=== PATIENT | male | born 1935 | race Two or more races ===

== ENCOUNTER 2020-07-17 12:29 | Inpatient (IN) | payer OTHER ==
[~2020-07-17] VITALS: Ht 177.8 cm; Wt 74.4 kg
[2020-07-17] MEDS ORDERED: MAGNESIUM SULFATE 1GM/100ML 100 ML IV ONE (12:45)
[2020-07-17] MEDS ORDERED: ALBUTEROL SULF 2.5 MG/0.5ML(0.5%) NEB SOLN NEB ONE (12:45)
[2020-07-17] MEDS ORDERED: BUDESONIDE (INHALATION) 0.5 MG/2 ML NEB NEB ONE (12:45)
[2020-07-17] MEDS ORDERED: cefTRIAXone 1GM/50ML D5W 50 ML IV ONE (12:45)
[2020-07-17] MEDS ORDERED: IPRATROPIUM BROM 0.5 MG/2.5ML INH SOL NEB ONE (12:45)
[2020-07-17] MEDS ORDERED: methylPREDNISolone SOD SUCC 125 MG/2 ML VL IV ONE (12:45)
[2020-07-17] MEDS ORDERED: HYDROcodone-ACET 5/325MG TAB PO ONE (13:15)
[2020-07-17 13:54] LABS: Basophils # (auto) 0 10 ^3/uL (0-0.2); Eosinophils # (auto) 0 10 ^3/uL (0-0.8); Eosinophils % (auto) 0.4 % (0.0-7.0); Hemoglobin 13.7 g/dL (13.5-17.5); Lymphocytes # (auto) 0.9 10 ^3/uL (0.4-5.4); Neutrophils # (auto) 7.8 10 ^3/uL (1.6-8.6); Red Cell Distribution Width 14.7 % (11.8-14.3)
[2020-07-17 13:57] LABS: Basophils % (auto) 0.1 % (0.0-2.0); Hematocrit 40.2 % (41.0-53.0); Lymphocytes % (auto) 9.6 % (10.0-50.0); Mean Corpuscular Hemoglobin 35.1 pg (28.0-32.0); Mean Corpuscular Volume 103.2 fL (80.0-100.0); Monocytes # (auto) 0.8 10 ^3/uL (0-1.3); Monocytes % (auto) 8.6 % (0.0-12.0); Neutrophils % (auto) 81.3 % (37.0-80.0); Platelet Count (auto) 155 10^3/uL (140-450); White Blood Cell 9.5 10^3/uL (4.4-10.8)
[2020-07-17 14:12] LABS: INR 1.03 (0.9-1.15); Partial Thromboplastin Time 24.5 sec (23.0-31.2)
[2020-07-17] MEDS ORDERED: ENOXAPARIN SOD 80 MG/0.8ML SYRINGE SC ONE (14:45)
[2020-07-17 14:48] LABS: Albumin 3.2 g/dL (3.4-5.0); Calcium 8.7 mg/dL (8.5-10.1); Magnesium 2.3 mg/dL (1.6-2.6); Potassium 3.8 mmol/L (3.5-5.1)
[2020-07-17 14:51] LABS: Lactic Acid w/Reflex 2.7 mmol/L (0.4-2.0)
[2020-07-17 14:56] LABS: BUN/Creatinine Ratio 12.4; Bilirubin, Total 0.6 mg/dL (0.2-1.0); CRP High Sensitivity 0.7 mg/dL (< 0.3); Total Protein 6.9 g/dL (6.4-8.2)
[2020-07-17] MEDS ORDERED: IOHEXOL 350 MG/ML 100ML IJ ONE (15:28)
[2020-07-17] MEDS ORDERED: NITROGLYCERIN 0.4 MG SL TAB SL PRN (16:15)
[2020-07-17] MEDS ORDERED: LACTULOSE 20Gm/30ML SOLN PO PRN (16:15)
[2020-07-17] MEDS ORDERED: ALBUTEROL SULF 2.5 MG/0.5ML(0.5%) NEB SOLN NEB PRN (16:15)
[2020-07-17] MEDS ORDERED: MORPHINE SULF INJ 2 MG/ML SYRINGE 1ML IV PRN ×2 (16:15)
[2020-07-17] MEDS ORDERED: traMADol HCL 50 MG TAB PO PRN (16:15)
[2020-07-17] MEDS ORDERED: ONDANSETRON HCL 4 MG/2 ML VIAL IV PRN (16:15)
[2020-07-17] MEDS: SODIUM CHLORIDE 0.9% 1,000 ML IV SCH (16:41)
[2020-07-17] MEDS: ALBUTEROL SULF 2.5 MG/0.5ML(0.5%) NEB SOLN NEB SCH (18:46)
[2020-07-17] MEDS: IPRATROPIUM BROM 0.5 MG/2.5ML INH SOL NEB SCH (18:46)
[2020-07-17 21:00] VITALS: BP 158/83
[2020-07-17] MEDS: ENOXAPARIN SOD 80 MG/0.8ML SYRINGE SC SCH (21:55)
[2020-07-18 00:35] VITALS: BP 158/83
[2020-07-18] MEDS: ALBUTEROL SULF 2.5 MG/0.5ML(0.5%) NEB SOLN NEB SCH ×4 (00:41→18:18)
[2020-07-18] MEDS: IPRATROPIUM BROM 0.5 MG/2.5ML INH SOL NEB SCH ×4 (00:41→18:18)
[2020-07-18] MEDS: ACETAMINOPHEN 500 MG TAB PO PRN ×2 (01:45→08:34)
[2020-07-18 05:45] VITALS: BP 129/67
[2020-07-18 05:48] VITALS: BP 136/88
[2020-07-18] MEDS: SODIUM CHLORIDE 0.9% 1,000 ML IV SCH (06:43)
[2020-07-18 08:00] VITALS: BP 149/84
[2020-07-18] MEDS ORDERED: methylPREDNISolone SOD SUCC 125 MG/2 ML VL IV ONE (10:30)
[2020-07-18] MEDS ORDERED: LORazepam 2MG/ML-1ML VIAL IV ONE (10:30)
[2020-07-18] MEDS ORDERED: IPRATROPIUM BROM 0.5 MG/2.5ML INH SOL NEB ONE (10:30)
[2020-07-18] MEDS ORDERED: ALBUTEROL SULF 2.5 MG/0.5ML(0.5%) NEB SOLN NEB ONE (10:30)
[2020-07-18] MEDS: ENOXAPARIN SOD 80 MG/0.8ML SYRINGE SC SCH ×2 (10:33→21:23)
[2020-07-18] MEDS ORDERED: LORazepam 0.5 MG TAB PO PRN (12:30)
[2020-07-18 16:00] VITALS: BP 133/79
[2020-07-18 16:21] LABS: Urine WBC None Seen /hpf (0 - 3)
[2020-07-18 16:28] LABS: Urine Bacteria NONE SEEN /hpf (None Seen); Urine Blood Negative /uL (Negative)
[2020-07-18] MEDS: methylPREDNISolone SOD SUCC 40 MG/ML VL IV SCH (21:23)
[2020-07-18] MEDS: TEMAZEPAM 15 MG CAP PO PRN (21:23)
[2020-07-18 22:34] VITALS: BP 125/68
[2020-07-19] MEDS: ALBUTEROL SULF 2.5 MG/0.5ML(0.5%) NEB SOLN NEB SCH ×4 (00:02→20:16)
[2020-07-19] MEDS: IPRATROPIUM BROM 0.5 MG/2.5ML INH SOL NEB SCH ×4 (00:02→20:16)
[2020-07-19 05:24] VITALS: BP 140/85
[2020-07-19 08:00] VITALS: BP 151/88
[2020-07-19] MEDS: ENOXAPARIN SOD 80 MG/0.8ML SYRINGE SC SCH ×2 (10:36→23:58)
[2020-07-19] MEDS: methylPREDNISolone SOD SUCC 40 MG/ML VL IV SCH ×2 (10:40→23:58)
[2020-07-19] MEDS ORDERED: LORazepam 2MG/ML-1ML VIAL IV PRN (10:45)
[2020-07-19] MEDS ORDERED: LORATADINE 10 MG TAB PO ONE (15:45)
[2020-07-19] MEDS ORDERED: ASPI-543 PO (15:49)
[2020-07-19] MEDS ORDERED: TAM04C PO (15:49)
[2020-07-19] MEDS ORDERED: PRED1PAK9 PO (15:49)
[2020-07-19] MEDS ORDERED: MULTCAP45 PO (15:49)
[2020-07-19] MEDS ORDERED: FLUT500M2 INH (15:49)
[2020-07-19] MEDS ORDERED: TIOT17SP IN (15:49)
[2020-07-19] MEDS ORDERED: ALBUAER3 IN (15:49)
[2020-07-19] MEDS ORDERED: NITR-87 PO (15:49)
[2020-07-19] MEDS ORDERED: MONT5CHW17 PO (15:49)
[2020-07-19 16:00] VITALS: BP 155/89
[2020-07-19 22:00] VITALS: BP 127/68
[2020-07-19] MEDS: TEMAZEPAM 15 MG CAP PO PRN (23:58)
[2020-07-20] MEDS: ALBUTEROL SULF 2.5 MG/0.5ML(0.5%) NEB SOLN NEB SCH ×5 (00:26→23:29)
[2020-07-20] MEDS: IPRATROPIUM BROM 0.5 MG/2.5ML INH SOL NEB SCH ×5 (00:26→23:29)
[2020-07-20 05:00] VITALS: BP 138/75
[2020-07-20 06:28] LABS: Eosinophils # (auto) 0 10 ^3/uL (0-0.8); Neutrophils # (auto) 8.4 10 ^3/uL (1.6-8.6); White Blood Cell 9.4 10^3/uL (4.4-10.8)
[2020-07-20 06:35] LABS: Basophils # (auto) 0 10 ^3/uL (0-0.2); Basophils % (auto) 0.4 % (0.0-2.0); Hematocrit 37.1 % (41.0-53.0); Hemoglobin 12.9 g/dL (13.5-17.5); Lymphocytes # (auto) 0.5 10 ^3/uL (0.4-5.4); Lymphocytes % (auto) 5.8 % (10.0-50.0); Mean Corpuscular Hgb Conc. 34.8 g/dL (32.0-36.0); Mean Corpuscular Volume 103.4 fL (80.0-100.0); Monocytes # (auto) 0.4 10 ^3/uL (0-1.3); Monocytes % (auto) 4.7 % (0.0-12.0); Neutrophils % (auto) 89.1 % (37.0-80.0); Platelet Count (auto) 168 10^3/uL (140-450); Red Blood Cells 3.58 10^6/uL (4.5-5.90); Red Cell Distribution Width 14.7 % (11.8-14.3)
[2020-07-20 06:47] LABS: Albumin 2.9 g/dL (3.4-5.0); Calcium 8.9 mg/dL (8.5-10.1); Potassium 4.2 mmol/L (3.5-5.1)
[2020-07-20 06:50] LABS: BUN/Creatinine Ratio 22.7; Bilirubin, Total 0.4 mg/dL (0.2-1.0); Total Protein 6.1 g/dL (6.4-8.2)
[2020-07-20 08:00] VITALS: BP 133/80
[2020-07-20] MEDS ORDERED: predniSONE 20 MG TAB PO ONE (10:00)
[2020-07-20] MEDS: ENOXAPARIN SOD 80 MG/0.8ML SYRINGE SC SCH ×2 (10:53→21:08)
[2020-07-20] MEDS: LORATADINE 10 MG TAB PO SCH (10:53)
[2020-07-20] MEDS: SALINE 0.65 % NASAL SPRAY 45ML BOTTLE EACHNOSTRI SCH ×3 (12:00→21:08)
[2020-07-20 16:00] VITALS: BP 153/86
[2020-07-20] MEDS: TEMAZEPAM 15 MG CAP PO PRN (21:08)
[2020-07-20 22:00] VITALS: BP 150/93
[2020-07-20] MEDS ORDERED: LORATADINE 10 MG TAB PO ONE (22:15)
[2020-07-21 05:00] VITALS: BP 136/89
[2020-07-21 05:31] LABS: Basophils # (auto) 0 10 ^3/uL (0-0.2); Eosinophils # (auto) 0 10 ^3/uL (0-0.8); Red Cell Distribution Width 14.3 % (11.8-14.3); White Blood Cell 9.1 10^3/uL (4.4-10.8)
[2020-07-21 05:34] LABS: Basophils % (auto) 0.4 % (0.0-2.0); Eosinophils % (auto) 0.4 % (0.0-7.0); Hematocrit 37.6 % (41.0-53.0); Lymphocytes % (auto) 21.5 % (10.0-50.0); Mean Corpuscular Hemoglobin 35.7 pg (28.0-32.0); Mean Corpuscular Hgb Conc. 34.5 g/dL (32.0-36.0); Mean Corpuscular Volume 103.5 fL (80.0-100.0); Monocytes % (auto) 10.6 % (0.0-12.0); Neutrophils # (auto) 6.1 10 ^3/uL (1.6-8.6); Neutrophils % (auto) 67.1 % (37.0-80.0); Platelet Count (auto) 174 10^3/uL (140-450); Red Blood Cells 3.63 10^6/uL (4.5-5.90)
[2020-07-21 05:52] LABS: Albumin 2.9 g/dL (3.4-5.0); Calcium 8.6 mg/dL (8.5-10.1); Potassium 3.8 mmol/L (3.5-5.1)
[2020-07-21 05:55] LABS: BUN/Creatinine Ratio 22.2; Bilirubin, Total 0.3 mg/dL (0.2-1.0)
[2020-07-21] MEDS: SALINE 0.65 % NASAL SPRAY 45ML BOTTLE EACHNOSTRI SCH ×2 (06:06→12:48)
[2020-07-21] MEDS: ALBUTEROL SULF 2.5 MG/0.5ML(0.5%) NEB SOLN NEB SCH ×2 (07:27→13:45)
[2020-07-21] MEDS: IPRATROPIUM BROM 0.5 MG/2.5ML INH SOL NEB SCH ×2 (07:27→13:45)
[2020-07-21 09:00] VITALS: BP 168/99
[2020-07-21] MEDS: LORATADINE 10 MG TAB PO SCH (09:57)
[2020-07-21] MEDS: ENOXAPARIN SOD 80 MG/0.8ML SYRINGE SC SCH (09:57)
[2020-07-21] MEDS ORDERED: predniSONE 20 MG TAB PO SCH (10:00)
[2020-07-21 12:00] VITALS: BP 142/79
[2020-07-21 13:03] VITALS: BP 142/79
== END 2020-07-21 13:35 | disposition home or self-care (01) | DRG 175 ==
LOC: ER 12:29 → EDBD 12:29 → TELE-CENTR 12:30
PROVIDERS: ADMIT Internal Medicine; ATTEND Family Medicine
DX: I26.99 Other pulmonary embolism without acute cor pulmonale (principal); J96.01 Acute respiratory failure with hypoxia; J45.901 Unspecified asthma with (acute) exacerbation; J98.11 Atelectasis; E04.1 Nontoxic single thyroid nodule; E66.3 Overweight; Z20.822 Contact with and (suspected) exposure to COVID-19; F41.9 Anxiety disorder, unspecified; Z83.3 Family history of diabetes mellitus; Z68.23 Body mass index [BMI] 23.0-23.9, adult
CPT/HCPCS: 36415; 36600; 71045; 71275; 76536; 80053; 81001; 82728; 82805; 83605; 83615; 83735; 83880; 84484; 85025; 85379; 85610; 85730; 86141; 87040; 87426; 93306; 93970; 94640; 96365; 96368; 96372; 99291; G0378; J0696

== ENCOUNTER 2021-05-24 17:33 | Emergency (ER) | payer OTHER ==
[~2021-05-24] VITALS: Ht 177.8 cm; Wt 71.7 kg
[~2021-05-24 17:33] MED LIST: ALBUAER3 IN; ASPI-543 PO; FLUT500M2 INH; MONT5CHW23 PO; MULTCAP45 PO; NITR-87 PO; PRED1PAK9 PO; TAM04C PO; TIOT17SP IN
[2021-05-24 17:34] VITALS: BP 144/86
[2021-05-24 18:52] LABS: Basophils # (auto) 0.1 10 ^3/uL (0-0.2); Eosinophils # (auto) 0.1 10 ^3/uL (0-0.8); Lymphocytes # (auto) 2.4 10 ^3/uL (0.4-5.4); Mean Corpuscular Hemoglobin 34.6 pg (28.0-32.0); Mean Corpuscular Hgb Conc. 34.2 g/dL (32.0-36.0); Nucleated Red Blood Cells % 0.2 %
[2021-05-24 18:54] LABS: Basophils % (auto) 0.7 % (0.0-2.0); Eosinophils % (auto) 1.9 % (0.0-7.0); Hematocrit 45.2 % (41.0-53.0); Hemoglobin 15.5 g/dL (13.5-17.5); Lymphocytes % (auto) 29.8 % (10.0-50.0); Mean Corpuscular Volume 101.2 fL (80.0-100.0); Monocytes # (auto) 0.9 10 ^3/uL (0-1.3); Monocytes % (auto) 10.8 % (0.0-12.0); Neutrophils # (auto) 4.5 10 ^3/uL (1.6-8.6); Neutrophils % (auto) 56.8 % (37.0-80.0); Red Blood Cells 4.47 10^6/uL (4.5-5.90); Red Cell Distribution Width 15.2 % (11.8-14.3); White Blood Cell 7.9 10^3/uL (4.4-10.8)
[2021-05-24] MEDS ORDERED: ACETAMINOPHEN 325 MG TAB PO ONE ×2 (18:56→19:30)
[2021-05-24 19:05] LABS: Albumin 3.5 g/dL (3.4-5.0); Calcium 8.9 mg/dL (8.5-10.1); Magnesium 2.8 mg/dL (1.6-2.6); Potassium 4.4 mmol/L (3.5-5.1)
[2021-05-24 19:15] LABS: BUN/Creatinine Ratio 13.4; Bilirubin, Total 0.5 mg/dL (0.2-1.0); Total Protein 7.4 g/dL (6.4-8.2)
[2021-05-24] MEDS ORDERED: TETANUS-DIPTH-ACEL PERTUSSIS 0.5ML SYR Tdap IM ONE (19:45)
[2021-05-24] MEDS ORDERED: ACET325T10 PO (19:54)
[2021-05-24] MEDS ORDERED: OXYM-20 (19:54)
[2021-05-24] MEDS ORDERED: CEPH-509 PO (19:54)
[2021-05-24] MEDS ORDERED: HYDR1TAB97 PO (19:54)
[2021-05-24] MEDS ORDERED: OXYM-15 NAS (19:54)
== END 2021-05-24 20:21 | disposition home or self-care (01) ==
LOC: ER 17:33
DX: S02.2XXA Fracture of nasal bones, initial encounter for closed fracture (principal); S01.81XA Laceration without foreign body of other part of head, initial encounter; J45.909 Unspecified asthma, uncomplicated; W01.0XXA Fall on same level from slipping, tripping and stumbling without subsequent striking against object, initial encounter; Y93.61 Activity, american tackle football; Y92.89 Other specified places as the place of occurrence of the external cause; Y99.8 Other external cause status
CPT/HCPCS: 36415; 70450; 70486; 71045; 72125; 80053; 80320; 83735; 84484; 85025; 90471; 90715; 93005

== ENCOUNTER 2021-07-20 13:33 | Emergency (ER) | payer OTHER ==
[~2021-07-20] VITALS: Ht 172.7 cm; Wt 63.5 kg
[~2021-07-20 13:33] MED LIST changes: +OXYM-20
[2021-07-20 14:09] LABS: Urine Bacteria FEW /hpf (None Seen); Urine Blood 2+ /uL (Negative); Urine Mucus FEW (None Seen); Urine Specific Gravity 1.013 (1.001-1.035); Urine WBC 735 /hpf (0 - 3)
[2021-07-20 15:39] LABS: Basophils # (auto) 0.1 10 ^3/uL (0-0.2); Basophils % (auto) 0.8 % (0.0-2.0); Eosinophils # (auto) 0.2 10 ^3/uL (0-0.8); Eosinophils % (auto) 1.9 % (0.0-7.0); Hematocrit 39.9 % (41.0-53.0); Hemoglobin 13.4 g/dL (13.5-17.5); Lymphocytes # (auto) 1.4 10 ^3/uL (0.4-5.4); Lymphocytes % (auto) 14.1 % (10.0-50.0); Mean Corpuscular Hgb Conc. 33.7 g/dL (32.0-36.0); Mean Corpuscular Volume 100.9 fL (80.0-100.0); Monocytes % (auto) 10.5 % (0.0-12.0); Neutrophils % (auto) 72.7 % (37.0-80.0); Red Blood Cells 3.95 10^6/uL (4.5-5.90); Red Cell Distribution Width 14.9 % (11.8-14.3); White Blood Cell 9.6 10^3/uL (4.4-10.8)
[2021-07-20 15:57] LABS: Albumin 3.2 g/dL (3.4-5.0); Calcium 8.9 mg/dL (8.5-10.1); Potassium 3.9 mmol/L (3.5-5.1)
[2021-07-20 16:03] LABS: BUN/Creatinine Ratio 8.6; Bilirubin, Total 0.8 mg/dL (0.2-1.0); Total Protein 7.4 g/dL (6.4-8.2)
[2021-07-20] MEDS ORDERED: CIPR500T4 PO (17:07)
[2021-07-20 18:07] VITALS: BP 148/72
== END 2021-07-20 18:09 | disposition home or self-care (01) ==
LOC: ER 13:33
DX: N39.0 Urinary tract infection, site not specified (principal); J45.909 Unspecified asthma, uncomplicated
CPT/HCPCS: 36415; 74176; 80053; 81001; 84484; 85025

== ENCOUNTER 2022-01-13 09:18 | Emergency (ER) | payer OTHER ==
[~2022-01-13] VITALS: Ht 172.7 cm; Wt 95.3 kg
[~2022-01-13 09:18] MED LIST changes: +CIPR500T4 PO
[2022-01-13 10:47] LABS: Basophils # (auto) 0 10 ^3/uL (0-0.2); Basophils % (auto) 0.5 % (0.0-2.0); Eosinophils # (auto) 0.2 10 ^3/uL (0-0.8); Eosinophils % (auto) 2.6 % (0.0-7.0); Hematocrit 41.1 % (41.0-53.0); Hemoglobin 13.4 g/dL (13.5-17.5); Lymphocytes # (auto) 1.7 10 ^3/uL (0.4-5.4); Lymphocytes % (auto) 30.1 % (10.0-50.0); Mean Corpuscular Hemoglobin 31.8 pg (28.0-32.0); Mean Corpuscular Hgb Conc. 32.6 g/dL (32.0-36.0); Mean Corpuscular Volume 97.6 fL (80.0-100.0); Monocytes # (auto) 0.6 10 ^3/uL (0-1.3); Monocytes % (auto) 11.1 % (0.0-12.0); Neutrophils # (auto) 3.2 10 ^3/uL (1.6-8.6); Neutrophils % (auto) 55.7 % (37.0-80.0); Nucleated Red Blood Cells % 0.1 %; Red Blood Cells 4.21 10^6/uL (4.5-5.90); Red Cell Distribution Width 14.7 % (11.8-14.3); White Blood Cell 5.8 10^3/uL (4.4-10.8)
[2022-01-13 11:01] LABS: Albumin 3.4 g/dL (3.4-5.0); BUN/Creatinine Ratio 8.3; Calcium 8.9 mg/dL (8.5-10.1); Magnesium 2.1 mg/dL (1.6-2.6); Potassium 4.7 mmol/L (3.5-5.1)
[2022-01-13 11:04] LABS: Bilirubin, Total 0.6 mg/dL (0.2-1.0); Total Protein 6.7 g/dL (6.4-8.2)
[2022-01-13] MEDS ORDERED: ALBUTEROL SULF 2.5 MG/0.5ML(0.5%) NEB SOLN NEB ONE (15:15)
[2022-01-14 02:42] VITALS: BP 125/56
== END 2022-01-13 17:47 | disposition short-term general hospital (02) ==
LOC: ER 09:18 → EDBD 09:18 → ER 17:47
DX: R55 Syncope and collapse (principal); G96.08 Other cranial cerebrospinal fluid leak; R41.82 Altered mental status, unspecified; J45.909 Unspecified asthma, uncomplicated; E78.5 Hyperlipidemia, unspecified; I10 Essential (primary) hypertension
CPT/HCPCS: 36415; 70450; 71045; 80053; 83735; 83880; 84484; 85025; 93005; 94644

== ENCOUNTER 2024-04-23 15:59 | Emergency (ER) | payer OTHER ==
[~2024-04-23] VITALS: Ht 172.7 cm; Wt 86.3 kg
[~2024-04-23 15:59] MED LIST changes: +MONT5CHW12 PO; -MONT5CHW23 PO; -TAM04C PO; +TAMS-35 PO
[2024-04-23 16:41] VITALS: PULSE 57; RESP 26; O2SAT 98
[2024-04-23 16:41] LABS: Hemoglobin 13.4 g/dL (13.5-17.5); Nucleated Red Blood Cells % 0.1 %
[2024-04-23 16:44] LABS: Basophils # (auto) 0.1 10 ^3/uL (0-0.2); Basophils % (auto) 1.4 % (0.0-2.0); Eosinophils # (auto) 0 10 ^3/uL (0-0.8); Eosinophils % (auto) 0.6 % (0.0-7.0); Hematocrit 38.8 % (41.0-53.0); Lymphocytes # (auto) 1.4 10 ^3/uL (0.4-5.4); Lymphocytes % (auto) 18.5 % (10.0-50.0); Mean Corpuscular Hgb Conc. 34.5 g/dL (32.0-36.0); Mean Corpuscular Volume 104.4 fL (80.0-100.0); Monocytes # (auto) 0.7 10 ^3/uL (0-1.3); Monocytes % (auto) 9.5 % (0.0-12.0); Neutrophils # (auto) 5.3 10 ^3/uL (1.6-8.6); Platelet Count (auto) 183 10^3/uL (140-450); Red Blood Cells 3.71 10^6/uL (4.5-5.90); Red Cell Distribution Width 16.2 % (11.8-14.3); White Blood Cell 7.6 10^3/uL (4.4-10.8)
[2024-04-23] MEDS: ALBUTEROL SULF 2.5 MG/0.5ML(0.5%) NEB SOLN NEB ONE (16:47)
[2024-04-23] MEDS: IPRATROPIUM BROM 0.5 MG/2.5ML INH SOL NEB ONE (16:47)
[2024-04-23] MEDS: ACETAMINOPHEN 325 MG TAB PO ONE (17:09)
[2024-04-23 17:15] LABS: Alanine Aminotransferase 23 U/L (7-40); Albumin 4.4 g/dL (3.2-4.8); Alkaline Phosphatase 69 U/L (46-116); Anion Gap 8 (5-15); Aspartate Aminotransferase 23 U/L (13-40); BUN/Creatinine Ratio 9.9 (10.0-20.0); Bilirubin, Total 0.9 mg/dL (0.2-1.0); Blood Urea Nitrogen 9 mg/dL (9-23); Carbon Dioxide 26 mmol/L (20-31); Chloride 103 mmol/L (98-107); Glucose 87 mg/dL (74-106); Potassium 3.6 mmol/L (3.5-5.1); Sodium 137 mmol/L (136-145); Total Protein 6.6 g/dL (5.7-8.2)
[2024-04-23 17:56] LABS: Urine Bacteria None Seen /hpf (None Seen)
[2024-04-23 18:12] LABS: Urine Blood Negative /uL (Negative); Urine Clarity Clear (Clear); Urine Color Light-Yellow (Yellow); Urine Hyaline Cast FEW /lpf (0 - 2); Urine Protein, UAD Negative (Negative); Urine Specific Gravity 1.006 (1.001-1.035); Urine Urobilinogen Normal (Negative); Urine WBC <1 /hpf (0 - 3)
[2024-04-23 19:00] LABS: COVID19 ANTIGEN SOFIA FIA NEGATIVE (NEGATIVE); Rapid Influenza A Negative (Negative); Rapid Influenza B Negative (Negative)
[2024-04-23] MEDS ORDERED: IPR002IS HHN (19:36)
[2024-04-23 19:43] VITALS: O2SAT 98
[2024-04-23 19:45] VITALS: BP 117/68; PULSE 62; RESP 14; TEMP 97.8; O2SAT 98
[2024-04-23] MEDS: methylPREDNISolone SOD SUCC 125 MG/2 ML VL IV ONE (19:56)
== END 2024-04-23 20:41 | disposition home or self-care (01) ==
LOC: EDBD 15:59 → ER 15:59
DX: J45.901 Unspecified asthma with (acute) exacerbation (principal); Z20.822 Contact with and (suspected) exposure to COVID-19
CPT/HCPCS: 36415; 71045; 80053; 81001; 83880; 84484; 85025; 87426; 87804; 93005; 94640; 96374; 99285; J2919

== ENCOUNTER 2024-06-10 10:58 | Emergency (ER) | payer OTHER ==
[~2024-06-10] VITALS: Ht 177.8 cm; Wt 68.0 kg
[~2024-06-10 10:58] MED LIST changes: +IPR002IS HHN
--- NOTE | 2024-06-10 11:28 | ED.PDOC ---
SOB-HPI HPI Comments 89Y M with PMHx HTN, asthma, and sleep apnea presents to ED via EMS for chief complaint SOB. Additional symptoms include chest pain and productive cough. Pt gave himself one breathing treatment at home with Albuterol and Atrovent. Pt was then seen by [facility] where he was given one breathing treatment. Once pt was with EMS, he was provided with two more breathing treatments. EMS states that pt's lungs had rhonchi sounds. Pt says he felt a little bit better after the breathing treatments. Pt has home O2 and only uses it as needed. No known allergies. Chief Complaint: Shortness of Breath Time Seen by MD: 11:11 Primary Care Provider: LIO Reviewed notes: Medications, Allergies Information Source: Patient, Emergency Med Personnel Mode of Arrival: EMS Brought in by: EMS Severity: Moderate Timing: Hours Duration: Since onset Context: At Rest PE Risk Factors: None History of: Asthma Prehospital treatment: 12 Lead EKG, Breathing Tx, Oxygen Modifying Factors: Nothing Associated Signs and Symptoms: Chest Pain Radiation: No Radiation If cough with SOB: Productive Past Medical History PAST MEDICAL HISTORY: Asthma, Cancer, HTN Past Medical History (Other): sleep apnea Surgical History: Denies all surgeries Family History Family History: Reviewed,noncontributory to illness Social History Smoker: Non-Smoker Alcohol: Occasionally Drugs: Denies Drug Use Lives In: Home Constitutional: denies: chills, diaphoresis, fatigue, fever, malaise, sweats, weakness, others EENTM: denies: blurred vision, double vision, ear bleeding, ear discharge, ear drainage, ear pain, ear ringing, eye pain, eye redness, hearing loss, mouth pain, mouth swelling, nasal discharge, nose bleeding, nose congestion, nose pain, photophobia, tearing, throat pain, throat swelling, voice changes, others Respiratory: reports: cough, shortness of breath; denies: hemoptysis, orthopnea, SOB at rest, SOB with excertion, stridor, wheezing, others Cardiovascular: reports: chest pain; denies: dizzy spells, diaphoresis, Dyspnea on exertion, edema, irregular heart beat, left arm pain, lightheadedness, palpitations, PND, syncope, others Gastrointestinal: denies: abdomen distended, abdominal pain, blood streaked bowels, constipated, diarrhea, dysphagia, difficulty swallowing, hematemesis, melena, nausea, poor appetite, poor fluid intake, rectal bleeding, rectal pain, vomiting, others Genitourinary: denies: burning, dysuria, flank pain, frequency, hematuria, incontinence, penile discharge, penile sore, pain, testicle pain, testicle swelling, urgency, others Neurological: denies: dizziness, fainting, headache, left sided numbness, left sided weakness, numbness, paresthesia, pre-existing deficit, right sided numbness, right sided weakness, seizure, speech problems, tingling, tremors, weakness, others Musculoskeletal: denies: back pain, gout, joint pain, joint swelling, muscle pain, muscle stiffness, neck pain, others Integumetry: denies: bruises, change in color, change in hair/nails, dryness, laceration, lesions, lumps, rash, wounds, others Allergic/Immunocompromised: denies: Difficulty Healing, Frequent Infections, Hives, Itching, others Hematologic/Lymphatic: denies: anemia, blood clots, easy bleeding, easy bruising, swollen glands, others Endocrine: denies: excessive hunger, excessive sweating, excessive thirst, excessive urination, flushing, intolerance to cold, intolerance to heat, unexplained weight gain, unexplained weight loss, others Psychiatric: denies: anxiety, bipolar disorder, depression, hopeless, panic disorder, schizophrenia, sleepless, suicidal, others All Other Systems: Reviewed and Negative Physical Exam General Appearance: No Apparent Distress, Normal HEENT: Normal ENT Inspection, Pharynx Normal, TMs Normal Neck: Full Range of Motion, Non-Tender, Normal, Normal Inspection Respiratory: Chest Non-Tender, Other (tachypneic, hypoxic) Cardiovascular: No Edema, No JVD, No Murmur, No Gallop, Normal Peripheral Pulses Breast Exam: Deferred Gastrointestinal: No Organomegaly, Non Tender, No Pulsatile Mass, Normal Bowel Sounds, Soft Genitalia: Deferred Pelvic: Deferred Rectal: Deferred Extremities: No calf tenderness, Normal capillary refill, Normal inspection, Normal range of motion, Non-tender, No pedal edema Musculoskeletal : Apperance: Normal Neurologic: Alert, car customizer II-XII nml as Tested, No Motor Deficits, Normal Affect, Normal Mood, No Sensory Deficits Cerebellar Function: NOT DONE Reflexes: NOT DONE Skin: Dry, Normal Color, Warm Lymphatic: No Adenopathy Was a procedure done? Was a procedure done?: No Differential Dx Differential Diagnosis: Asthma, Bronchitis, COPD, Pneumonia X-Ray, Labs, Meds, VS Vital Signs Date Time Temp Pulse Resp B/P (MAP) Pulse Ox O2 Delivery O2 Flow Rate FiO2 06/10/24 16:59 126/73 06/10/24 16:42 77 16 126/63 (84) 99 06/10/24 14:00 78 19 128/62 (84) 98 06/10/24 12:33 74 06/10/24 12:08 66 27 94 Nasal Cannula* 2 28 06/10/24 12:08 98.2 66 27 137/61 (86) 94 98.2 06/10/24 11:53 12 97 Nasal Cannula* 3 32 06/10/24 11:15 74 06/10/24 11:13 98.4 78 22 134/62 (86) 100 Lab Test 06/10/24 16:35 06/10/24 13:13 06/10/24 12:53 06/10/24 11:29 Range/Units Troponin I High Sensitivity 38 19 21 </=54 ng/L Influenza Type A Antigen Negative Negative Influenza Type B Antigen Negative Negative SARS-CoV-2 Antigen (Rapid) Negative NEGATIVE White Blood Count 8.8 4.4-10.8 10^3/uL Red Blood Count 3.82 L 4.5-5.90 10^6/uL Hemoglobin 13.6 13.5-17.5 g/dL Hematocrit 40.6 L 41.0-53.0 % Mean Corpuscular Volume 106.4 H 80.0-100.0 fL Mean Corpuscular Hemoglobin 35.6 H 28.0-32.0 pg Mean Corpuscular Hemoglobin Concent 33.4 32.0-36.0 g/dL Red Cell Distribution Width 14.8 H 11.8-14.3 % Platelet Count 197 140-450 10^3/uL Mean Platelet Volume 6.9 6.9-10.8 fL Neutrophils (%) (Auto) 75.1 37.0-80.0 % Lymphocytes (%) (Auto) 13.5 10.0-50.0 % Monocytes (%) (Auto) 8.8 0.0-12.0 % Eosinophils (%) (Auto) 2.0 0.0-7.0 % Basophils (%) (Auto) 0.6 0.0-2.0 % Neutrophils # (Auto) 6.6 1.6-8.6 10 ^3/uL Lymphocytes # (Auto) 1.2 0.4-5.4 10 ^3/uL Monocytes # (Auto) 0.8 0-1.3 10 ^3/uL Eosinophils # (Auto) 0.2 0-0.8 10 ^3/uL Basophils # (Auto) 0.1 0-0.2 10 ^3/uL Nucleated Red Blood Cells 0.1 % Sodium Level 136 136-145 mmol/L Potassium Level 4.3 3.5-5.1 mmol/L Chloride Level 103 98-107 mmol/L Carbon Dioxide Level 26 20-31 mmol/L Anion Gap 7 5-15 Blood Urea Nitrogen 9 9-23 mg/dL Creatinine 0.85 0.700-1.30 mg/dL Glomerular Filtration Rate Calc 83 >90 mL/min BUN/Creatinine Ratio 10.6 10.0-20.0 Serum Glucose 89 74-106 mg/dL Lactic Acid Level 1.1 0.4-2.0 mmol/L Calcium Level 9.6 8.7-10.4 mg/dL B-Type Natriuretic Peptide 65.25 0-100 pg/mL Current Medications Medications (Trade) Dose Ordered Sig/Marcello Route Start Time Stop Time Status Last Admin Albuterol (Ventolin Medneb) 5 mg ONCE ONCE NEB 06/10/24 11:30 06/10/24 11:31 DC 06/10/24 11:49 Ipratropium [place] (Atrovent Medneb) 0.5 mg ONCE ONCE NEB 06/10/24 11:30 06/10/24 11:31 DC 06/10/24 11:50 Azithromycin (Zithromax Tablet) 500 mg ONCE ONCE PO 06/10/24 11:30 06/10/24 11:31 DC 06/10/24 12:20 Acetaminophen (Tylenol Tablet) 650 mg ONCE ONCE PO 06/10/24 11:30 06/10/24 11:31 DC 06/10/24 12:20 Ondansetron HCl (Zofran) 4 mg ONCE ONCE IV 06/10/24 11:30 06/10/24 11:31 DC 06/10/24 12:20 Furosemide (Lasix Injection) 40 mg ONCE ONCE IV 06/10/24 16:45 06/10/24 16:46 DC 06/10/24 16:[address] [address] Ph: [phone] DIAGNOSTIC IMAGING Diagnostic Imaging Report : [id number] Signed PATIENT: JAS CASTELLONT: [id number] UNIT: [id number] : 1935 LOC: ER ROOM / BED: / AGE / SEX: 89 / M ADM STATUS: REG ER SERVICE 18 ORDERING PHYSICIAN: ANDRZEJ MALDONADO MD PROCEDURE(s): CXRP - CHEST PORTABLE REASON: sob ORDER NUMBER(s): [id number], ACCESSION NUMBER(s): [id number] CLINICAL INFORMATION: 89 years old, Male; shortness of breath. TECHNIQUE: Single AP portable chest radiograph was obtained. COMPARISON: XY CHEST XRAY 1 VIEW on DOS: 04/23/24, CHEST PORTABLE on DOS: 01/13/22, CXRP on DOS: 01/13/22 FINDINGS: Lungs: Moderate elevation of the left hemidiaphragm, unchanged. Atelectasis in the lung bases. Developing consolidation in the left lung base not excluded. Portions of the right costophrenic sulcus are excluded from the [id number] of the exam. Cardiac: Mild cardiomegaly. Pulmonary vasculature: Mild prominence of the pulmonary vasculature. Mediastinum/newton: Unremarkable. Bones: No acute osseous abnormality identified. Other: No other significant findings. IMPRESSION: 1. Cardiomegaly and prominence of the pulmonary vasculature, May suggest a degree of pulmonary vascular congestion in the appropriate clinical setting. 2. Atelectasis in the lung bases. Possible developing consolidation in the left lung base. Correlate with clinical findings. ATED BY: KEANU DUONG DO DICTATED DATE/TIME: 06/10/24 1300 SIGNED BY: KEANU DUONG DO SIGNED DATE/TIME: 06/10/24 1300 CC: Time of 1ST Reevaluation: 11:41 Reevaluation 1ST: Unchanged Patient Education/Counseling: Diagnosis, Treatment Family Education/Counseling: No Family Present Additional Information I reviewed the following notes from the pt's past medical encounters: [facility] ER 04/23/2024 dx SOB, [facility] discharge 07/21/2020 dx PE The following tests were ordered, and results were reviewed by me: EKG, CBC, BMP, BNP, lactic acid, Troponin x3, CXR Additional information was gathered from interviewing the following independent historians: EMS I reviewed and agreed with the following test results read by other providers: CXR I discussed treatments and results with medical personnel. Departure 1 Departure Time of Disposition: 17:40 (He is likely having a CHF exacerbation. Patient was offered admission but instead would like to go home. Patient is on his home level of oxygen, his breathing is much improved, and he is feeling well. I discussed with the patient careful return precautions and we will discharge patient with the increased dose of Lasix.) Impression: Primary Impression: Dyspnea Qualified Codes: R06.02 - Shortness of breath Additional Impression: Acute on chronic systolic (congestive) heart failure Disposition: HOME / SELF CARE / HOMELESS Condition: Stable Additional Instructions: You have excess fluid on you. You were prescribed more Lasix. Please take as directed. You should follow up with your regular doctor this week. If your symptoms worsen or you have any other concerns please return to the emergency room. e-Prescriptions Furosemide (Lasix) 20 Mg Tb 1 TAB PO DAILY for 7 Days, #7 TAB 1 Refill Prov: ANDRZEJ MALDONADO MD 06/10/24 Discharged With: Geodetic Advisor Critical Care Note Critical Care Time?: No Stability Stability form required: No Heart Score Heart Score: Heart Score Response (Comments) Value History N/A 0 EKG N/A 0 Age N/A 0 Risk Factors N/A 0 Troponin N/A 0 Total 0 I personally scribed for ANDRZEJ MALDONADO MD (EDMAR) on 06/10/24 at 11:27. Electronically submitted by Jessy Kuhn ([employer]). I personally scribed for ANDRZEJ MALDONADO MD (EDMAR) on 06/10/24 at 16:19. Electronically submitted by Jessy Kuhn ([employer]). ANDRZEJ MALDONADO MD Jun 10, 2024 11:27
[2024-06-10 11:46] LABS: Basophils # (auto) 0.1 10 ^3/uL (0-0.2); Eosinophils # (auto) 0.2 10 ^3/uL (0-0.8); Monocytes # (auto) 0.8 10 ^3/uL (0-1.3); White Blood Cell 8.8 10^3/uL (4.4-10.8)
[2024-06-10 11:48] LABS: Basophils % (auto) 0.6 % (0.0-2.0); Hematocrit 40.6 % (41.0-53.0); Hemoglobin 13.6 g/dL (13.5-17.5); Lymphocytes # (auto) 1.2 10 ^3/uL (0.4-5.4); Lymphocytes % (auto) 13.5 % (10.0-50.0); Mean Corpuscular Hemoglobin 35.6 pg (28.0-32.0); Mean Corpuscular Hgb Conc. 33.4 g/dL (32.0-36.0); Mean Corpuscular Volume 106.4 fL (80.0-100.0); Monocytes % (auto) 8.8 % (0.0-12.0); Neutrophils # (auto) 6.6 10 ^3/uL (1.6-8.6); Neutrophils % (auto) 75.1 % (37.0-80.0); Nucleated Red Blood Cells % 0.1 %; Platelet Count (auto) 197 10^3/uL (140-450); Red Blood Cells 3.82 10^6/uL (4.5-5.90); Red Cell Distribution Width 14.8 % (11.8-14.3)
[2024-06-10] MEDS: ALBUTEROL SULF 2.5 MG/0.5ML(0.5%) NEB SOLN NEB ONE (11:49)
[2024-06-10] MEDS: IPRATROPIUM BROM 0.5 MG/2.5ML INH SOL NEB ONE (11:50)
[2024-06-10 12:08] VITALS: PULSE 66; RESP 27; TEMP 98.2; O2SAT 94
[2024-06-10 12:13] LABS: Anion Gap 7 (5-15); Carbon Dioxide 26 mmol/L (20-31); Chloride 103 mmol/L (98-107); Potassium 4.3 mmol/L (3.5-5.1)
[2024-06-10 12:14] LABS: Calcium 9.6 mg/dL (8.7-10.4)
[2024-06-10 12:18] LABS: Sodium 136 mmol/L (136-145)
[2024-06-10 12:19] LABS: BUN/Creatinine Ratio 10.6 (10.0-20.0); Blood Urea Nitrogen 9 mg/dL (9-23); Glucose 89 mg/dL (74-106)
[2024-06-10] MEDS: ONDANSETRON HCL 4 MG/2 ML VIAL IV ONE (12:20)
[2024-06-10] MEDS: ACETAMINOPHEN 325 MG TAB PO ONE (12:20)
[2024-06-10] MEDS: AZITHROMYCIN 250 MG TAB PO ONE (12:20)
--- NOTE | 2024-06-10 13:02 | DVH ---
CLINICAL INFORMATION: 89 years old, Male; shortness of breath. TECHNIQUE: Single AP portable chest radiograph was obtained. COMPARISON: XY CHEST XRAY 1 VIEW on DOS: 04/23/24, CHEST PORTABLE on DOS: 01/13/22, CXRP on DOS: 01/13/22 FINDINGS: Lungs: Moderate elevation of the left hemidiaphragm, unchanged. Atelectasis in the lung bases. Develo ping consolidation in the left lung base not excluded. Portions of the right costophrenic sulcus are excluded from the [id number] of the exam. Cardiac: Mild cardiomegaly. Pulmonary vasculature: Mild prominence of the pulmonary vasculature. Mediastinum/newton: Unremarkable. Bones: No acute osseous abnormality identified. Other: No other significant findings. IMPRESSION: 1. Cardiomegaly and prominence of the pulmonary vasculature, May suggest a degree of pulmonary vascul ar congestion in the appropriate clinical setting. 2. Atelectasis in the lung bases. Possible developing consolidation in the left lung base. Correlate with clinical findings.
[2024-06-10 13:25] LABS: COVID19 ANTIGEN SOFIA FIA NEGATIVE (NEGATIVE); Rapid Influenza A Negative (Negative); Rapid Influenza B Negative (Negative)
[2024-06-10] MEDS: FUROSEMIDE 40 MG/4 ML VIAL IV ONE (16:59)
[2024-06-10] MEDS ORDERED: FURO1TAB33 PO (17:42)
[2024-06-10 17:47] VITALS: BP 102/54; PULSE 76; RESP 16; O2SAT 99
--- NOTE | 2024-06-10 18:53 | ECG ---
[facility] Test Date: 2024-06-10 Test Time: 11:15:16 Pat Name: [facility] Department: ER Room: Gender: M Building Construction Inspector: MACARIO : 1935 Requested By: ANDRZEJ MALDONADO Order Number: [id number] Reading MD: Manan Otero Measurements Intervals [place] Rate: 74 P: 72 TX: 162 QRS: -40 QRSD: 79 T: 38 QT: 383 QTc: 425 Interpretive Statements Sinus rhythm Left anterior fascicular block Baseline wander in lead(s) V5 Electronically Signed On 06-13-2024 16:11:40 PST by Manan Otero Please click the below link to view image of tracing.
== END 2024-06-10 17:55 | disposition home or self-care (01) ==
LOC: EDBD 10:58 → ER 10:58 → EDSEX 10:58 → ER 17:55
DX: I50.23 Acute on chronic systolic (congestive) heart failure (principal); I11.0 Hypertensive heart disease with heart failure; R06.02 Shortness of breath; J45.909 Unspecified asthma, uncomplicated; Z85.9 Personal history of malignant neoplasm, unspecified; Z20.822 Contact with and (suspected) exposure to COVID-19
CPT/HCPCS: 36415; 71045; 80048; 83605; 83880; 84484; 85025; 87426; 87804; 93005; 94640; 96374; 96375; 99285; J1940; J2405

== ENCOUNTER 2024-08-06 16:11 | Inpatient (IN) | payer OTHER ==
[~2024-08-06] VITALS: Ht 172.7 cm; Wt 64.1 kg
[~2024-08-06 16:11] MED LIST changes: +FURO1TAB33 PO
[2024-08-06] MEDS: ALBUTEROL SULF 2.5 MG/0.5ML(0.5%) NEB SOLN HHN ONE (17:39)
[2024-08-06] MEDS: IPRATROPIUM BROM 0.5 MG/2.5ML INH SOL HHN ONE (17:39)
[2024-08-06] MEDS: predniSONE 20 MG TAB PO ONE (17:40)
--- NOTE | 2024-08-06 17:59 | DVH ---
EXAM: XY CHEST XRAY 1 VIEW TECHNIQUE: Single frontal chest radiograph CLINICAL HISTORY: SOB COMPARISON: XY CHEST PORTABLE on DOS: 06/10/24, XY CHEST XRAY 1 VIEW on DOS: 04/23/24, CHEST PORTABLE on DOS: 01/13/22 Findings/Impression: Frontal chest radiograph demonstrates no acute osseous or superficial soft tissue abnormalities. The trachea is midline. The cardiac silhouette and mediastinum are within normal limits. No pneumothorax, pleural effusions, or consolidations.
[2024-08-06 18:57] LABS: Basophils # (auto) 0 10 ^3/uL (0-0.2); Eosinophils # (auto) 0 10 ^3/uL (0-0.8); Hematocrit 39.2 % (41.0-53.0); Hemoglobin 13.2 g/dL (13.5-17.5); Lymphocytes # (auto) 0.6 10 ^3/uL (0.4-5.4); Mean Corpuscular Hgb Conc. 33.7 g/dL (32.0-36.0); Mean Corpuscular Volume 100.9 fL (80.0-100.0); Monocytes # (auto) 0.4 10 ^3/uL (0-1.3); Monocytes % (auto) 5.3 % (0.0-12.0); Neutrophils # (auto) 6.5 10 ^3/uL (1.6-8.6); Neutrophils % (auto) 86.7 % (37.0-80.0); Nucleated Red Blood Cells % 0.1 %; Platelet Count (auto) 207 10^3/uL (140-450); Red Blood Cells 3.89 10^6/uL (4.5-5.90); Red Cell Distribution Width 14.5 % (11.8-14.3); White Blood Cell 7.6 10^3/uL (4.4-10.8)
--- NOTE | 2024-08-06 18:59 | ED.PDOC ---
SOB-HPI HPI Comments 89y M who presents to the ED for chief compliant of shortness of breath. Pt states he has been having shortness of breath for the past 1 week. Pt states he was hospitalized and given abx and steroids and discharged with outpatient medications. Pt states he was at home today and all day, was feeling short of breath and having nasal congestion and was brought by daughter to the ED. Pt in the ED, has headache, congestion and cough. Pt in the ED, has 02 sat of 95% on room air with all other vitals in normal range. Pt otherwise denies any other symptoms at this time. Chief Complaint: Shortness of Breath Time Seen by MD: 18:57 Primary Care Provider: LIO Friend notes: Nurses Notes Information Source: Patient, Relative Mode of Arrival: Ambulatory Brought in by: daughter Past Medical History PAST MEDICAL HISTORY: Asthma, Cancer, HTN Surgical History: Denies all surgeries Family History Family History: Reviewed,noncontributory to illness Social History Smoker: Non-Smoker Alcohol: Occasionally Drugs: Denies Drug Use Lives In: Home Constitutional: denies: chills, diaphoresis, fatigue, fever, malaise, sweats, weakness, others EENTM: reports: nose congestion; denies: blurred vision, double vision, ear bleeding, ear discharge, ear drainage, ear pain, ear ringing, eye pain, eye redness, hearing loss, mouth pain, mouth swelling, nasal discharge, nose bleeding, nose pain, photophobia, tearing, throat pain, throat swelling, voice changes, others Respiratory: reports: cough, shortness of breath; denies: hemoptysis, orthopnea, SOB at rest, SOB with excertion, stridor, wheezing, others Cardiovascular: denies: chest pain, dizzy spells, diaphoresis, Dyspnea on exertion, edema, irregular heart beat, left arm pain, lightheadedness, palpitations, PND, syncope, others Gastrointestinal: denies: abdomen distended, abdominal pain, blood streaked bowels, constipated, diarrhea, dysphagia, difficulty swallowing, hematemesis, melena, nausea, poor appetite, poor fluid intake, rectal bleeding, rectal pain, vomiting, others Genitourinary: denies: burning, dysuria, flank pain, frequency, hematuria, incontinence, penile discharge, penile sore, pain, testicle pain, testicle swelling, urgency, others Neurological: denies: dizziness, fainting, headache, left sided numbness, left sided weakness, numbness, paresthesia, pre-existing deficit, right sided numbness, right sided weakness, seizure, speech problems, tingling, tremors, weakness, others Musculoskeletal: denies: back pain, gout, joint pain, joint swelling, muscle pain, muscle stiffness, neck pain, others Integumetry: denies: bruises, change in color, change in hair/nails, dryness, laceration, lesions, lumps, rash, wounds, others Allergic/Immunocompromised: denies: Difficulty Healing, Frequent Infections, H [place]on, Itching, others Hematologic/Lymphatic: denies: anemia, blood clots, easy bleeding, easy bruising, swollen glands, others Endocrine: denies: excessive hunger, excessive sweating, excessive thirst, excessive urination, flushing, intolerance to cold, intolerance to heat, unexplained weight gain, unexplained weight loss, others Psychiatric: denies: anxiety, bipolar disorder, depression, hopeless, panic disorder, schizophrenia, sleepless, suicidal, others All Other Systems: Reviewed and Negative Physical Exam General Appearance: Moderate Distress, Thin HEENT: Normal ENT Inspection, Pharynx Normal, TMs Normal Neck: Full Range of Motion, Non-Tender, Normal, Normal Inspection Respiratory: Crackles, Respiratory Distress, Wheezing Cardiovascular: No Edema, No JVD, No Murmur, No Gallop, Normal Peripheral Pul ses, Regular Rate/Rhythm Breast Exam: Deferred Gastrointestinal: No Organomegaly, Non Tender, No Pulsatile Mass, Normal Bowel Sounds, Soft Genitalia: Deferred Pelvic: Deferred Rectal: Deferred Extremities: No calf tenderness, Normal capillary refill, Normal inspection, Normal range of motion, Non-tender, No pedal edema Musculoskeletal : Apperance: Normal Neurologic: Alert, road commissioner II-XII nml as Tested, No Motor Deficits, Normal Affect, Normal Mood, No Sensory Deficits Cerebellar Function: Normal Reflexes: Normal Skin: Dry, Normal Color, Warm Lymphatic: No Adenopathy Was a procedure done? Was a procedure done?: No Differential Dx Differential Diagnosis: Bronchitis, COPD, Myocardial infarction, Pneumonia, Pulmonary Embolism, Respiratory Distress, Pharyngitis, URI Comments influenza A and B, COVID X-Ray, Labs, Meds, VS Vital Signs Date Time Temp Pulse Resp B/P (MAP) Pulse Ox O2 Delivery O2 Flow Rate FiO2 08/06/24 19:54 97.9 88 22 95/50 (65) 96 97.9 08/06/24 17:49 Room Air* 0 21 08/06/24 17:47 98.2 96 17 102/50 (67) 93 98.2 08/06/24 17:39 22 96 Room Air* 0 21 08/06/24 16:35 91 08/06/24 16:27 98.3 92 23 102/56 (71) 95 Lab Test 08/06/24 18:31 Range/Units White Blood Count 7.6 4.4-10.8 10^3/uL Red Blood Count 3.89 L 4.5-5.90 10^6/uL Hemoglobin 13.2 L 13.5-17.5 g/dL Hematocrit 39.2 L 41.0-53.0 % Mean Corpuscular Volume 100.9 H 80.0-100.0 fL Mean Corpuscular Hemoglobin 34.0 H 28.0-32.0 pg Mean Corpuscular Hemoglobin Concent 33.7 32.0-36.0 g/dL Red Cell Distribution Width 14.5 H 11.8-14.3 % Platelet Count 207 140-450 10^3/uL Mean Platelet Volume 7.1 6.9-10.8 fL Neutrophils (%) (Auto) 86.7 H 37.0-80.0 % Lymphocytes (%) (Auto) 8.0 L 10.0-50.0 % Monocytes (%) (Auto) 5.3 0.0-12.0 % Eosinophils (%) (Auto) 0.0 0.0-7.0 % Basophils (%) (Auto) 0.0 0.0-2.0 % Neutrophils # (Auto) 6.5 1.6-8.6 10 ^3/uL Lymphocytes # (Auto) 0.6 0.4-5.4 10 ^3/uL Monocytes # (Auto) 0.4 0-1.3 10 ^3/uL Eosinophils # (Auto) 0 0-0.8 10 ^3/uL Basophils # (Auto) 0 0-0.2 10 ^3/uL Nucleated Red Blood Cells 0.1 % Sodium Level 138 136-145 mmol/L Potassium Level 3.5 3.5-5.1 mmol/L Chloride Level 99 98-107 mmol/L Carbon Dioxide Level 30 20-31 mmol/L Anion Gap 9 5-15 Blood Urea Nitrogen 17 9-23 mg/dL Creatinine 1.00 0.700-1.30 mg/dL Glomerular Filtration Rate Calc 72 >90 mL/min BUN/Creatinine Ratio 17.0 10.0-20.0 Serum Glucose 113 H 74-106 mg/dL Calcium Level 10.4 8.7-10.4 mg/dL Total Bilirubin 0.9 0.2-1.0 mg/dL Aspartate Amino Transferase (AST) 23 13-40 U/L Alanine Aminotransferase (ALT) 20 7-40 U/L Alkaline Phosphatase 78 46-116 U/L Total Protein 6.3 5.7-8.2 g/dL Albumin 4.3 3.2-4.8 g/dL Current Medications Medications (Trade) Dose Ordered Sig/Marcello Route Start Time Stop Time Status Last Admin Albuterol (Ventolin Medneb) 5 mg ONCE ONCE HHN 08/06/24 17:30 08/06/24 17:31 DC 08/06/24 17:39 Ipratropium [place] (Atrovent Medneb) 0.5 mg ONCE ONCE HHN 08/06/24 17:30 08/06/24 17:31 DC 08/06/24 17:39 Prednisone 40 mg ONCE ONCE PO 08/06/24 17:30 08/06/24 17:31 DC 08/06/24 17:40 [place] [address] Ph: [phone] DIAGNOSTIC IMAGING Diagnostic Imaging Report : [id number] Signed PATIENT: JAS CASTELLONT: [id number] UNIT: [id number] : 1935 LOC: ER ROOM / BED: / AGE / SEX: 89 / M ADM STATUS: REG ER SERVICE 26 ORDERING PHYSICIAN: KYRA ARRIAZA MD PROCEDURE(s): CXR1 - CHEST XRAY 1 VIEW REASON: SOB ORDER NUMBER(s): [id number], ACCESSION NUMBER(s): [id number] EXAM: XY CHEST XRAY 1 VIEW TECHNIQUE: Single frontal chest radiograph CLINICAL HISTORY: SOB COMPARISON: XY CHEST PORTABLE on DOS: 06/10/24, XY CHEST XRAY 1 VIEW on DOS: 04/23/24, CHEST PORTABLE on DOS: 01/13/22 Findings/Impression: Frontal chest radiograph demonstrates no acute osseous or superficial soft tissue abnormalities. The trachea is midline. The cardiac silhouette and mediastinum are within normal limits. No pneumothorax, pleural effusions, or consolidations. ATED BY: BECKY ORTZI DO DICTATED DATE/TIME: 08/06/241756 SIGNED BY: BECKY ORTIZ DO SIGNED DATE/TIME: 08/06/241756 CC: Time of 1ST Reevaluation: 19:30 Reevaluation 1ST: Unchanged Time of 2ND Reevaluation: 19:58 Reevaluation 2ND: Unchanged Consultation: Other ([facility] physician Dr Jose Ballard # [id number]) Patient Education/Counseling: Diagnosis, Treatment Family Education/Counseling: Diagnosis, Treatment Departure 1 Departure Time of Disposition: 19:59 ([facility] physician Dr Jose Ballard # [id number]) Impression: Primary Impression: COPD exacerbation Disposition: [address] [facility] Admit to: Med Surg Condition: Guarded Discharged With: Self, Relative Critical Care Note Critical Care Time?: Yes (45 min-critical care time only) Critical care comment: Total critical care time: Approximately 36 minutes Due to a high probability of clinically significant, life threatening deterioration, the patient required my highest level of preparedness to intervene emergently and I personally spent this critical care time directly and personally managing the patient. This critical care time included obtaining a history; examining the patient; pulse oximetry; ordering and review of studies; arranging urgent treatment with development of a management plan; evaluation of patient's response to treatment; frequent reassessment; and, discussions with other providers. This critical care time was performed to assess and manage the high probability of imminent, life-threatening deterioration that could result in multi-organ failure. It was exclusive of separately billable procedures and treating other patients. Stability Stability form required: No Heart Score Heart Score: Heart Score Response (Comments) Value History Slightly Suspicious 0 EKG Normal 0 Age >65 2 Risk Factors 1 or 2 risk factors 1 Troponin Normal limit 0 Total 3 I personally scribed for KYRA ARRIAZA MD ([email or web address]) on 08/06/24 at 18:59. Electronically submitted by Norman Fox ([employer]). KYRA ARRIAZA MD Aug 06, 2024 18:59
[2024-08-06 19:22] LABS: Alanine Aminotransferase 20 U/L (7-40); Albumin 4.3 g/dL (3.2-4.8); Alkaline Phosphatase 78 U/L (46-116); Anion Gap 9 (5-15); Aspartate Aminotransferase 23 U/L (13-40); Blood Urea Nitrogen 17 mg/dL (9-23); Calcium 10.4 mg/dL (8.7-10.4); Carbon Dioxide 30 mmol/L (20-31); Chloride 99 mmol/L (98-107); Sodium 138 mmol/L (136-145)
[2024-08-06 19:23] LABS: Bilirubin, Total 0.9 mg/dL (0.2-1.0); Total Protein 6.3 g/dL (5.7-8.2)
[2024-08-06 19:39] LABS: Glucose 113 mg/dL (74-106); Potassium 3.5 mmol/L (3.5-5.1)
[2024-08-06] MEDS ORDERED: ONDANSETRON HCL 4 MG/2 ML VIAL IV PRN (21:30)
[2024-08-06] MEDS ORDERED: ACETAMINOPHEN 325 MG TAB PO PRN (21:30)
[2024-08-06 21:55] VITALS: BP 95/50; PULSE 79; RESP 14; O2SAT 96
--- NOTE | 2024-08-06 22:14 | DVHHP2 ---
History of Present Illness Reason for Visit: Shortness of breath History of Present Illness 89-year-old male presents for evaluation of shortness for breath. Patient endorses a one-week history of shortness for breath and a productive cough with yellowish/white phlegm. He also reports occasional chills. Denies chest pain or palpitations. No other acute complaints reported. Past Medical History Hypertension, asthma and cancer Family History Noncontributory Smoke: No ALCOHOL: occassional Drugs: None Lives: with Family Review of Systems Review of Systems Review of systems are currently negative otherwise addressed in HPI. Allergies: Coded Allergies: NO KNOWN ALLERGIES (Unverified , 07/17/20) Medications Current Medications Medications Dose Ordered Sig/Marcello Route Start Time Stop Time Status Last Admin Dose Admin Albuterol 2.5 mg Q6HPRN PRN NEB 08/06/24 21:30 Ipratropium [place] 0.5 mg Q6HPRN PRN NEB 08/06/24 21:30 Methylprednisolone Sodium Succinate 40 mg BID IV 08/06/24 22:00 Aspirin 81 mg DAILY PO 08/07/24 10:00 Furosemide 20 mg DAILY PO 08/07/24 10:00 Montelukast Sodium 10 mg HS PO 08/06/24 22:00 Tamsulosin HCl 0.4 mg QPM PO 08/07/24 18:00 Ondansetron HCl 4 mg Q4HP PRN IV 08/06/24 21:30 Enoxaparin Sodium 40 mg DAILY SC 08/07/24 10:00 Acetaminophen 650 mg Q6HP PRN PO 08/06/24 21:30 Guaifenesin/ Dextromethorphan 10 ml Q4HP PRN PO 08/06/24 22:15 UNV Azithromycin 250 ml @ 125 mls/hr DAILY IV 08/07/24 10:00 UNV Exam Vital Signs Vital Signs Date Time Temp Pulse Resp B/P (MAP) Pulse Ox O2 Delivery O2 Flow Rate FiO2 08/06/24 21:55 79 14 95/50 96 08/06/24 19:54 97.9 97.9 08/06/24 17:49 Room Air* 0 21 Exam Gen: 89-year-old male in mild distress Skin: Warm, dry, normal color and texture, no rash. HEENT: Normocephalic atraumatic, mucous membranes moist and pink. Neck: Cervical and supraclavicular nodes normal without enlargement, trachea is midline, thyroid gland is normal without masses. Pulmonary: Bilateral rhonchi Cardiac: Regular rate and rhythm. No murmur Abdomen: Soft, nontender, nondistended, bowel sounds present all 4 quadrants, no guarding, no rigidity, no organomegaly. Extremities: No cyanosis, clubbing, no edema Neuro: Cranial nerves II through XII grossly intact, normal affect and speech, no focal motor deficits. Labs/Xrays ORDERING PHYSICIAN: KYRA ARRIAZA MD PROCEDURE(s): CXR1 - CHEST XRAY 1 VIEW REASON: SOB ORDER NUMBER(s): [id number], ACCESSION NUMBER(s): [id number] EXAM: XY CHEST XRAY 1 VIEW TECHNIQUE: Single frontal chest radiograph CLINICAL HISTORY: SOB COMPARISON: XY CHEST PORTABLE on DOS: 06/10/24, XY CHEST XRAY 1 VIEW on DOS: 04/23/24, CHEST PORTABLE on DOS: 01/13/22 Findings/Impression: Frontal chest radiograph demonstrates no acute osseous or superficial soft tissue abnormalities. The trachea is midline. The cardiac silhouette and mediastinum are within normal limits. No pneumothorax, pleural effusions, or consolidations. Labs Test 08/06/24 18:31 Range/Units White Blood Count 7.6 4.4-10.8 10^3/uL Red Blood Count 3.89 L 4.5-5.90 10^6/uL Hemoglobin 13.2 L 13.5-17.5 g/dL Hematocrit 39.2 L 41.0-53.0 % Mean Corpuscular Volume 100.9 H 80.0-100.0 fL Mean Corpuscular Hemoglobin 34.0 H 28.0-32.0 pg Mean Corpuscular Hemoglobin Concent 33.7 32.0-36.0 g/dL Red Cell Distribution Width 14.5 H 11.8-14.3 % Platelet Count 207 140-450 10^3/uL Mean Platelet Volume 7.1 6.9-10.8 fL Neutrophils (%) (Auto) 86.7 H 37.0-80.0 % Lymphocytes (%) (Auto) 8.0 L 10.0-50.0 % Monocytes (%) (Auto) 5.3 0.0-12.0 % Eosinophils (%) (Auto) 0.0 0.0-7.0 % Basophils (%) (Auto) 0.0 0.0-2.0 % Neutrophils # (Auto) 6.5 1.6-8.6 10 ^3/uL Lymphocytes # (Auto) 0.6 0.4-5.4 10 ^3/uL Monocytes # (Auto) 0.4 0-1.3 10 ^3/uL Eosinophils # (Auto) 0 0-0.8 10 ^3/uL Basophils # (Auto) 0 0-0.2 10 ^3/uL Nucleated Red Blood Cells 0.1 % Sodium Level 138 136-145 mmol/L Potassium Level 3.5 3.5-5.1 mmol/L Chloride Level 99 98-107 mmol/L Carbon Dioxide Level 30 20-31 mmol/L Anion Gap 9 5-15 Blood Urea Nitrogen 17 9-23 mg/dL Creatinine 1.00 0.700-1.30 mg/dL Glomerular Filtration Rate Calc 72 >90 mL/min BUN/Creatinine Ratio 17.0 10.0-20.0 Serum Glucose 113 H 74-106 mg/dL Calcium Level 10.4 8.7-10.4 mg/dL Total Bilirubin 0.9 0.2-1.0 mg/dL Aspartate Amino Transferase (AST) 23 13-40 U/L Alanine Aminotransferase (ALT) 20 7-40 U/L Alkaline Phosphatase 78 46-116 U/L Total Protein 6.3 5.7-8.2 g/dL Albumin 4.3 3.2-4.8 g/dL Assessment/Plan Assessment/Plan Assessment Acute on chronic respiratory failure Asthma exacerbation Acute pneumonitis Hypertension Plan [place] [facility] [place] [facility] Azithromycin Resume home medications Continue treatment per orders. Plan discussed with: Patient My Orders Orders - MONICA DEL VALLE AGACNP Procedure Category Date Status Time Covid19 Antigen Luz Maria LAB 08/06/24 Logged Albuterol Medneb PHA 08/06/24 In Process (Ventolin Medneb) 21:30 Ipratropium Medneb PHA 08/06/24 In Process (Atrovent Medneb) 21:30 Methylprednisolone PHA 08/06/24 In Process Sod Succ (Solu Medrol 22:00 Aspirin Tablet PHA 08/07/24 In Process 10:00 Furosemide Tablet PHA 08/07/24 In Process (Lasix Tablet) 10:00 Montelukast Tablet PHA 08/06/24 In Process (Singulair Tablet) 22:00 Tamsulosin PHA 08/07/24 In Process Hydrochloride (Flomax) 18:00 Basic Metabolic Panel LAB 08/07/24 Verified 04:00 Admit ADMIT 08/06/24 Transmitted 21:30 Ondansetron Hcl PHA 08/06/24 In Process (Zofran) 21:30 Enoxaparin Sodium PHA 08/07/24 In Process (Lovenox) 10:00 Complete Blood Count LAB 08/07/24 Verified 04:00 Cardiac DIET 08/07/24 Transmitted Diet-2gna,Lofat,Lochol Breakfast Condition: Stable SILVIA 08/06/24 In Process 21:30 Acetaminophen Tablet PHA 08/06/24 In Process (Tylenol Tablet) 21:30 Bedrest With Bathroom SILVIA 08/06/24 In Process Privileg 21:30 B-Type Natriuretic LAB 08/06/24 In Process Peptide 21:30 D-Dimer LAB 08/06/24 In Process 21:30 Guaifenesin-Dextromet PHA 08/06/24 Logged Liquid (Robitussin 22:15 Azithromycin 500mg/ PHA 08/07/24 Logged 250ml (Zithromax 50 10:00 Azithromycin 500mg/ PHA 08/06/24 Logged 250ml (Zithromax 50 22:15 Date of Service: Aug 06, 2024 Billing Provider: MONICA DEL VALLE Common Visit Codes: [id number] INP/OBS CARE (HIGH) MONICA DEL VALLE Aug 06, 2024 22:14
[2024-08-06] MEDS ORDERED: AZITHROMYCIN 500MG/ 250ML 250 ML IV ONE (22:15)
[2024-08-06] MEDS: methylPREDNISolone SOD SUCC 40 MG/ML VL IV SCH (22:37)
[2024-08-06] MEDS: MONTELUKAST SODIUM 10 MG TAB PO SCH (22:37)
[2024-08-06 22:40] VITALS: O2SAT 95
[2024-08-06 23:32] LABS: COVID19 ANTIGEN SOFIA FIA NEGATIVE (NEGATIVE)
[2024-08-06 23:47] LABS: Rapid Influenza A Negative (Negative); Rapid Influenza B Negative (Negative)
[2024-08-07] VITALS (20 sets, daily range): BP systolic 124–139; BP diastolic 60–81; PULSE 68–98; RESP 16–20; TEMP 97.3–98.1; O2SAT 0–100
[2024-08-07] MEDS: guaiFENesin-DM 100/10mg/5ml SYR PO PRN (02:18)
[2024-08-07] MEDS: ALBUTEROL SULF 2.5 MG/0.5ML(0.5%) NEB SOLN NEB PRN (02:19)
[2024-08-07] MEDS: IPRATROPIUM BROM 0.5 MG/2.5ML INH SOL NEB PRN (02:19)
[2024-08-07 08:19] LABS: Basophils # (auto) 0 10 ^3/uL (0-0.2); Eosinophils # (auto) 0 10 ^3/uL (0-0.8); Hemoglobin 12.6 g/dL (13.5-17.5); Monocytes # (auto) 0.4 10 ^3/uL (0-1.3); Neutrophils # (auto) 4.8 10 ^3/uL (1.6-8.6); Neutrophils % (auto) 82.1 % (37.0-80.0); Nucleated Red Blood Cells % 0.1 %; White Blood Cell 5.8 10^3/uL (4.4-10.8)
[2024-08-07 08:24] LABS: Hematocrit 36.5 % (41.0-53.0); Lymphocytes # (auto) 0.6 10 ^3/uL (0.4-5.4); Lymphocytes % (auto) 10.2 % (10.0-50.0); Mean Corpuscular Hemoglobin 34.5 pg (28.0-32.0); Mean Corpuscular Hgb Conc. 34.6 g/dL (32.0-36.0); Mean Corpuscular Volume 99.8 fL (80.0-100.0); Monocytes % (auto) 7.7 % (0.0-12.0); Platelet Count (auto) 179 10^3/uL (140-450); Red Blood Cells 3.66 10^6/uL (4.5-5.90); Red Cell Distribution Width 14.6 % (11.8-14.3)
[2024-08-07 08:41] LABS: Chloride 98 mmol/L (98-107); Potassium 3.6 mmol/L (3.5-5.1)
[2024-08-07 08:42] LABS: Calcium 9.7 mg/dL (8.7-10.4)
[2024-08-07 08:47] LABS: BUN/Creatinine Ratio 13.6 (10.0-20.0); Blood Urea Nitrogen 11 mg/dL (9-23); Carbon Dioxide 29 mmol/L (20-31)
[2024-08-07 08:54] LABS: Glucose 128 mg/dL (74-106)
[2024-08-07 08:55] LABS: Anion Gap 8 (5-15); Sodium 135 mmol/L (136-145)
[2024-08-07] MEDS: AZITHROMYCIN 500MG/ 250ML 250 ML IV SCH (10:00)
[2024-08-07] MEDS: ASPirin 81 mg TAB PO SCH (10:42)
[2024-08-07] MEDS: ENOXAPARIN SOD 40 MG/0.4 ML SYRINGE SC SCH (10:44)
[2024-08-07] MEDS: FUROSEMIDE 20 MG TAB PO SCH (10:53)
--- NOTE | 2024-08-07 11:59 | DVHPN2 ---
Progress Note Date Seen: Aug 07, 2024 Medical Necessity Reason Pt with a Central, PICC or Fol: No Subjective Patient reports: No new complaints Review of Systems: HEENT:Normal, CVS:Normal, RESPIRATORY:Normal, GI:Normal, :Normal, MSK:Normal, NEURO:Normal Objective vital signs Vital Sign Date Time Temp Pulse Resp B/P (MAP) Pulse Ox O2 Delivery O2 Flow Rate FiO2 08/07/24 10:53 135/66 08/07/24 10:00 94 Room Air 0.0 08/07/24 10:00 21 08/07/24 06:22 72 18 08/07/24 05:00 97.3 97.3 Total Intake and Output 08/06/24 08/06/24 08/07/24 15:00 23:00 07:00 Intake Total 100 ml Balance 100 ml medications Current Medications Medications Dose Ordered Sig/Marcello Route Start Time Stop Time Status Last Admin Dose Admin Albuterol 2.5 mg Q6HPRN PRN NEB 08/06/24 21:30 08/07/24 06:12 2.5 MG Ipratropium [place] 0.5 mg Q6HPRN PRN NEB 08/06/24 21:30 08/07/24 06:12 0.5 MG Methylprednisolone Sodium Succinate 40 mg BID IV 08/06/24 22:00 08/07/24 10:43 40 MG Aspirin 81 mg DAILY PO 08/07/24 10:00 08/07/24 10:42 81 MG Furosemide 20 mg DAILY PO 08/07/24 10:00 08/07/24 10:53 20 MG Montelukast Sodium 10 mg HS PO 08/06/24 22:00 08/06/24 22:37 10 MG Tamsulosin HCl 0.4 mg QPM PO 08/07/24 18:00 Ondansetron HCl 4 mg Q4HP PRN IV 08/06/24 21:30 Enoxaparin Sodium 40 mg DAILY SC 08/07/24 10:00 08/07/24 10:44 40 MG Acetaminophen 650 mg Q6HP PRN PO 08/06/24 21:30 Guaifenesin/ Dextromethorphan 10 ml Q4HP PRN PO 08/06/24 22:15 08/07/24 02:18 10 ML Azithromycin 250 ml @ 125 mls/hr DAILY IV 08/07/24 10:00 08/07/24 10:00 125 MLS/HR Examination: GENERAL:Normal, HEENT:Normal, NECK:Normal, LUNGS:Normal, CVS:Normal, ABDOMEN:Normal, MSK:Normal, SKIN:Normal, NEURO:Normal, :Normal laboratory and microbiology Laboratory Tests 08/07/24 07:51 Test 08/07/24 07:51 Range/Units Serum Glucose 128 H 74-106 mg/dL Problem List/Assessment/Plan Problem List/Assessment/Plan #1 copd with exacerbation: steroids, bronchodilators #2 ?pneumonia- gram positive/neg:iv antibiotics #3 ? chronic diastolic heart failure #4 bph advance care planning- full code- time spent 19 mins left message for srikanth Daniels Plan discussed with: Patient Date of Service: Aug 07, 2024 Billing Provider: MONICA DODGE MD Common Visit Codes: [id number] INP/OBS CARE(HIGH) Secondary Visit Codes: [id number] CARE PLAN 30 MINUTES MONICA DODGE MD Aug 07, 2024 11:59
[2024-08-07] MEDS: IPRATROPIUM BROM 0.5 MG/2.5ML INH SOL NEB SCH (12:06)
[2024-08-07] MEDS: ALBUTEROL SULF 2.5 MG/0.5ML(0.5%) NEB SOLN NEB SCH (12:06)
[2024-08-07] MEDS: cefTRIAXone 1GM/50ML D5W 50 ML IV ONE (12:47)
[2024-08-07] MEDS: TAMSULOSIN HYDROCHLORIDE 0.4 MG CAP PO SCH (17:42)
[2024-08-07 20:44] LABS: Urine Bacteria None Seen /hpf (None Seen)
[2024-08-07 21:23] LABS: Urine Blood Negative /uL (Negative); Urine Clarity Clear (Clear); Urine Color Light-Yellow (Yellow); Urine Protein, UAD Negative (Negative); Urine Specific Gravity 1.007 (1.001-1.035); Urine Squamous Epithelial Cell FEW /hpf (<5); Urine Urobilinogen Normal (Negative); Urine pH 6.5 (5.0-9.0)
[2024-08-07 21:38] LABS: Urine WBC < 1 /HPF (0-3)
[2024-08-08] VITALS (16 sets, daily range): BP systolic 96–145; BP diastolic 59–76; PULSE 67–103; RESP 14–24; TEMP 97.5–97.9; O2SAT 92–100
[2024-08-08] MEDS: cefTRIAXone 1GM/50ML D5W 50 ML IV SCH (10:13)
[2024-08-08] MEDS: ALBUTEROL SULF 2.5 MG/0.5ML(0.5%) NEB SOLN NEB PRN (10:46)
--- NOTE | 2024-08-08 11:16 | DVHPN2 ---
Progress Note Date Seen: Aug 08, 2024 Medical Necessity Reason Pt with a Central, PICC or Fol: No Subjective Patient reports: No new complaints Review of Systems: HEENT:Normal, CVS:Normal, RESPIRATORY:Normal, GI:Normal, :Normal, MSK:Normal, NEURO:Normal Objective vital signs Vital Sign Date Time Temp Pulse Resp B/P (MAP) Pulse Ox O2 Delivery O2 Flow Rate FiO2 08/08/24 10:52 84 22 100 08/08/24 10:46 Nasal Cannula* 3 32 08/08/24 10:12 134/66 08/08/24 09:11 97.5 97.5 Total Intake and Output 08/07/24 08/07/24 08/08/24 15:00 23:00 07:00 Intake Total 300 ml 800 ml 140 ml Output Total 160 ml Balance 300 ml 800 ml -20 ml medications Current Medications Medications Dose Ordered Sig/Marcello Route Start Time Stop Time Status Last Admin Dose Admin Methylprednisolone Sodium Succinate 40 mg BID IV 08/06/24 22:00 08/08/24 10:10 40 MG Aspirin 81 mg DAILY PO 08/07/24 10:00 08/08/24 10:13 81 MG Furosemide 20 mg DAILY PO 08/07/24 10:00 08/08/24 10:12 20 MG Montelukast Sodium 10 mg HS PO 08/06/24 22:00 08/07/24 21:07 10 MG Tamsulosin HCl 0.4 mg QPM PO 08/07/24 18:00 08/07/24 17:42 0.4 MG Ondansetron HCl 4 mg Q4HP PRN IV 08/06/24 21:30 Enoxaparin Sodium 40 mg DAILY SC 08/07/24 10:00 08/08/24 10:11 40 MG Acetaminophen 650 mg Q6HP PRN PO 08/06/24 21:30 Guaifenesin/ Dextromethorphan 10 ml Q4HP PRN PO 08/06/24 22:15 08/07/24 21:07 10 ML Azithromycin 250 ml @ 125 mls/hr DAILY IV 08/07/24 10:00 08/07/24 10:00 125 MLS/HR Albuterol 2.5 mg Q4HP PRN NEB 08/07/24 12:00 08/08/24 10:46 2.5 MG Albuterol 2.5 mg Q6HWA NEB 08/07/24 12:00 08/08/24 06:48 2.5 MG Ipratropium [place] 0.5 mg Q6HWA NEB 08/07/24 12:00 08/08/24 06:48 0.5 MG Ceftriaxone Sodium 50 ml @ 100 mls/hr DAILY@09 IV 08/08/24 09:00 08/08/24 10:13 100 MLS/HR Examination: GENERAL:Normal, HEENT:Normal, NECK:Normal, LUNGS:Normal, LUNGS:Abnormal (on oxygen, coarse), CVS:Normal, ABDOMEN:Normal, MSK:Normal, SKIN:Normal, NEURO:Normal, :Normal laboratory and microbiology Laboratory Tests 08/07/24 07:51 Test 08/07/24 07:51 Range/Units Serum Glucose 128 H 74-106 mg/dL Problem List/Assessment/Plan Problem List/Assessment/Plan #1 copd with exacerbation: steroids, bronchodilators #2 ?pneumonia- gram positive/neg:iv antibiotics #3 ? chronic diastolic heart failure: lasix iv, xray #4 bph #5 ?h/o prostate cancer #6 acute resp failure: on oxygen unstable for transfer advance care planning- full code- time spent 19 mins left message for srikanth Gallardogloria minaya today- [phone] Plan discussed with: Patient My Orders My Orders Orders - MONICA DODGE MD Procedure Category Date Status Time Albuterol Medneb PHA 08/07/24 In Process (Ventolin Medneb) 12:00 Albuterol Medneb PHA 08/07/24 In Process (Ventolin Medneb) 12:00 Ipratropium Medneb PHA 08/07/24 In Process (Atrovent Medneb) 12:00 Ceftriaxone 1gm/50ml PHA 08/08/24 In Process D5w (Rocephin) 09:00 Chest Xray 1 View XY 08/08/24 Logged 11:05 News Reel Cameraman ORDERS 08/08/24 Transmitted 11:08 Date of Service: Aug 08, 2024 Billing Provider: MONICA DODGE MD Common Visit Codes: [id number] INP/OBS CARE(HIGH) MONICA DODGE MD Aug 08, 2024 11:16
--- NOTE | 2024-08-08 11:38 | DVH ---
CHEST RADIOGRAPH Indication: chf Technique: Single frontal view of the chest was obtained Comparison: XY CHEST XRAY 1 VIEW on DOS: 08/06/24, XY CHEST PORTABLE on DOS: 06/10/24, XY CHEST XRAY 1 VIEW on DOS: 04/23/24, CHEST PORTABLE on DOS: 01/13/22, CXRP on DOS: 01/13/22 FINDINGS: Lines and Tubes: None Lungs: No focal consolidation. Pleura: No effusion. No pneumothorax. Cardiomediastinal contours: Unremarkable Bones: No acute osseous abnormality. IMPRESSION: No acute cardiopulmonary disease.
[2024-08-08 12:03] LABS: Eosinophils # (auto) 0 10 ^3/uL (0-0.8); Eosinophils % (auto) 0.1 % (0.0-7.0); Mean Corpuscular Hgb Conc. 33.9 g/dL (32.0-36.0); Monocytes # (auto) 1.2 10 ^3/uL (0-1.3); Nucleated Red Blood Cells % 0.1 %; Red Cell Distribution Width 14.5 % (11.8-14.3)
[2024-08-08] MEDS: FUROSEMIDE 20 MG/2 ML VIAL IV ONE (12:05)
[2024-08-08 12:06] LABS: Basophils # (auto) 0 10 ^3/uL (0-0.2); Basophils % (auto) 0.2 % (0.0-2.0); Hematocrit 35.3 % (41.0-53.0); Lymphocytes # (auto) 1.3 10 ^3/uL (0.4-5.4); Lymphocytes % (auto) 10.3 % (10.0-50.0); Mean Corpuscular Hemoglobin 34.2 pg (28.0-32.0); Monocytes % (auto) 9.6 % (0.0-12.0); Neutrophils # (auto) 9.8 10 ^3/uL (1.6-8.6); Neutrophils % (auto) 79.8 % (37.0-80.0); Platelet Count (auto) 179 10^3/uL (140-450); White Blood Cell 12.3 10^3/uL (4.4-10.8)
[2024-08-08 12:26] LABS: Alanine Aminotransferase 17 U/L (7-40); Alkaline Phosphatase 60 U/L (46-116); Anion Gap 8 (5-15); BUN/Creatinine Ratio 15.9 (10.0-20.0); Blood Urea Nitrogen 13 mg/dL (9-23); Calcium 9.5 mg/dL (8.7-10.4); Carbon Dioxide 30 mmol/L (20-31); Potassium 3.9 mmol/L (3.5-5.1)
[2024-08-08 12:27] LABS: Albumin 3.7 g/dL (3.2-4.8); Aspartate Aminotransferase 18 U/L (13-40); Bilirubin, Total 0.5 mg/dL (0.2-1.0)
[2024-08-08 12:35] LABS: Chloride 97 mmol/L (98-107); Glucose 107 mg/dL (74-106); Sodium 135 mmol/L (136-145); Total Protein 5.6 g/dL (5.7-8.2)
--- NOTE | 2024-08-08 15:59 | DVHSR ---
APPROVED REPORT EXAM: Two-dimensional and M-mode echocardiogram with Doppler and color Doppler. Blood Pressure: 135/66 mmHg INDICATION CHF RISK FACTORS Height: 68, Weight: 143 DIMENSIONS LVDd (3.8-5.7cm)LA (2D) (1.9-4.0cm)Aortic Root3.9 (2.0-3.7cm) LVDs (2.5-4.0cm)LA (MM) (1.9-4.0cm)Aortic Cusp Exc1.6 (1.5-2.0cm) EF (%) 64.0 (55-70%)Rt. Atrium (1.9-4.0cm)Asc. Aorta cm Mitral Valve MitralMitral Stenosis E wave0.68m/sMV Mean GR.mmHg A wave0.92m/sMV Peak GR.97mmHg E/A ratio0.72D MVAcm2 DECEL [id number] 1/2 Pyjs17bu IVRTmsDop MVA4.52cm2 Aortic Valve Aortic ValveAortic Stenosis V11.37m/Nella Mean GR.7mmHg V21.89m/Nella Peak GR.14mmHg LVOT Diameter1.8 (1.8-2.4cm)Doppler AVA1.84cm2 AI P 1/2 Gmls892.42ms Pulmonic Valve V21.03m/s Tricuspid Valve TR Velocity3.00m/s [id number] Conclusion Technically good study. Sinus rhythm. Concentric LVH with dilated aortic root. Dilated sinuses of Valsalva. Valves are normal. EF of 60% with normal RV function. Mild aortic insufficiency. Mild tricuspid regurgitation. No pericardial effusion masses or vegetations.
[2024-08-08] MEDS: MONTELUKAST SODIUM 10 MG TAB PO SCH (21:17)
[2024-08-09] VITALS (22 sets, daily range): BP systolic 91–152; BP diastolic 59–81; PULSE 62–103; RESP 18–24; TEMP 97.4–97.9; O2SAT 93–100
--- NOTE | 2024-08-09 04:09 | DVH ---
Examination: CXRP Clinical Indication: shortness of breath Comparison: None. Technique: Frontal radiograph of the chest was obtained. Findings: Limited evaluation as the patient is in rotation. Lungs are clear and well expanded with no pulmonary infiltrate or pleural effusion. There is no pneumothorax. No evidence of cardiomegaly. 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 Elevated left hemidiaphragm. No acute osseous abnormality is seen. Impression: 1. 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 2. Advised further evaluation with CT chest with contrast. Electronically Signed 08/09/2024 04:08 Amena Kaplan
[2024-08-09 04:33] LABS: Base Excess 2.8 mmol/L (-2.0-3.0)
--- NOTE | 2024-08-09 07:06 | DVH ---
EXAM: CT Angiography Chest With Intravenous Contrast CLINICAL INDICATION: ANEURYSM TECHNIQUE: Axial computed tomographic angiography images of the chest with intravenous contrast. Th is CT exam was performed using one or more of the following dose reduction techniques: automated exp osure control, adjustment of the mA and/or kV according to patient size, and/or use of iterative silas nstruction technique. MIP reconstructed images were created and reviewed. CONTRAST: COMPARISON: None FINDINGS: LIMITATIONS: Suboptimal opacification of the pulmonary arteries. PULMONARY ARTERIES: No pulmonary embolism is identified. Some of the distal pulmonary arteries can not be evaluated due to suboptimal opacification. AORTA: No acute findings. No thoracic aortic aneurysm. LUNGS AND PLEURAL SPACES: Mild lung emphysema. No mass. No consolidation. No significant effusio n. No pneumothorax. HEART: Unremarkable. No cardiomegaly. No significant pericardial effusion. No evidence of RV dys function. MEDIASTINUM: Scattered mediastinal lymph nodes some of which are upper limits of normal in size and are most likely reactive lymph nodes. 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 No ac apache fracture. No dislocation. SOFT TISSUES: Unremarkable. LYMPH NODES: See above. LIVER: Hepatic cysts. KIDNEYS AND URETERS: Partially visualized right renal cysts. OTHER FINDINGS: . . . IMPRESSION: 1. No pulmonary embolism is identified. Some of the distal pulmonary arteries cannot be evaluated d ue to suboptimal opacification. No aortic aneurysm or dissection. 2. Scattered mediastinal lymph nodes some of which are upper limits of normal in size and are most l ikely reactive lymph nodes. 3. Degenerative changes thoracic spine as described.
[2024-08-09 08:42] LABS: Anion Gap 8 (5-15); Calcium 9.2 mg/dL (8.7-10.4); Potassium 3.7 mmol/L (3.5-5.1)
[2024-08-09 08:47] LABS: Glucose 103 mg/dL (74-106)
[2024-08-09 08:48] LABS: BUN/Creatinine Ratio 17.1 (10.0-20.0); Blood Urea Nitrogen 14 mg/dL (9-23); Carbon Dioxide 32 mmol/L (20-31); Chloride 93 mmol/L (98-107); Sodium 133 mmol/L (136-145)
--- NOTE | 2024-08-09 10:26 | ECG ---
[facility] Test Date: 2024-08-06 Test Time: 16:35:18 Pat Name: JIMMIE [facility] Department: ER Room: 0249T A Gender: M Acid Splicer: JOSÉ LUIS : 1935 Requested By: KYRA ARRIAZA Order Number: [id number] Reading MD: Manan Otero Measurements Intervals [place] Rate: 91 P: 62 MO: 146 QRS: 41 QRSD: 80 T: -77 QT: 347 QTc: 427 Interpretive Statements Sinus rhythm Borderline repolarization abnormality Baseline wander in lead(s) I,III,aVL Electronically Signed On 08-10-2024 13:09:21 PST by Manan Otero Please click the below link to view image of tracing.
--- NOTE | 2024-08-09 11:56 | DVHPN2 ---
Progress Note Date Seen: Aug 09, 2024 Medical Necessity Reason Pt with a Central, PICC or Fol: No Subjective Patient reports: No new complaints Review of Systems: HEENT:Normal, CVS:Normal, RESPIRATORY:Normal, GI:Normal, :Normal, MSK:Normal, NEURO:Normal Objective vital signs Vital Sign Date Time Temp Pulse Resp B/P (MAP) Pulse Ox O2 Delivery O2 Flow Rate FiO2 08/09/24 11:50 62 20 96 08/09/24 11:44 Nasal Cannula* 4 36 08/09/24 09:00 97.7 152/75 (100) 97.7 Total Intake and Output 08/08/24 08/08/24 08/09/24 15:00 23:00 07:00 Intake Total 50 ml 250 ml 500 ml Output Total 1 ml Balance 50 ml 250 ml 499 ml medications Current Medications Medications Dose Ordered Sig/Marcello Route Start Time Stop Time Status Last Admin Dose Admin Methylprednisolone Sodium Succinate 40 mg BID IV 08/06/24 22:00 08/09/24 08:57 40 MG Aspirin 81 mg DAILY PO 08/07/24 10:00 08/09/24 08:56 81 MG Furosemide 20 mg DAILY PO 08/07/24 10:00 08/09/24 08:56 20 MG Tamsulosin HCl 0.4 mg QPM PO 08/07/24 18:00 08/08/24 17:47 0.4 MG Ondansetron HCl 4 mg Q4HP PRN IV 08/06/24 21:30 Enoxaparin Sodium 40 mg DAILY SC 08/07/24 10:00 08/09/24 08:57 40 MG Acetaminophen 650 mg Q6HP PRN PO 08/06/24 21:30 Guaifenesin/ Dextromethorphan 10 ml Q4HP PRN PO 08/06/24 22:15 08/09/24 09:14 10 ML Azithromycin 250 ml @ 125 mls/hr DAILY IV 08/07/24 10:00 08/08/24 13:08 125 MLS/HR Albuterol 2.5 mg Q4HP PRN NEB 08/07/24 12:00 08/09/24 00:48 2.5 MG Albuterol 2.5 mg Q6HWA NEB 08/07/24 12:00 08/09/24 11:44 2.5 MG Ipratropium [place] 0.5 mg Q6HWA NEB 08/07/24 12:00 08/09/24 11:44 0.5 MG Ceftriaxone Sodium 50 ml @ 100 mls/hr DAILY@09 IV 08/08/24 09:00 08/09/24 08:57 100 MLS/HR Montelukast Sodium 10 mg HS PO 08/08/24 22:00 08/08/24 21:17 10 MG Examination: GENERAL:Normal, HEENT:Normal, NECK:Normal, LUNGS:Normal, LUNGS:Abnormal (on oxygen, bipap), CVS:Normal, ABDOMEN:Normal, MSK:Normal, SKIN:Normal, NEURO:Normal, :Normal laboratory and microbiology Laboratory Tests 08/09/24 07:25 08/08/24 11:26 Test 08/09/24 07:25 Range/Units Serum Glucose 103 74-106 mg/dL Problem List/Assessment/Plan Problem List/Assessment/Plan #1 copd with exacerbation: steroids, bronchodilators #2 ?pneumonia- gram positive/neg:iv antibiotics #3 acute on chronic diastolic heart failure: lasix iv, xray #4 bph #5 h/o prostate cancer: griffin #6 acute resp failure: on oxygen/bipap unstable for transfer advance care planning- full code- time spent 19 mins long dw daughter Frances Plan discussed with: Patient, Daughter Date of Service: Aug 09, 2024 Billing Provider: MONICA DODGE MD Common Visit Codes: [id number] INP/OBS CARE(HIGH) MONICA DODGE MD Aug 09, 2024 11:56
[2024-08-09] MEDS: Ensure HIGH Protein Chocolate 8oz Bottle PO SCH (12:00)
[2024-08-09] MEDS: amLODIPine BESYLATE 5 MG TAB PO ONE (12:35)
[2024-08-09] MEDS: FUROSEMIDE 20 MG/2 ML VIAL IV ONE (12:35)
[2024-08-09] MEDS: ALPRAZolam 0.25 MG TAB PO PRN (12:36)
[2024-08-09] MEDS: methylPREDNISolone SOD SUCC 40 MG/ML VL IV SCH (21:10)
[2024-08-10] VITALS (18 sets, daily range): BP systolic 112–153; BP diastolic 66–81; PULSE 70–102; RESP 16–26; TEMP 97.3–98.3; O2SAT 92–100
--- NOTE | 2024-08-10 05:48 | DVH ---
CHEST RADIOGRAPH Indication: chf Technique: Single frontal view of the chest was obtained COMPARISON: XY CHEST PORTABLE on DOS: 08/09/24, XY CHEST XRAY 1 VIEW on DOS: 08/08/24, XY CHEST XRAY 1 VIEW on DOS: 08/06/24, XY CHEST PORTABLE on DOS: 06/10/24, XY CHEST XRAY 1 VIEW on DOS: 04/23/24 FINDINGS: Lines and Tubes: None Lungs: Mild congestion Pleura: No effusion. No pneumothorax. Cardiomediastinal contours: Unremarkable Bones: Unremarkable IMPRESSION: Mild congestion, slightly improved.
[2024-08-10 07:24] LABS: Basophils # (auto) 0 10 ^3/uL (0-0.2); Basophils % (auto) 0.1 % (0.0-2.0); Eosinophils # (auto) 0 10 ^3/uL (0-0.8); Hemoglobin 12.6 g/dL (13.5-17.5); Neutrophils # (auto) 7.6 10 ^3/uL (1.6-8.6); Platelet Count (auto) 163 10^3/uL (140-450)
[2024-08-10 07:28] LABS: Hematocrit 36.5 % (41.0-53.0); Lymphocytes # (auto) 0.7 10 ^3/uL (0.4-5.4); Lymphocytes % (auto) 7.6 % (10.0-50.0); Mean Corpuscular Hemoglobin 34.7 pg (28.0-32.0); Mean Corpuscular Hgb Conc. 34.4 g/dL (32.0-36.0); Mean Corpuscular Volume 100.8 fL (80.0-100.0); Monocytes % (auto) 10.9 % (0.0-12.0); Neutrophils % (auto) 81.4 % (37.0-80.0); Red Blood Cells 3.62 10^6/uL (4.5-5.90); Red Cell Distribution Width 14.3 % (11.8-14.3); White Blood Cell 9.3 10^3/uL (4.4-10.8)
[2024-08-10 07:34] LABS: Alanine Aminotransferase 21 U/L (7-40); Albumin 3.7 g/dL (3.2-4.8); Alkaline Phosphatase 61 U/L (46-116); Anion Gap 8 (5-15); Aspartate Aminotransferase 21 U/L (13-40); BUN/Creatinine Ratio 22.7 (10.0-20.0); Blood Urea Nitrogen 17 mg/dL (9-23); Calcium 9.4 mg/dL (8.7-10.4); Potassium 3.9 mmol/L (3.5-5.1)
[2024-08-10 07:35] LABS: Bilirubin, Total 0.6 mg/dL (0.2-1.0); Carbon Dioxide 33 mmol/L (20-31); Chloride 93 mmol/L (98-107); Glucose 109 mg/dL (74-106); Sodium 134 mmol/L (136-145); Total Protein 5.7 g/dL (5.7-8.2)
[2024-08-10] MEDS: FUROSEMIDE 20 MG/2 ML VIAL IV SCH (08:28)
[2024-08-10] MEDS: amLODIPine BESYLATE 5 MG TAB PO SCH (08:29)
--- NOTE | 2024-08-10 17:26 | DVHPN2 ---
Subjective Patient continues to report shortness of breath. Reviewed: Care Plan, H&P, Labs, Medications, Previous Orders Changes from previous H/P or p: No Changes General: Per HPI Objective Vitals Vital Signs Date Time Temp Pulse Resp B/P (MAP) Pulse Ox O2 Delivery O2 Flow Rate FiO2 08/10/24 13:48 72 20 08/10/24 13:42 97 08/10/24 10:00 Nasal Cannula 4.0 08/10/24 10:00 36 08/10/24 09:00 97.9 146/77 (100) 97.9 Intake/Output Intake and Output 08/10/24 07:00 Intake Total 1260 ml Output Total 1100 ml Balance 160 ml Intake Oral 810 ml IV Total 450 ml Output Urine Total 1100 ml # Voids 3 General Appearance: Alert, Oriented X3, Cooperative, No acute distress HEENT: Atraumatic, PERRLA Neck: Carotid Bruits [place] Lungs: Clear to auscultation, Normal air movement Cardiovascular: Normal S1, Normal S2 Abdomen: Normal bowel sounds Genitourinary: No Apparent Abnormalities Musculoskeletal: Normal sensory function, Normal motor function Skin: Dry, Intact Psych/Mental Status: Mental status NL, Mood NL Medications Current Medications Medications Dose Ordered Sig/Marcello Route Start Time Stop Time Status Last Admin Dose Admin Aspirin 81 mg DAILY PO 08/07/24 10:00 08/10/24 08:29 81 MG Tamsulosin HCl 0.4 mg QPM PO 08/07/24 18:00 08/09/24 17:31 0.4 MG Ondansetron HCl 4 mg Q4HP PRN IV 08/06/24 21:30 Enoxaparin Sodium 40 mg DAILY SC 08/07/24 10:00 08/10/24 08:28 40 MG Acetaminophen 650 mg Q6HP PRN PO 08/06/24 21:30 Guaifenesin/ Dextromethorphan 10 ml Q4HP PRN PO 08/06/24 22:15 08/10/24 13:58 10 ML Azithromycin 250 ml @ 125 mls/hr DAILY IV 08/07/24 10:00 08/10/24 10:52 125 MLS/HR Albuterol 2.5 mg Q4HP PRN NEB 08/07/24 12:00 08/09/24 00:48 2.5 MG Albuterol 2.5 mg Q6HWA NEB 08/07/24 12:00 08/10/24 13:42 2.5 MG Ipratropium [place] 0.5 mg Q6HWA NEB 08/07/24 12:00 08/10/24 13:43 0.5 MG Ceftriaxone Sodium 50 ml @ 100 mls/hr DAILY@09 IV 08/08/24 09:00 08/10/24 08:25 100 MLS/HR Montelukast Sodium 10 mg HS PO 08/08/24 22:00 08/09/24 21:11 10 MG Methylprednisolone Sodium Succinate 20 mg BID IV 08/09/24 22:00 08/10/24 08:26 20 MG Furosemide 20 mg DAILY IV 08/10/24 10:00 08/10/24 08:28 20 MG Alprazolam 0.25 mg Q12HP PRN PO 08/09/24 12:00 08/09/24 12:36 0.25 MG Amlodipine Besylate 5 mg DAILY PO 08/10/24 10:00 08/10/24 08:29 5 MG Hydralazine HCl 10 mg Q6HP PRN IV 08/09/24 12:00 Enteral Nutritional Formula 240 ml TIDWM PO 08/09/24 12:00 08/10/24 12:00 240 ML Laboratory Results Laboratory Tests 08/10/24 06:28 Chemistry Test 08/10/24 06:28 Albumin 3.7 g/dL (3.2-4.8) Calcium Level 9.4 mg/dL (8.7-10.4) Total Protein 5.7 g/dL (5.7-8.2) LFT Test 08/10/24 06:28 Alanine Aminotransferase (ALT) 21 U/L (7-40) Alkaline Phosphatase 61 U/L (46-116) Aspartate Amino Transferase (AST) 21 U/L (13-40) Total Bilirubin 0.6 mg/dL (0.2-1.0) Urinalysis Test 08/07/24 20:44 Urine Color Light-yellow (Yellow) Urine Clarity Clear (Clear) Urine pH 6.5 (5.0-9.0) Urine Specific [place] 1.007 (1.001-1.035) Urine Protein Negative (Negative) Urine Ketones Negative (Negative) Urine Blood Negative /uL (Negative) Urine Nitrite Negative (Negative) Urine Bilirubin Negative (Negative) Urine Urobilinogen Normal mg/dL (Negative) Urine Leukocyte Esterase Negative /uL (Negative) Urine RBC 1 /hpf (0 - 3) Urine Microscopic WBC < 1 /HPF (0-3) Urine Squamous Epithelial Cells Few /hpf (<5) Urine Bacteria None seen /hpf (None Seen) Urine Glucose Normal mg/dL (Normal) Labs and/or images reviewed: Labs reviewed by me, Image(s) reviewed by me Assessment/Plan Assessment/Plan Impression: -acute on chronic hypoxic respiratory failure -COPD with exacerbation -history of prostate cancer -acute on chronic diastolic heart failure -BPH Plan: -continue antibiotic therapy -continue IV diuresis -continue steroids, bronchodilators -continue O2 supplementation with oxygen and BiPAP as needed -physical therapy -given patient's acute dyspneic exacerbation today, patient unstable to transfer to [facility]. -repeat labs and chest x-ray in a.m. Total time spent with patient discussing and formulating plan of care: 35 minutes. This medical document was created using an electronic medical record system with [employer] dictation system. Although this document has been carefully reviewed, there may still be some phonetic and typographical errors. These areas are purely typographical due to imperfections of the software programs, and do not reflect any compromise in the patient's medical care. Plan discussed with: Patient, Other (RN) Date of Service: Aug 10, 2024 Billing Provider: ORTEGA BUITRAGO NP Common Visit Codes: [id number] INP/OBS CARE(HIGH) ORTEGA BUITRAGO NP Aug 10, 2024 17:26
[2024-08-11] VITALS (16 sets, daily range): BP systolic 110–153; BP diastolic 57–83; PULSE 60–101; RESP 18–24; TEMP 97.5–98.3; O2SAT 92–100
--- NOTE | 2024-08-11 05:58 | DVH ---
EXAM: XY CHEST PORTABLE Indication: resp. failure Technique: Single frontal view of the chest was obtained Comparison: XY CHEST PORTABLE on DOS: 08/10/24, XY CHEST PORTABLE on DOS: 08/09/24, XY CHEST XRAY 1 VIE W on DOS: 08/08/24, XY CHEST XRAY 1 VIEW on DOS: 08/06/24, XY CHEST PORTABLE on DOS: 06/10/24 FINDINGS: Lines and Tubes: None Lungs: No focal consolidation. Elevation of the left hemidiaphragm. Pleura: No effusion. No pneumothorax. Cardiomediastinal contours: Unremarkable Bones: No acute osseous abnormality. IMPRESSION: No acute cardiopulmonary disease.
[2024-08-11] MEDS: hydrALAZINE HCL 20 MG/ML VL IV PRN (06:15)
[2024-08-11 07:36] LABS: Anion Gap 9 (5-15)
[2024-08-11 07:37] LABS: Calcium 9.7 mg/dL (8.7-10.4)
[2024-08-11 07:41] LABS: Carbon Dioxide 32 mmol/L (20-31); Chloride 94 mmol/L (98-107); Sodium 135 mmol/L (136-145)
[2024-08-11 07:42] LABS: Glucose 118 mg/dL (74-106)
[2024-08-11 08:41] LABS: Blood Urea Nitrogen 18 mg/dL (9-23)
[2024-08-11] MEDS: MAGNESIUM SULFATE 1GM/100ML 100 ML IV ONE (15:30)
[2024-08-11] MEDS: methylPREDNISolone SOD SUCC 125 MG/2 ML VL IV ONE (15:42)
--- NOTE | 2024-08-11 16:14 | DVHPN2 ---
Subjective Patient with worsening shortness of breath and wheezing. Reviewed: Care Plan, H&P, Labs, Medications, Previous Orders Changes from previous H/P or p: No Changes General: Per HPI Objective Vitals Vital Signs Date Time Temp Pulse Resp B/P (MAP) Pulse Ox O2 Delivery O2 Flow Rate FiO2 08/11/24 14:54 97 Nasal Cannula* 2 08/11/24 14:54 84 20 08/11/24 12:40 97.7 110/57 (74) 97.7 Intake/Output Intake and Output 08/11/24 07:00 Intake Total 1500 ml Output Total 1500 ml Balance 0 ml Intake Oral 1200 ml IV Total 300 ml Output Urine Total 1500 ml # Voids 2 # Bowel Movements 1 General Appearance: Alert, Oriented X3, Cooperative, No acute distress HEENT: Atraumatic, PERRLA Neck: Carotid [place]its [place] Lungs: Other (Severe inspiratory and expiratory wheezing) Cardiovascular: Normal S1, Normal S2 Abdomen: Normal bowel sounds Genitourinary: No Apparent Abnormalities Musculoskeletal: Normal sensory function, Normal motor function Skin: Dry, Intact Psych/Mental Status: Mental status NL, Mood NL Medications Current Medications Medications Dose Ordered Sig/Marcello Route Start Time Stop Time Status Last Admin Dose Admin Aspirin 81 mg DAILY PO 08/07/24 10:00 08/11/24 09:12 81 MG Tamsulosin HCl 0.4 mg QPM PO 08/07/24 18:00 08/10/24 17:23 0.4 MG Ondansetron HCl 4 mg Q4HP PRN IV 08/06/24 21:30 Enoxaparin Sodium 40 mg DAILY SC 08/07/24 10:00 08/11/24 09:12 40 MG Acetaminophen 650 mg Q6HP PRN PO 08/06/24 21:30 Guaifenesin/ Dextromethorphan 10 ml Q4HP PRN PO 08/06/24 22:15 08/10/24 13:58 10 ML Azithromycin 250 ml @ 125 mls/hr DAILY IV 08/07/24 10:00 08/11/24 10:00 125 MLS/HR Albuterol 2.5 mg Q4HP PRN NEB 08/07/24 12:00 08/11/24 14:54 2.5 MG Albuterol 2.5 mg Q6HWA NEB 08/07/24 12:00 08/11/24 11:16 2.5 MG Ipratropium [place] 0.5 mg Q6HWA NEB 08/07/24 12:00 08/11/24 11:16 0.5 MG Ceftriaxone Sodium 50 ml @ 100 mls/hr DAILY@09 IV 08/08/24 09:00 08/11/24 09:11 100 MLS/HR Montelukast Sodium 10 mg HS PO 08/08/24 22:00 08/10/24 21:05 10 MG Methylprednisolone Sodium Succinate 20 mg BID IV 08/09/24 22:00 08/11/24 09:11 20 MG Furosemide 20 mg DAILY IV 08/10/24 10:00 08/11/24 09:11 20 MG Alprazolam 0.25 mg Q12HP PRN PO 08/09/24 12:00 08/09/24 12:36 0.25 MG Amlodipine Besylate 5 mg DAILY PO 08/10/24 10:00 08/11/24 09:12 5 MG Hydralazine HCl 10 mg Q6HP PRN IV 08/09/24 12:00 08/11/24 06:15 10 MG Enteral Nutritional Formula 240 ml TIDWM PO 08/09/24 12:00 08/11/24 12:00 240 ML Budesonide 0.5 mg BID NEB 08/11/24 22:00 Laboratory Results Laboratory Tests 08/10/24 06:28 08/11/24 06:37 Chemistry Test 08/11/24 06:37 Calcium Level 9.7 mg/dL (8.7-10.4) Urinalysis Test 08/07/24 20:44 Urine Color Light-yellow (Yellow) Urine Clarity Clear (Clear) Urine pH 6.5 (5.0-9.0) Urine Specific [place] 1.007 (1.001-1.035) Urine Protein Negative (Negative) Urine Ketones Negative (Negative) Urine Blood Negative /uL (Negative) Urine Nitrite Negative (Negative) Urine Bilirubin Negative (Negative) Urine Urobilinogen Normal mg/dL (Negative) Urine Leukocyte Esterase Negative /uL (Negative) Urine RBC 1 /hpf (0 - 3) Urine Microscopic WBC < 1 /HPF (0-3) Urine Squamous Epithelial Cells Few /hpf (<5) Urine Bacteria None seen /hpf (None Seen) Urine Glucose Normal mg/dL (Normal) Labs and/or images reviewed: Labs reviewed by me, Image(s) reviewed by me Assessment/Plan Assessment/Plan Impression: -acute on chronic hypoxic respiratory failure -COPD with exacerbation -history of prostate cancer -acute on chronic diastolic heart failure -BPH Plan: Events: Patient with worsening inspiratory and expiratory wheezing with tachypnea. Give a pulse dose of Solu-Medrol 80 mg IV x1. Magnesium IV 1 g also provided. -continue antibiotic therapy -continue IV diuresis -add Pulmicort 0.5 mg b.i.d.. , continue DEBBI q.6 hours -continue O2 supplementation with oxygen and BiPAP as needed -physical therapy -patient continues to be unstable for transfer to [facility] and given acute respiratory failure with severe COPD exacerbation. -repeat labs and chest x-ray in a.m. Total time spent with patient discussing and formulating plan of care: 35 minutes. This medical document was created using an electronic medical record system with [employer] dictation system. Although this document has been carefully reviewed, there may still be some phonetic and typographical errors. These areas are purely typographical due to imperfections of the software programs, and do not reflect any compromise in the patient's medical care. Plan discussed with: Patient, Daughter, Other (RN) My Orders Orders - ORTEGA BUITRAGO NP Procedure Category Date Status Time Chest Portable XY 08/11/24 Resulted 04:00 Budesonide PHA 08/11/24 In Process (Inhalation) 22:00 Magnesium Sulfate PHA 08/11/24 In Process 1gm/100ml 15:30 Date of Service: Aug 11, 2024 Billing Provider: ORTEGA BUITRAGO NP Common Visit Codes: [id number] INP/OBS CARE(HIGH) ORTEGA BUITRAGO NP Aug 11, 2024 16:14
[2024-08-11] MEDS: BUDESONIDE (INHALATION) 0.5 MG/2 ML NEB NEB SCH (19:36)
[2024-08-12] VITALS (20 sets, daily range): BP systolic 122–148; BP diastolic 58–75; PULSE 65–104; RESP 18–24; TEMP 97.6–98.2; O2SAT 94–100
[2024-08-12] MEDS: ALBUTEROL SULF 2.5 MG/0.5ML(0.5%) NEB SOLN NEB ONE ×2 (06:29→09:34)
[2024-08-12] MEDS: methylPREDNISolone SOD SUCC 125 MG/2 ML VL IV ONE (09:56)
--- NOTE | 2024-08-12 16:40 | DVHPN2 ---
Subjective Continues to have shortness of breath and inspiratory expiratory wheezing. Reviewed: Care Plan, H&P, Labs, Medications, Previous Orders Changes from previous H/P or p: Changes General: Per HPI Objective Vitals Vital Signs Date Time Temp Pulse Resp B/P (MAP) Pulse Ox O2 Delivery O2 Flow Rate FiO2 08/12/24 16:16 97.6 95 20 128/63 (84) 95 97.6 08/12/24 13:53 Nasal Cannula 5.0 08/12/24 13:53 40 Intake/Output Intake and Output 08/12/24 07:00 Intake Total 1852 ml Output Total 1600 ml Balance 252 ml Intake Oral 1552 ml IV Total 300 ml Output Urine Total 1600 ml # Bowel Movements 1 General Appearance: Alert, Oriented X3, Cooperative, No acute distress HEENT: Atraumatic, PERRLA Neck: Carotid [place] Lungs: Other (Severe inspiratory and expiratory wheezing) Cardiovascular: Normal S1, Normal S2 Abdomen: Normal bowel sounds Genitourinary: No Apparent Abnormalities Musculoskeletal: Normal sensory function, Normal motor function Skin: Dry, Intact Psych/Mental Status: Mental status NL, Mood NL Medications Current Medications Medications Dose Ordered Sig/Marcello Route Start Time Stop Time Status Last Admin Dose Admin Aspirin 81 mg DAILY PO 08/07/24 10:00 08/12/24 08:29 81 MG Tamsulosin HCl 0.4 mg QPM PO 08/07/24 18:00 08/11/24 18:28 0.4 MG Ondansetron HCl 4 mg Q4HP PRN IV 08/06/24 21:30 Enoxaparin Sodium 40 mg DAILY SC 08/07/24 10:00 08/12/24 08:55 40 MG Acetaminophen 650 mg Q6HP PRN PO 08/06/24 21:30 Guaifenesin/ Dextromethorphan 10 ml Q4HP PRN PO 08/06/24 22:15 08/10/24 13:58 10 ML Azithromycin 250 ml @ 125 mls/hr DAILY IV 08/07/24 10:00 08/12/24 10:08 125 MLS/HR Albuterol 2.5 mg Q4HP PRN NEB 08/07/24 12:00 08/11/24 14:54 2.5 MG Albuterol 2.5 mg Q6HWA NEB 08/07/24 12:00 08/12/24 13:53 2.5 MG Ipratropium [place] 0.5 mg Q6HWA NEB 08/07/24 12:00 08/12/24 13:53 0.5 MG Ceftriaxone Sodium 50 ml @ 100 mls/hr DAILY@09 IV 08/08/24 09:00 08/12/24 08:50 100 MLS/HR Montelukast Sodium 10 mg HS PO 08/08/24 22:00 08/11/24 21:07 10 MG Methylprednisolone Sodium Succinate 20 mg BID IV 08/09/24 22:00 08/12/24 08:32 20 MG Furosemide 20 mg DAILY IV 08/10/24 10:00 08/12/24 08:33 20 MG Alprazolam 0.25 mg Q12HP PRN PO 08/09/24 12:00 08/09/24 12:36 0.25 MG Amlodipine Besylate 5 mg DAILY PO 08/10/24 10:00 08/12/24 08:31 5 MG Hydralazine HCl 10 mg Q6HP PRN IV 08/09/24 12:00 08/11/24 06:15 10 MG Enteral Nutritional Formula 240 ml TIDWM PO 08/09/24 12:00 08/12/24 12:00 240 ML Budesonide 0.5 mg BID NEB 08/11/24 22:00 08/12/24 06:44 0.5 MG Laboratory Results Laboratory Tests 08/10/24 06:28 08/11/24 06:37 Urinalysis Test 08/07/24 20:44 Urine Color Light-yellow (Yellow) Urine Clarity Clear (Clear) Urine pH 6.5 (5.0-9.0) Urine Specific [place] 1.007 (1.001-1.035) Urine Protein Negative (Negative) Urine Ketones Negative (Negative) Urine Blood Negative /uL (Negative) Urine Nitrite Negative (Negative) Urine Bilirubin Negative (Negative) Urine Urobilinogen Normal mg/dL (Negative) Urine Leukocyte Esterase Negative /uL (Negative) Urine RBC 1 /hpf (0 - 3) Urine Microscopic WBC < 1 /HPF (0-3) Urine Squamous Epithelial Cells Few /hpf (<5) Urine Bacteria None seen /hpf (None Seen) Urine Glucose Normal mg/dL (Normal) Labs and/or images reviewed: Labs reviewed by me, Image(s) reviewed by me Assessment/Plan Assessment/Plan Impression: -acute on chronic hypoxic respiratory failure -COPD with exacerbation -history of prostate cancer -acute on chronic diastolic heart failure -BPH Plan: Events: Patient had improvement with respiratory distress yesterday afternoon after acute interventions including pulse dose of Solu-Medrol and increased albuterol treatment as well as IV magnesium. Reassessed the patient was this morning and had reoccurrence of inspiratory and expiratory wheezing. Now on increased FiO2 requirements. Re-evaluation of medications-patient may be having withdrawal or relapse of COPD exacerbation as steroids has been tapered. Increase Solu-Medrol back to 40 mg IV b.i.d.. Will discuss case with primary hospitalist. -continue antibiotic therapy -continue IV diuresis -add Pulmicort 0.5 mg b.i.d.. , continue DEBBI q.6 hours -continue O2 supplementation with oxygen and BiPAP as needed -physical therapy -patient continues to be unstable for transfer to [facility] and given acute respiratory failure with severe COPD exacerbation. -repeat labs and chest x-ray in a.m. Total time spent with patient discussing and formulating plan of care: 35 minutes. This medical document was created using an electronic medical record system with [employer] dictation system. Although this document has been carefully reviewed, there may still be some phonetic and typographical errors. These areas are purely typographical due to imperfections of the software programs, and do not reflect any compromise in the patient's medical care. Plan discussed with: Patient, Other (RN) My Orders Orders - ORTEGA BUITRAGO NP Procedure Category Date Status Time * Cuff Turner Machine Operator CONS 08/12/24 Transmitted Consult Methylprednisolone PHA 08/12/24 Transmitted Sod Succ (Solu Medrol 22:00 Erythrocyte LAB 08/12/24 Transmitted Sedimentation Rate 16:34 C-Reactive Protein LAB 08/12/24 Transmitted 16:34 Date of Service: Aug 12, 2024 Billing Provider: ORTEGA BUITRAGO NP Common Visit Codes: [id number] INP/OBS CARE(HIGH) ORTEGA BUITRAGO NP Aug 12, 2024 16:40
[2024-08-12 18:49] LABS: Erythrocyte Sedimentation Rate 10 mm/hr (0-20)
[2024-08-12] MEDS: methylPREDNISolone SOD SUCC 40 MG/ML VL IV SCH (22:21)
[2024-08-13] VITALS (15 sets, daily range): BP systolic 113–141; BP diastolic 67–98; PULSE 66–92; RESP 16–22; TEMP 97.6–98.1; O2SAT 92–100
--- NOTE | 2024-08-13 11:28 | DVHDS ---
DATE OF DISCHARGE: 08/13/2024 TRANSFER SUMMARY DATE OF TRANSFER: 08/13/2024. HISTORY OF PRESENT ILLNESS: The patient is an 89-year-old gentleman who was admitted with history of increasing shortness of breath and phlegm and has history of hypertension, previous prostate cancer and asthma. HOSPITAL COURSE: The patient had a chest x-ray that showed evidence of pulmonary venous congestion. The patient was placed on intravenous diuresis. The patient had an echocardiogram done that showed ejection fraction of 60%. The patient had a CT angiography that showed no pulmonary embolism, but showed scattered mediastinal lymph nodes. The patient is now improving the symptoms and will be transferred to [place] for further management. FINAL DIAGNOSES: Therefore, * Acute on chronic diastolic heart failure. * Chronic obstructive pulmonary disease exacerbation. * Questionable pneumonia, gram-positive, gram-negative. * Benign prostatic hypertrophy. * Acute respiratory failure. * History of prostate cancer. Time spent in discharge planning and review of plan with the patient, nursing and paperwork was 39 minutes. MD JACQUELINE Packer/REAGAN TID: [id number] RECEIPT: [id number]
[2024-08-14] VITALS (17 sets, daily range): BP systolic 112–145; BP diastolic 60–72; PULSE 71–100; RESP 14–20; TEMP 97.5–98.6; O2SAT 94–100
--- NOTE | 2024-08-14 06:40 | DVH ---
EXAM: XR Cervical Spine, 6 or More Views CLINICAL INDICATION: chf TECHNIQUE: Frontal, lateral, oblique and flexion/extension views of the cervical spine. COMPARISON: XY CHEST PORTABLE on DOS: 08/11/24, XY CHEST PORTABLE on DOS: 08/10/24, XY CHEST PORTABLE on DOS: 08/09/24, XY CHEST XRAY 1 VIEW on DOS: 08/08/24, XY CHEST XRAY 1 VIEW on DOS: 08/06/24 FINDINGS: VERTEBRAE: Unremarkable. No acute fracture. Normal alignment. No instability. DISC SPACES: No acute findings. No significant narrowing. SOFT TISSUES: Unremarkable. LUNG APICES: Mild pulmonary congestion. Left basilar. OTHER FINDINGS: . . . .. IMPRESSION: Mild pulmonary congestion.
[2024-08-14] MEDS: IOHEXOL 350 MG/ML 100ML IJ ONE (07:44)
[2024-08-14 07:45] LABS: Alanine Aminotransferase 21 U/L (7-40); Albumin 3.3 g/dL (3.2-4.8); Alkaline Phosphatase 50 U/L (46-116); Anion Gap 6 (5-15); Aspartate Aminotransferase 19 U/L (13-40); BUN/Creatinine Ratio 28.4 (10.0-20.0); Blood Urea Nitrogen 19 mg/dL (9-23); Calcium 9.1 mg/dL (8.7-10.4); Carbon Dioxide 31 mmol/L (20-31); Glucose 93 mg/dL (74-106); Potassium 4.1 mmol/L (3.5-5.1)
[2024-08-14 07:46] LABS: Bilirubin, Total 0.9 mg/dL (0.2-1.0)
[2024-08-14 07:50] LABS: Chloride 95 mmol/L (98-107); Sodium 132 mmol/L (136-145); Total Protein 5.3 g/dL (5.7-8.2)
[2024-08-14 07:56] LABS: Basophils # (auto) 0 10 ^3/uL (0-0.2); Eosinophils # (auto) 0 10 ^3/uL (0-0.8); Hemoglobin 12.6 g/dL (13.5-17.5); Lymphocytes # (auto) 1.5 10 ^3/uL (0.4-5.4); Mean Corpuscular Volume 98.9 fL (80.0-100.0); White Blood Cell 9.5 10^3/uL (4.4-10.8)
[2024-08-14 07:58] LABS: Basophils % (auto) 0.4 % (0.0-2.0); Eosinophils % (auto) 0.2 % (0.0-7.0); Hematocrit 36.3 % (41.0-53.0); Lymphocytes % (auto) 16.1 % (10.0-50.0); Mean Corpuscular Hemoglobin 34.2 pg (28.0-32.0); Mean Corpuscular Hgb Conc. 34.6 g/dL (32.0-36.0); Monocytes % (auto) 10.9 % (0.0-12.0); Neutrophils # (auto) 6.9 10 ^3/uL (1.6-8.6); Neutrophils % (auto) 72.4 % (37.0-80.0); Nucleated Red Blood Cells % 0.1 %; Platelet Count (auto) 144 10^3/uL (140-450); Red Blood Cells 3.67 10^6/uL (4.5-5.90); Red Cell Distribution Width 14.2 % (11.8-14.3)
[2024-08-14] MEDS: AZITHROMYCIN 250 MG TAB PO SCH (10:04)
[2024-08-14] MEDS: predniSONE 20 MG TAB PO SCH (10:04)
--- NOTE | 2024-08-14 11:05 | DVHPN2 ---
Progress Note Date Seen: Aug 14, 2024 Medical Necessity Reason Pt with a Central, PICC or Fol: Yes The following are medically ne: Griffin Catheter Reason for griffin catheter: Strict I&O Subjective Patient reports: No new complaints Review of Systems: HEENT:Normal, CVS:Normal, RESPIRATORY:Normal, GI:Normal, :Normal, MSK:Normal, NEURO:Normal Objective vital signs Vital Sign Date Time Temp Pulse Resp B/P (MAP) Pulse Ox O2 Delivery O2 Flow Rate FiO2 08/14/24 10:05 145/72 08/14/24 09:00 97.5 79 17 94 97.5 08/14/24 06:41 Nasal Cannula* 2 28 Total Intake and Output 08/13/24 08/13/24 08/14/24 15:00 23:00 07:00 Intake Total 675 ml 450 ml Output Total 900 ml 1100 ml Balance -225 ml -650 ml medications Current Medications Medications Dose Ordered Sig/Marcello Route Start Time Stop Time Status Last Admin Dose Admin Aspirin 81 mg DAILY PO 08/07/24 10:00 08/14/24 10:47 81 MG Tamsulosin HCl 0.4 mg QPM PO 08/07/24 18:00 08/13/24 18:21 0.4 MG Ondansetron HCl 4 mg Q4HP PRN IV 08/06/24 21:30 Enoxaparin Sodium 40 mg DAILY SC 08/07/24 10:00 08/14/24 10:05 40 MG Acetaminophen 650 mg Q6HP PRN PO 08/06/24 21:30 Guaifenesin/ Dextromethorphan 10 ml Q4HP PRN PO 08/06/24 22:15 08/10/24 13:58 10 ML Albuterol 2.5 mg Q4HP PRN NEB 08/07/24 12:00 08/11/24 14:54 2.5 MG Albuterol 2.5 mg Q6HWA NEB 08/07/24 12:00 08/14/24 06:39 2.5 MG Ipratropium [place] 0.5 mg Q6HWA NEB 08/07/24 12:00 08/14/24 06:00 0.5 MG Ceftriaxone Sodium 50 ml @ 100 mls/hr DAILY@09 IV 08/08/24 09:00 08/14/24 10:03 100 MLS/HR Montelukast Sodium 10 mg HS PO 08/08/24 22:00 08/13/24 21:30 10 MG Furosemide 20 mg DAILY IV 08/10/24 10:00 08/14/24 10:05 20 MG Alprazolam 0.25 mg Q12HP PRN PO 08/09/24 12:00 08/09/24 12:36 0.25 MG Hydralazine HCl 10 mg Q6HP PRN IV 08/09/24 12:00 08/11/24 06:15 10 MG Enteral Nutritional Formula 240 ml TIDWM PO 08/09/24 12:00 08/14/24 10:06 240 ML Budesonide 0.5 mg BID NEB 08/11/24 22:00 08/14/24 06:38 0.5 MG Azithromycin 500 mg DAILY PO 08/14/24 10:00 08/14/24 10:04 500 MG Amlodipine Besylate 10 mg DAILY PO 08/15/24 10:00 UNV Methylprednisolone Sodium Succinate 40 mg BID IV 08/14/24 22:00 UNV Examination: GENERAL:Normal, HEENT:Normal, NECK:Normal, LUNGS:Normal, LUNGS:Abnormal (ON OXYGEN, WHEEZING), CVS:Normal, ABDOMEN:Normal, MSK:Normal, SKIN:Normal, NEURO:Normal, :Normal laboratory and microbiology Laboratory Tests 08/14/24 06:54 Test 08/14/24 06:54 Range/Units Serum Glucose 93 74-106 mg/dL Problem List/Assessment/Plan Problem List/Assessment/Plan #1 copd with exacerbation: steroids, bronchodilators #2 ?pneumonia- gram positive/neg:iv antibiotics #3 acute on chronic diastolic heart failure: lasix iv, xray #4 bph #5 h/o prostate cancer: griffin #6 acute resp failure: on oxygen/bipap unstable for transfer advance care planning- full code- time spent 19 mins long dw daughter Frances Plan discussed with: Patient, Daughter My Orders My Orders Orders - MONICA DODGE MD Procedure Category Date Status Time Discharge DISCHARGE 08/13/24 Transmitted 11:13 Azithromycin Tablet PHA 08/14/24 In Process (Zithromax Tablet) 10:00 Chest Portable XY 08/14/24 Resulted 06:00 * [employer] Profiler CONS 08/13/24 Transmitted Consult Amlodipine Tablet PHA 08/15/24 Logged (Norvasc Tablet) 10:00 Methylprednisolone PHA 08/14/24 Logged Sod Succ (Solu Medrol 11:00 Methylprednisolone PHA 08/14/24 Logged Sod Succ (Solu Medrol 22:00 Amlodipine Tablet PHA 08/14/24 Logged (Norvasc Tablet) 11:00 Basic Metabolic Panel LAB 08/15/24 Verified 06:00 Date of Service: Aug 14, 2024 Billing Provider: MONICA DODGE MD Common Visit Codes: [id number] INP/OBS CARE(HIGH) MONICA DODGE MD Aug 14, 2024 11:05
[2024-08-14] MEDS: methylPREDNISolone SOD SUCC 40 MG/ML VL IV ONE (11:30)
[2024-08-14] MEDS: amLODIPine BESYLATE 5 MG TAB PO ONE (11:30)
[2024-08-14] MEDS: FUROSEMIDE 20 MG/2 ML VIAL IV SCH (18:28)
[2024-08-14] MEDS: methylPREDNISolone SOD SUCC 40 MG/ML VL IV SCH (21:00)
[2024-08-15] VITALS (17 sets, daily range): BP systolic 102–132; BP diastolic 69–74; PULSE 56–106; RESP 16–22; TEMP 97.5–98.6; O2SAT 96–100
[2024-08-15 06:43] LABS: Calcium 9.7 mg/dL (8.7-10.4); Potassium 4.3 mmol/L (3.5-5.1)
[2024-08-15 06:44] LABS: Anion Gap 5 (5-15)
[2024-08-15 06:49] LABS: BUN/Creatinine Ratio 24.7 (10.0-20.0); Blood Urea Nitrogen 21 mg/dL (9-23)
[2024-08-15 06:57] LABS: Carbon Dioxide 35 mmol/L (20-31); Chloride 91 mmol/L (98-107); Glucose 128 mg/dL (74-106); Sodium 131 mmol/L (136-145)
--- NOTE | 2024-08-15 10:57 | DVHPN2 ---
Progress Note Date Seen: Aug 15, 2024 Medical Necessity Reason Pt with a Central, PICC or Fol: Yes The following are medically ne: Griffin Catheter Reason for griffin catheter: Strict I&O Subjective Patient reports: No new complaints Review of Systems: HEENT:Normal, CVS:Normal, RESPIRATORY:Normal, GI:Normal, :Normal, MSK:Normal, NEURO:Normal Objective vital signs Vital Sign Date Time Temp Pulse Resp B/P (MAP) Pulse Ox O2 Delivery O2 Flow Rate FiO2 08/15/24 09:00 98.6 79 16 129/69 (89) 99 98.6 08/15/24 07:13 Nasal Cannula* 3 32 Total Intake and Output 08/14/24 08/14/24 08/15/24 15:00 23:00 07:00 Intake Total 50 ml 750 ml 140 ml Output Total 1750 ml Balance 50 ml -1000 ml 140 ml medications Current Medications Medications Dose Ordered Sig/Marcello Route Start Time Stop Time Status Last Admin Dose Admin Aspirin 81 mg DAILY PO 08/07/24 10:00 08/14/24 10:47 81 MG Tamsulosin HCl 0.4 mg QPM PO 08/07/24 18:00 08/14/24 18:28 0.4 MG Ondansetron HCl 4 mg Q4HP PRN IV 08/06/24 21:30 Enoxaparin Sodium 40 mg DAILY SC 08/07/24 10:00 08/14/24 10:05 40 MG Acetaminophen 650 mg Q6HP PRN PO 08/06/24 21:30 Guaifenesin/ Dextromethorphan 10 ml Q4HP PRN PO 08/06/24 22:15 08/10/24 13:58 10 ML Albuterol 2.5 mg Q4HP PRN NEB 08/07/24 12:00 08/11/24 14:54 2.5 MG Albuterol 2.5 mg Q6HWA NEB 08/07/24 12:00 08/15/24 07:12 2.5 MG Ipratropium [place] 0.5 mg Q6HWA NEB 08/07/24 12:00 08/15/24 07:12 0.5 MG Ceftriaxone Sodium 50 ml @ 100 mls/hr DAILY@09 IV 08/08/24 09:00 08/14/24 10:03 100 MLS/HR Montelukast Sodium 10 mg HS PO 08/08/24 22:00 08/14/24 20:59 10 MG Alprazolam 0.25 mg Q12HP PRN PO 08/09/24 12:00 08/09/24 12:36 0.25 MG Hydralazine HCl 10 mg Q6HP PRN IV 08/09/24 12:00 08/11/24 06:15 10 MG Enteral Nutritional Formula 240 ml TIDWM PO 08/09/24 12:00 08/14/24 18:03 240 ML Budesonide 0.5 mg BID NEB 08/11/24 22:00 08/15/24 07:12 0.5 MG Azithromycin 500 mg DAILY PO 08/14/24 10:00 08/14/24 10:04 500 MG Amlodipine Besylate 10 mg DAILY PO 08/15/24 10:00 Methylprednisolone Sodium Succinate 40 mg BID IV 08/14/24 22:00 08/14/24 21:00 40 MG Furosemide 20 mg BIDD IV 08/14/24 18:00 08/15/24 05:14 20 MG Examination: GENERAL:Normal, HEENT:Normal, NECK:Normal, LUNGS:Normal, LUNGS:Abnormal (on oxygen, rhonchi+), CVS:Normal, ABDOMEN:Normal, MSK:Normal, SKIN:Normal, NEURO:Normal, :Normal laboratory and microbiology Laboratory Tests 08/15/24 06:03 08/14/24 06:54 Test 08/15/24 06:03 Range/Units Serum Glucose 128 H 74-106 mg/dL Problem List/Assessment/Plan Problem List/Assessment/Plan #1 copd with exacerbation: steroids, bronchodilators #2 ?pneumonia- gram positive/neg:iv antibiotics #3 acute on chronic diastolic heart failure: lasix, xray #4 bph #5 h/o prostate cancer: griffin #6 acute resp failure: on oxygen/bipap unstable for transfer advance care planning- full code- time spent 19 mins long dw daughter Frances Plan discussed with: Patient, Daughter My Orders My Orders Orders - MONICA DODGE MD Procedure Category Date Status Time Amlodipine Tablet PHA 08/15/24 In Process (Norvasc Tablet) 10:00 Methylprednisolone PHA 08/14/24 In Process Sod Succ (Solu Medrol 22:00 Furosemide Injection PHA 08/14/24 In Process (Lasix Injection) 18:00 Date of Service: Aug 15, 2024 Billing Provider: MONICA DODGE MD Common Visit Codes: [id number] INP/OBS CARE(HIGH) MONICA DODGE MD Aug 15, 2024 10:57
[2024-08-15] MEDS: amLODIPine BESYLATE 5 MG TAB PO SCH (10:58)
[2024-08-15] MEDS: guaiFENesin 200 MG/10 ML UD PO PRN (11:11)
[2024-08-16] VITALS (15 sets, daily range): BP systolic 96–131; BP diastolic 56–69; PULSE 80–100; RESP 17–24; TEMP 97.5–98.8; O2SAT 92–99
[2024-08-16 07:04] LABS: Basophils # (auto) 0 10 ^3/uL (0-0.2); Eosinophils # (auto) 0 10 ^3/uL (0-0.8); Lymphocytes # (auto) 0.5 10 ^3/uL (0.4-5.4)
[2024-08-16 07:05] LABS: Basophils % (auto) 0.1 % (0.0-2.0); Hematocrit 36.3 % (41.0-53.0); Hemoglobin 12.5 g/dL (13.5-17.5); Lymphocytes % (auto) 5.6 % (10.0-50.0); Mean Corpuscular Hemoglobin 33.9 pg (28.0-32.0); Mean Corpuscular Hgb Conc. 34.4 g/dL (32.0-36.0); Mean Corpuscular Volume 98.6 fL (80.0-100.0); Monocytes # (auto) 0.6 10 ^3/uL (0-1.3); Neutrophils # (auto) 8.2 10 ^3/uL (1.6-8.6); Neutrophils % (auto) 88.3 % (37.0-80.0); Nucleated Red Blood Cells % 0.1 %; Platelet Count (auto) 169 10^3/uL (140-450); Red Blood Cells 3.69 10^6/uL (4.5-5.90); Red Cell Distribution Width 14.1 % (11.8-14.3); White Blood Cell 9.2 10^3/uL (4.4-10.8)
[2024-08-16 07:10] LABS: Anion Gap 6 (5-15); Carbon Dioxide 32 mmol/L (20-31); Chloride 92 mmol/L (98-107); Potassium 4.1 mmol/L (3.5-5.1); Sodium 130 mmol/L (136-145)
[2024-08-16 07:11] LABS: Calcium 9.3 mg/dL (8.7-10.4)
[2024-08-16 07:16] LABS: Blood Urea Nitrogen 20 mg/dL (9-23)
[2024-08-16 07:17] LABS: Glucose 129 mg/dL (74-106)
[2024-08-16] MEDS: FUROSEMIDE 20 MG TAB PO SCH (08:06)
--- NOTE | 2024-08-16 08:23 | DVH ---
Procedure: XY CHEST XRAY 1 VIEW 08/16/2024 08:08 AM Indication: sob Comparison: XY CHEST PORTABLE on DOS: 08/14/24, XY CHEST PORTABLE on DOS: 08/11/24, XY CHEST PORTABLE on DOS: 08/10/24 TECHNIQUE: XY CHEST XRAY 1 VIEW FINDINGS: Medical devices: None. Cardiomediastinal: The heart is normal in size. Pulmonary vasculature is within normal limits. Athero sclerotic calcification of the aortic arch noted. Lungs: Mild bibasilar reticular opacities are seen. Mild asymmetric elevation of the left hemidiaphra gm. The costophrenic angles are clear. No pneumothorax. Bones/soft tissues: No acute abnormality is noted. Orthopedic hardware noted in the lower cervical sp ine. Atherosclerotic calcification of the right carotid bulb. IMPRESSION: 1. Mild bibasilar bronchial wall thickening and reticular opacities suggestive of bronchitis and/or s ubsegmental atelectasis. Recommend clinical and biochemical correlation.
--- NOTE | 2024-08-16 14:29 | DVHPN2 ---
Progress Note Date Seen: Aug 16, 2024 Medical Necessity Reason Pt with a Central, PICC or Fol: Yes The following are medically ne: Griffin Catheter Reason for griffin catheter: Strict I&O Subjective Patient reports: No new complaints Review of Systems: HEENT:Normal, CVS:Normal, RESPIRATORY:Normal, GI:Normal, :Normal, MSK:Normal, NEURO:Normal Objective vital signs Vital Sign Date Time Temp Pulse Resp B/P (MAP) Pulse Ox O2 Delivery O2 Flow Rate FiO2 08/16/24 13:31 95 Nasal Cannula 4.0 08/16/24 13:31 100 20 08/16/24 13:31 36 08/16/24 13:00 98.8 96/56 (69) 98.8 Total Intake and Output 08/15/24 08/15/24 08/16/24 15:00 23:00 07:00 Intake Total 250 ml 450 ml 350 ml Output Total 2350 ml 650 ml 900 ml Balance -2100 ml -200 ml -550 ml medications Current Medications Medications Dose Ordered Sig/Marcello Route Start Time Stop Time Status Last Admin Dose Admin Aspirin 81 mg DAILY PO 08/07/24 10:00 08/16/24 09:35 81 MG Tamsulosin HCl 0.4 mg QPM PO 08/07/24 18:00 08/15/24 18:46 0.4 MG Ondansetron HCl 4 mg Q4HP PRN IV 08/06/24 21:30 Enoxaparin Sodium 40 mg DAILY SC 08/07/24 10:00 08/16/24 09:35 40 MG Acetaminophen 650 mg Q6HP PRN PO 08/06/24 21:30 Albuterol 2.5 mg Q4HP PRN NEB 08/07/24 12:00 08/15/24 22:25 2.5 MG Albuterol 2.5 mg Q6HWA NEB 08/07/24 12:00 08/16/24 10:26 2.5 MG Ipratropium [place] 0.5 mg Q6HWA NEB 08/07/24 12:00 08/16/24 13:30 0.5 MG Ceftriaxone Sodium 50 ml @ 100 mls/hr DAILY@09 IV 08/08/24 09:00 08/16/24 09:32 100 MLS/HR Montelukast Sodium 10 mg HS PO 08/08/24 22:00 08/15/24 21:52 10 MG Alprazolam 0.25 mg Q12HP PRN PO 08/09/24 12:00 08/16/24 08:06 0.25 MG Hydralazine HCl 10 mg Q6HP PRN IV 08/09/24 12:00 08/11/24 06:15 10 MG Enteral Nutritional Formula 240 ml TIDWM PO 08/09/24 12:00 08/16/24 13:59 240 ML Budesonide 0.5 mg BID NEB 08/11/24 22:00 08/16/24 06:47 0.5 MG Azithromycin 500 mg DAILY PO 08/14/24 10:00 08/16/24 09:35 500 MG Amlodipine Besylate 10 mg DAILY PO 08/15/24 10:00 08/16/24 09:36 10 MG Methylprednisolone Sodium Succinate 40 mg BID IV 08/14/24 22:00 08/16/24 08:05 40 MG Furosemide 20 mg DAILY PO 08/16/24 10:00 08/16/24 08:06 20 MG Guaifenesin 200 mg Q4HP PRN PO 08/15/24 11:00 08/15/24 11:11 200 MG Examination: GENERAL:Normal, HEENT:Normal, NECK:Normal, LUNGS:Normal, LUNGS:Abnormal (on oxygen), CVS:Normal, ABDOMEN:Normal, MSK:Normal, SKIN:Normal, NEURO:Normal, :Normal laboratory and microbiology Laboratory Tests 08/16/24 06:17 Test 08/16/24 06:17 Range/Units Serum Glucose 129 H 74-106 mg/dL Problem List/Assessment/Plan Problem List/Assessment/Plan #1 copd with exacerbation: steroids, bronchodilators #2 ?pneumonia- gram positive/neg:iv antibiotics #3 acute on chronic diastolic heart failure: lasix, xray #4 bph #5 h/o prostate cancer: griffin #6 acute resp failure: on oxygen/bipap unstable for transfer advance care planning- full code- time spent 19 mins long dw daughter Frances Plan discussed with: Patient My Orders My Orders Orders - MONICA DODGE MD Procedure Category Date Status Time Chest Xray 1 View XY 08/16/24 Resulted 07:59 Date of Service: Aug 16, 2024 Billing Provider: MONICA DODGE MD Common Visit Codes: [id number] INP/OBS CARE(HIGH) MONICA DODGE MD Aug 16, 2024 14:29
[2024-08-16] MEDS: POTASSIUM CHL 10 Meq TABLET PO ONE (14:58)
[2024-08-16] MEDS: FUROSEMIDE 20 MG TAB PO ONE (14:58)
[2024-08-17] VITALS (16 sets, daily range): BP systolic 110–128; BP diastolic 60–77; PULSE 70–89; RESP 14–24; TEMP 97.6–97.8; O2SAT 95–100
[2024-08-17 08:13] LABS: Anion Gap 7 (5-15); Potassium 4.1 mmol/L (3.5-5.1)
[2024-08-17 08:15] LABS: Calcium 9.2 mg/dL (8.7-10.4); Carbon Dioxide 31 mmol/L (20-31); Chloride 94 mmol/L (98-107); Sodium 132 mmol/L (136-145)
[2024-08-17 08:20] LABS: BUN/Creatinine Ratio 27.8 (10.0-20.0); Blood Urea Nitrogen 20 mg/dL (9-23)
[2024-08-17 08:21] LABS: Glucose 121 mg/dL (74-106)
[2024-08-17] MEDS: POTASSIUM CHL 10 Meq TABLET PO SCH (08:49)
[2024-08-17] MEDS: FUROSEMIDE 20 MG TAB PO SCH (08:56)
--- NOTE | 2024-08-17 17:35 | DVHPN2 ---
Subjective Continues to have shortness of breath and inspiratory expiratory wheezing. Reviewed: Care Plan, H&P, Labs, Medications, Previous Orders Changes from previous H/P or p: No Changes General: Per HPI Objective Vitals Vital Signs Date Time Temp Pulse Resp B/P (MAP) Pulse Ox O2 Delivery O2 Flow Rate FiO2 08/17/24 17:05 97.6 80 19 121/65 (83) 96 97.6 08/17/24 12:16 Nasal Cannula 2.0 08/17/24 12:16 28 Intake/Output Intake and Output 08/17/24 07:00 Intake Total 1150 ml Output Total 2800 ml Balance -1650 ml Intake Oral 1150 ml Output Urine Total 2800 ml General Appearance: Alert, Oriented X3, Cooperative, No acute distress HEENT: Atraumatic, PERRLA Neck: Carotid [place] Lungs: Other (Severe inspiratory and expiratory wheezing) Cardiovascular: Normal S1, Normal S2 Abdomen: Normal bowel sounds Genitourinary: No Apparent Abnormalities Musculoskeletal: Normal sensory function, Normal motor function Skin: Dry, Intact Psych/Mental Status: Mental status NL, Mood NL Medications Current Medications Medications Dose Ordered Sig/Marcello Route Start Time Stop Time Status Last Admin Dose Admin Aspirin 81 mg DAILY PO 08/07/24 10:00 08/17/24 08:50 81 MG Tamsulosin HCl 0.4 mg QPM PO 08/07/24 18:00 08/16/24 18:35 0.4 MG Ondansetron HCl 4 mg Q4HP PRN IV 08/06/24 21:30 Enoxaparin Sodium 40 mg DAILY SC 08/07/24 10:00 08/17/24 08:49 40 MG Acetaminophen 650 mg Q6HP PRN PO 08/06/24 21:30 Albuterol 2.5 mg Q4HP PRN NEB 08/07/24 12:00 08/15/24 22:25 2.5 MG Albuterol 2.5 mg Q6HWA NEB 08/07/24 12:00 08/17/24 12:16 2.5 MG Ipratropium [place] 0.5 mg Q6HWA NEB 08/07/24 12:00 08/17/24 12:16 0.5 MG Ceftriaxone Sodium 50 ml @ 100 mls/hr DAILY@09 IV 08/08/24 09:00 08/17/24 08:50 100 MLS/HR Montelukast Sodium 10 mg HS PO 08/08/24 22:00 08/16/24 22:04 10 MG Alprazolam 0.25 mg Q12HP PRN PO 08/09/24 12:00 08/16/24 08:06 0.25 MG Hydralazine HCl 10 mg Q6HP PRN IV 08/09/24 12:00 08/11/24 06:15 10 MG Enteral Nutritional Formula 240 ml TIDWM PO 08/09/24 12:00 08/17/24 12:00 240 ML Budesonide 0.5 mg BID NEB 08/11/24 22:00 08/17/24 06:48 0.5 MG Azithromycin 500 mg DAILY PO 08/14/24 10:00 08/17/24 08:48 500 MG Methylprednisolone Sodium Succinate 40 mg BID IV 08/14/24 22:00 08/17/24 08:49 40 MG Guaifenesin 200 mg Q4HP PRN PO 08/15/24 11:00 08/15/24 11:11 200 MG Furosemide 40 mg DAILY PO 08/17/24 10:00 08/17/24 08:56 40 MG Potassium Chloride 10 meq DAILY PO 08/17/24 10:00 08/17/24 08:49 10 MEQ Laboratory Results Laboratory Tests 08/16/24 06:17 08/17/24 07:17 Chemistry Test 08/17/24 07:17 Calcium Level 9.2 mg/dL (8.7-10.4) Urinalysis Test 08/07/24 20:44 Urine Color Light-yellow (Yellow) Urine Clarity Clear (Clear) Urine pH 6.5 (5.0-9.0) Urine Specific [place] 1.007 (1.001-1.035) Urine Protein Negative (Negative) Urine Ketones Negative (Negative) Urine Blood Negative /uL (Negative) Urine Nitrite Negative (Negative) Urine Bilirubin Negative (Negative) Urine Urobilinogen Normal mg/dL (Negative) Urine Leukocyte Esterase Negative /uL (Negative) Urine RBC 1 /hpf (0 - 3) Urine Microscopic WBC < 1 /HPF (0-3) Urine Squamous Epithelial Cells Few /hpf (<5) Urine Bacteria None seen /hpf (None Seen) Urine Glucose Normal mg/dL (Normal) Labs and/or images reviewed: Labs reviewed by me, Image(s) reviewed by me Assessment/Plan Assessment/Plan Impression: -acute on chronic hypoxic respiratory failure -COPD with exacerbation -history of prostate cancer -acute on chronic diastolic heart failure -BPH Plan: Events: Patient was able to ambulate with physical therapy and had reoccurrence of some dyspnea. Continues to report having difficulty coughing up phlegm. -continue antibiotic therapy -continue IV diuresis -continue Pulmicort and DuoNebs. Add Mucomyst q.6 hours x4 doses. -continue O2 supplementation with oxygen and BiPAP as needed -physical therapy -patient continues to be unstable for transfer to [facility] and given acute respiratory failure with severe COPD exacerbation. Discussed plan of care with patient was family was bedside. Total time spent with patient discussing and formulating plan of care: 35 minutes. This medical document was created using an electronic medical record system with [employer] dictation system. Although this document has been carefully reviewed, there may still be some phonetic and typographical errors. These areas are purely typographical due to imperfections of the software programs, and do not reflect any compromise in the patient's medical care. Plan discussed with: Patient, Other (RN) Date of Service: Aug 17, 2024 Billing Provider: ORTEGA BUITRAGO NP Common Visit Codes: [id number] INP/OBS CARE(HIGH) ORTEGA BUITRAGO NP Aug 17, 2024 17:35
[2024-08-17] MEDS: ACETYLCYSTEINE 10 %(100MG/ML) SOL 4ML NEB SCH (19:34)
[2024-08-18] VITALS (17 sets, daily range): BP systolic 106–134; BP diastolic 55–76; PULSE 66–87; RESP 16–30; TEMP 96.9–98.2; O2SAT 95–100
--- NOTE | 2024-08-18 14:59 | DVHPN2 ---
Subjective The patient is seen and examined at bedside. Still complain of shortness for breath. Feeling the mucus stuck in his lung Reviewed: Care Plan, H&P, Labs, Medications, Previous Orders Changes from previous H/P or p: No Changes General: Per HPI Objective Vitals Vital Signs Date Time Temp Pulse Resp B/P (MAP) Pulse Ox O2 Delivery O2 Flow Rate FiO2 08/18/24 13:00 97.6 79 18 106/76 (86) 98 97.6 08/18/24 12:03 Nasal Cannula 2.0 08/18/24 12:03 28 Intake/Output Intake and Output 08/18/24 07:00 Intake Total 1590 ml Output Total 3100 ml Balance -1510 ml Intake Oral 1540 ml IV Total 50 ml Output Urine Total 3100 ml # Bowel Movements 1 General Appearance: Alert, Oriented X3, Cooperative, No acute distress HEENT: Atraumatic, PERRLA Neck: Carotid Bru[place] Lungs: Other (Severe inspiratory and expiratory wheezing) Cardiovascular: Normal S1, Normal S2 Abdomen: Normal bowel sounds Genitourinary: No Apparent Abnormalities Musculoskeletal: Normal sensory function, Normal motor function Skin: Dry, Intact Psych/Mental Status: Mental status NL, Mood NL Medications Current Medications Medications Dose Ordered Sig/Marcello Route Start Time Stop Time Status Last Admin Dose Admin Aspirin 81 mg DAILY PO 08/07/24 10:00 08/18/24 09:05 81 MG Tamsulosin HCl 0.4 mg QPM PO 08/07/24 18:00 08/17/24 18:10 0.4 MG Ondansetron HCl 4 mg Q4HP PRN IV 08/06/24 21:30 Acetaminophen 650 mg Q6HP PRN PO 08/06/24 21:30 Albuterol 2.5 mg Q4HP PRN NEB 08/07/24 12:00 08/15/24 22:25 2.5 MG Albuterol 2.5 mg Q6HWA NEB 08/07/24 12:00 08/18/24 12:03 2.5 MG Ipratropium [place] 0.5 mg Q6HWA NEB 08/07/24 12:00 08/18/24 12:03 0.5 MG Ceftriaxone Sodium 50 ml @ 100 mls/hr DAILY@09 IV 08/08/24 09:00 08/18/24 09:06 100 MLS/HR Montelukast Sodium 10 mg HS PO 08/08/24 22:00 08/17/24 21:48 10 MG Alprazolam 0.25 mg Q12HP PRN PO 08/09/24 12:00 08/16/24 08:06 0.25 MG Hydralazine HCl 10 mg Q6HP PRN IV 08/09/24 12:00 08/11/24 06:15 10 MG Enteral Nutritional Formula 240 ml TIDWM PO 08/09/24 12:00 08/18/24 12:00 240 ML Budesonide 0.5 mg BID NEB 08/11/24 22:00 08/18/24 06:44 0.5 MG Azithromycin 500 mg DAILY PO 08/14/24 10:00 08/18/24 09:04 500 MG Methylprednisolone Sodium Succinate 40 mg BID IV 08/14/24 22:00 08/18/24 09:05 40 MG Guaifenesin 200 mg Q4HP PRN PO 08/15/24 11:00 08/15/24 11:11 200 MG Furosemide 40 mg DAILY PO 08/17/24 10:00 08/18/24 09:05 40 MG Potassium Chloride 10 meq DAILY PO 08/17/24 10:00 08/18/24 09:05 10 MEQ Laboratory Results Laboratory Tests 08/16/24 06:17 08/17/24 07:17 Urinalysis Test 08/07/24 20:44 Urine Color Light-yellow (Yellow) Urine Clarity Clear (Clear) Urine pH 6.5 (5.0-9.0) Urine Specific [place] 1.007 (1.001-1.035) Urine Protein Negative (Negative) Urine Ketones Negative (Negative) Urine Blood Negative /uL (Negative) Urine Nitrite Negative (Negative) Urine Bilirubin Negative (Negative) Urine Urobilinogen Normal mg/dL (Negative) Urine Leukocyte Esterase Negative /uL (Negative) Urine RBC 1 /hpf (0 - 3) Urine Microscopic WBC < 1 /HPF (0-3) Urine Squamous Epithelial Cells Few /hpf (<5) Urine Bacteria None seen /hpf (None Seen) Urine Glucose Normal mg/dL (Normal) Labs and/or images reviewed: Labs reviewed by me Assessment/Plan Assessment/Plan -acute on chronic hypoxic respiratory failure -COPD with exacerbation -history of prostate cancer -acute on chronic diastolic heart failure -BPH Plan: Continuing current management. Continuing with physical therapy. The patient was able to ambulate with physical therapy and had reoccurrence of some dyspnea. Continues to report having difficulty coughing up phlegm. -continue antibiotic therapy -continue IV diuresis -continue Pulmicort and DuoNebs. Add Mucomyst q.6 hours x4 doses. -continue O2 supplementation with oxygen and BiPAP as needed -physical therapy -patient continues to be unstable for transfer to [facility] and given acute respiratory failure with severe COPD exacerbation. Discussed plan of care with patient and his at bedside This medical document was created using an electronic medical record system with [employer] computerized dictation system. Although this document has been carefully reviewed, there may still be some phonetic and typographical errors. These areas are purely typographical due to imperfections of the software programs, and do not reflect any compromise in the patient's medical care.. Plan discussed with: Patient, Spouse Date of Service: Aug 18, 2024 Billing Provider: MARCELLO GU MD Common Visit Codes: [id number] INP/OBS CARE(HIGH) MARCELLO GU MD Aug 18, 2024 14:59
[2024-08-18] MEDS: methylPREDNISolone SOD SUCC 125 MG/2 ML VL IV SCH (21:33)
--- NOTE | 2024-08-18 21:53 | DVHINCON2 ---
Date of service: Aug 18, [address] Mara Reese Reason for Consultation Acute on chronic hypoxic respiratory failure, COPD exacerbation History of Present Illness 89-year-old man with PMHx of asthma, hypertension and cancer who presented to ED on 08/06/24 for evaluation of shortness of breath. Patient reported a one-week history of shortness of breath and a productive cough with yellowish/white phlegm. He also reported occasional chills. No chest pain or palpitations. No other acute complaints reported. Patient was admitted for further care and pulmonary consultation is requested for evaluation and management of acute on chronic hypoxic respiratory failure and COPD exacerbation . Review of Systems: 14-point review of systems negative unless otherwise noted above. Past Medical History: Hypertension, asthma and cancer Past Surgical History: Denies Medications: Reviewed. Allergies: No known drug allergies. Family History: Diabetes, cancer, glaucoma. Social History: Nonsmoker. Occasional alcohol use. No illicit drug use. Family History: Diabetes mellitus GRANDMOTHER FH: cancer 19 CHILD Glaucoma GRANDMOTHER Allergies: Coded Allergies: NO KNOWN ALLERGIES (Unverified , 07/17/20) Home Meds Active Scripts Furosemide (Lasix) 20 Mg Tb, 1 TAB PO DAILY for 7 Days, #7 TAB 1 Refill Prov:ANDRZEJ MALDONADO MD 06/10/24 Ipratropium [place] (Ipratropium [place]) 0.02 % Paz, 0.5 % HHN TID PRN, #120 ML Prov:GUILLERMO CARPENTER 04/23/24 Ciprofloxacin Hcl (Ciprofloxacin Hcl) 500 Mg Tab, 500 MG PO Q12HR for 7 Days, #14 MG Prov:AGUSTIN VALLEJO MD 07/20/21 Oxymetazoline HCl (Afrin Nasal [place]) 0.05 % Spr, 0.05 % NA BID for 2 Days, #2 SPRAYS Prov:ANNE MARIE RING MD 05/24/21 Reported Medications Multiple Vitamin (Multivitamins) Cap, 1 CAP PO DAILY, #30 CAP 3 Refills 07/19/20 Aspirin (Aspir-Low) 81 Mg Tab, 81 MG PO DAILY for 30 Days, MG 07/19/20 Albuterol Sulfate (VENTOLIN MDI) 90 Mcg Ih, 180 MCG IN Q4HPRN PRN for SHORTNESS OF BREATH for 30 Days, MCG 07/19/20 Tiotropium [place] Monohydrate (Spiriva Respimat) 2.5 Mcg/Act Spr, 2.5 MCG IN DAILY, SPRAY 07/19/20 Fluticasone-Salmeterol (Advair Diskus 500/50) 1 Puff Ih, 1 PUFF INH BID, #1 INHALER 5 Refills 07/19/20 Montelukast Sodium (Singulair) 5 Mg Chw, 10 MG PO HS, TAB.CHEW 07/19/20 Nitrofurantoin Monohydrate Mac (Macrobid) 100 Mg Cap, 100 MG PO BID, CAP 07/19/20 Tamsulosin Hcl (Flomax) 0.4 Mg Cap, 1 CAP PO DAILY, #90 CAP 3 Refills 07/19/20 Prednisone (Prednisone) 10 Mg Ritesh, 10 MG PO DAILY, PACK 07/19/20 Current Medications Current Medications Medications (Trade) Dose Ordered Sig/Marcello Route PRN Reason Start Time Stop Time Status Last Admin Methylprednisolone Sodium Succinate (Solu Medrol) 60 mg BID IV 08/18/24 22:00 08/18/24 21:33 Vital Signs Vital Signs Date Time Temp Pulse Resp B/P (MAP) Pulse Ox O2 Delivery O2 Flow Rate FiO2 08/18/24 21:00 97.7 85 18 120/63 (82) 95 97.7 08/18/24 20:00 Nasal Cannula 2.0 08/18/24 20:00 28 Physical Exam Gen.: Patient lying in bed in no apparent distress. On supplemental oxygen. Head: Normocephalic, atraumatic. Eyes: EOMI/PERRLA. Ears: Normal hearing. Normal anatomy. Neck/trachea: Trachea midline, supple. Nose: Normal external anatomy. Mouth: Moist mucous membranes. Chest: Decreased air entry bilaterally. No wheezing or rhonchi. Cardiovascular: Positive S1, positive S2. Regular rate and rhythm. Abdomen: Positive bowel sounds in all 4 quadrants. Soft, non-tender, non- distended. : Deferred. Rectal: Deferred. Skin: Warm, dry. Intact. Extremities: 2+ radial pulses bilaterally. No lower extremity edema. Neuro: Awake, alert, oriented x3. No gross motor or sensory deficits. Cranial nerves II through XII intact. Gait not assessed. Labs/Diagnostic Data Labs Test 08/17/24 07:17 08/16/24 06:17 08/14/24 06:54 08/12/24 17:13 Range/Units Sodium Level 132 L 136-145 mmol/L Potassium Level 4.1 3.5-5.1 mmol/L Chloride Level 94 L 98-107 mmol/L Carbon Dioxide Level 31 20-31 mmol/L Anion Gap 7 5-15 Blood Urea Nitrogen 20 9-23 mg/dL Creatinine 0.72 0.700-1.30 mg/dL Glomerular Filtration Rate Calc 87 >90 mL/min BUN/Creatinine Ratio 27.8 H 10.0-20.0 Serum Glucose 121 H 74-106 mg/dL Calcium Level 9.2 8.7-10.4 mg/dL White Blood Count 9.2 4.4-10.8 10^3/uL Red Blood Count 3.69 L 4.5-5.90 10^6/uL Hemoglobin 12.5 L 13.5-17.5 g/dL Hematocrit 36.3 L 41.0-53.0 % Mean Corpuscular Volume 98.6 80.0-100.0 fL Mean Corpuscular Hemoglobin 33.9 H 28.0-32.0 pg Mean Corpuscular Hemoglobin Concent 34.4 32.0-36.0 g/dL Red Cell Distribution Width 14.1 11.8-14.3 % Platelet Count 169 140-450 10^3/uL Mean Platelet Volume 7.2 6.9-10.8 fL Neutrophils (%) (Auto) 88.3 H 37.0-80.0 % Lymphocytes (%) (Auto) 5.6 L 10.0-50.0 % Monocytes (%) (Auto) 6.0 0.0-12.0 % Eosinophils (%) (Auto) 0.0 0.0-7.0 % Basophils (%) (Auto) 0.1 0.0-2.0 % Neutrophils # (Auto) 8.2 1.6-8.6 10 ^3/uL Lymphocytes # (Auto) 0.5 0.4-5.4 10 ^3/uL Monocytes # (Auto) 0.6 0-1.3 10 ^3/uL Eosinophils # (Auto) 0 0-0.8 10 ^3/uL Basophils # (Auto) 0 0-0.2 10 ^3/uL Nucleated Red Blood Cells 0.1 % Total Bilirubin 0.9 0.2-1.0 mg/dL Aspartate Amino Transferase (AST) 19 13-40 U/L Alanine Aminotransferase (ALT) 21 7-40 U/L Alkaline Phosphatase 50 46-116 U/L Total Protein 5.3 L 5.7-8.2 g/dL Albumin 3.3 3.2-4.8 g/dL Erythrocyte Sedimentation Rate 10 0-20 mm/hr C-Reactive Protein High Sensitivity 0.07 <1.0 mg/dL Test 08/09/24 02:50 08/07/24 20:44 08/06/24 22:30 08/06/24 18:31 Range/Units Blood Gas Specimen Type Arterial Blood Gas Sample Site Right radial Blood Gas Patient Temperature 37.0 Arterial Blood Date Drawn [id number] Arterial Blood pH 7.438 7.350-7.450 Arterial Blood Partial Pressure CO2 41.2 35.0-48.0 mmHg Arterial Blood Partial Pressure O2 85.7 83.0-108.0 mmHg Arterial Blood HCO3 27.2 21.0-28.0 mmol/L Arterial Blood Oxygen Saturation 95.6 94.0-98.0 % Arterial Blood Base Excess 2.8 -2.0-3.0 mmol/L Arterial Blood Oxyhemoglobin 94.7 94.0-98.0 % Arterial Blood Carboxyhemoglobin 0.6 0.5-1.5 % Arterial Blood Methemoglobin 0.3 0.0-1.5 % Travis Test Modified Blood Gas Total Hemoglobin 14.00 13.5-17.5 g/dL Blood Gas Liter Flow 4.00 Blood Gas Modality Nasal cannula FiO2 % 36.0 Urine Color Light-yellow Yellow Urine Clarity Clear Clear Urine pH 6.5 5.0-9.0 Urine Specific [place] 1.007 1.001-1.035 Urine Protein Negative Negative Urine Ketones Negative Negative Urine Blood Negative Negative /uL Urine Nitrite Negative Negative Urine Bilirubin Negative Negative Urine Urobilinogen Normal Negative mg/dL Urine Leukocyte Esterase Negative Negative /uL Urine RBC 1 0 - 3 /hpf Urine Microscopic WBC < 1 0-3 /HPF Urine Squamous Epithelial Cells Few <5 /hpf Urine Bacteria None seen None Seen /hpf Urine Glucose Normal Normal mg/dL Influenza Type A Antigen Negative Negative Influenza Type B Antigen Negative Negative SARS-CoV-2 Antigen (Rapid) Negative NEGATIVE D-Dimer, Quantitative 0.25 0.0-0.49 mg/L FEU B-Type Natriuretic Peptide 89.10 0-100 pg/mL Assessment Impression: Acute on chronic hypoxic respiratory failure Dependence on supplemental oxygen Acute COPD exacerbation Congestive heart failure Hypertension BPH Hx of prostate cancer Plan: Supplemental oxygen 2 LPM NC Titrate to keep O2 sats above 92%. Taper O2 as tolerated. Continue bronchodilators/Pulmicort Mucomyst Continue antibiotics IV steroids - increase dose of Solu-Medrol to 60 mg BID Diurese to euvolemia w/ Lasix Monitor renal function. Monitor electrolytes. Supplement as necessary. Monitor ins and outs. DVT prophylaxis - Lovenox SC Prognosis: Poor given patient's multiple co-morbidities. Rest of plan per hospitalist and other consultants. Thank you Dr Mara Reese for allowing me to participate in this patient's care. Further recommendations will depend on the patient's clinical course. Please do not hesitate to contact me if you have any questions or concerns. This medical document was created using an electronic medical record system with [employer] computerized dictation system. Although these documentations are being carefully reviewed, there may still be some phonetic and typographical changes. The errors are purely typographical, due to imperfection on the software program, and do not reflect any compromise in the patient's medical care. Plan discussed with: Patient, Other (SHILA Cheng/MACARIO Leggett/) AMELIE SHAH MD Aug 18, 2024 21:53
[2024-08-19] VITALS (19 sets, daily range): BP systolic 107–147; BP diastolic 67–80; PULSE 67–97; RESP 18–26; TEMP 97–98.5; O2SAT 95–100
--- NOTE | 2024-08-19 16:08 | DVH ---
CHEST RADIOGRAPH Indication: Respiratory failure/productive cough Technique: Single frontal view of the chest was obtained COMPARISON: XY CHEST XRAY 1 VIEW on DOS: 08/16/24 FINDINGS: Lines and Tubes: None Lungs: Mild hazy/patchy opacities at the lung bases are similar from prior. Calcified 5 mm nodule in the left mid lung is unchanged. Pleura: No effusion. No pneumothorax. Cardiomediastinal contours: Atherosclerotic uncoiling of the aortic arch. Heart is stable in size. Mo derate elevation of the left hemidiaphragm. Bones: No evidence of acute osseous abnormalities. Degenerative changes are noted at the right should er. Mild to moderate multilevel degenerative disc changes thoracic spine. Partially visualized lowe r cervical spine ACDF. IMPRESSION: Mild bibasilar atelectasis is similar from prior. Minimal underlying aspiration or pneumonia is diffi cult to exclude radiographically.
--- NOTE | 2024-08-19 21:14 | DVHPN2 ---
"Subjective The patient is seen and examined at bedside. Still complain of shortness for breath. Feeling the mucus stuck in his lung Reviewed: Care Plan, H&P, Labs, Medications, Previous Orders Changes from previous H/P or p: No Changes General: Per HPI Objective Vitals Vital Signs Date Time Temp Pulse Resp B/P (MAP) Pulse Ox O2 Delivery O2 Flow Rate FiO2 08/19/24 20:20 93 26 100 08/19/24 20:12 Nasal Cannula 2.0 08/19/24 20:12 28 08/19/24 17:01 97.5 133/79 (97) 97.5 Intake/Output Intake and Output 08/19/24 07:00 Intake Total 1575 ml Output Total 3200 ml Balance -1625 ml Intake Oral 1525 ml IV Total 50 ml Output Urine Total 3200 ml General Appearance: Alert, Oriented X3, Cooperative, No acute distress HEENT: Atraumatic, PERRLA Neck: Carotid [place] Lungs: Other (Severe inspiratory and expiratory wheezing) Cardiovascular: Normal S1, Normal S2 Abdomen: Normal bowel sounds Genitourinary: No Apparent Abnormalities Musculoskeletal: Normal sensory function, Normal motor function Skin: Dry, Intact Psych/Mental Status: Mental status NL, Mood NL Medications Current Medications Medications Dose Ordered Sig/Marcello Route Start Time Stop Time Status Last Admin Dose Admin Aspirin 81 mg DAILY PO 08/07/24 10:00 08/19/24 10:05 81 MG Tamsulosin HCl 0.4 mg QPM PO 08/07/24 18:00 08/19/24 17:22 0.4 MG Ondansetron HCl 4 mg Q4HP PRN IV 08/06/24 21:30 Acetaminophen 650 mg Q6HP PRN PO 08/06/24 21:30 Albuterol 2.5 mg Q4HP PRN NEB 08/07/24 12:00 08/15/24 22:25 2.5 MG Albuterol 2.5 mg Q6HWA NEB 08/07/24 12:00 08/19/24 20:12 2.5 MG Ipratropium [place] 0.5 mg Q6HWA NEB 08/07/24 12:00 08/19/24 20:12 0.5 MG Montelukast Sodium 10 mg HS PO 08/08/24 22:00 08/18/24 21:33 10 MG Alprazolam 0.25 mg Q12HP PRN PO 08/09/24 12:00 08/16/24 08:06 0.25 MG Hydralazine HCl 10 mg Q6HP PRN IV 08/09/24 12:00 08/11/24 06:15 10 MG Enteral Nutritional Formula 240 ml TIDWM PO 08/09/24 12:00 08/19/24 17:22 240 ML Budesonide 0.5 mg BID NEB 08/11/24 22:00 08/19/24 20:12 0.5 MG Azithromycin 500 mg DAILY PO 08/14/24 10:00 08/19/24 10:05 500 MG Guaifenesin 200 mg Q4HP PRN PO 08/15/24 11:00 08/15/24 11:11 200 MG Furosemide 40 mg DAILY PO 08/17/24 10:00 08/19/24 10:05 40 MG Potassium Chloride 10 meq DAILY PO 08/17/24 10:00 08/19/24 10:05 10 MEQ Methylprednisolone Sodium Succinate 60 mg BID IV 08/18/24 22:00 08/19/24 10:08 60 MG Laboratory Results Laboratory Tests 08/16/24 06:17 08/17/24 07:17 Urinalysis Test 08/07/24 20:44 Urine Color Light-yellow (Yellow) Urine Clarity Clear (Clear) Urine pH 6.5 (5.0-9.0) Urine Specific [place] 1.007 (1.001-1.035) Urine Protein Negative (Negative) Urine Ketones Negative (Negative) Urine Blood Negative /uL (Negative) Urine Nitrite Negative (Negative) Urine Bilirubin Negative (Negative) Urine Urobilinogen Normal mg/dL (Negative) Urine Leukocyte Esterase Negative /uL (Negative) Urine RBC 1 /hpf (0 - 3) Urine Microscopic WBC < 1 /HPF (0-3) Urine Squamous Epithelial Cells Few /hpf (<5) Urine Bacteria None seen /hpf (None Seen) Urine Glucose Normal mg/dL (Normal) Labs and/or images reviewed: Labs reviewed by me Assessment/Plan Assessment/Plan -acute on chronic hypoxic respiratory failure -COPD with exacerbation -history of prostate cancer -acute on chronic diastolic heart failure -BPH Plan: Continuing current management. Continuing with physical therapy. The patient was able to ambulate with physical therapy and had reoccurrence of some dyspnea. Continues to report having difficulty coughing up phlegm. -continue antibiotic therapy -continue IV diuresis -continue Pulmicort and DuoNebs. Continuing Mucomyst q.6 hours x4 doses. -continue O2 supplementation with oxygen and BiPAP as needed -physical therapy -patient continues to be unstable for transfer to [facility] and given acute respiratory failure with severe COPD exacerbation. -I will order a portable chest x-ray -feet lab in the morning Discussed plan of care with patient and his at bedside This medical document was created using an electronic medical record system with [employer] computerized dictation system. Although this document has been carefully reviewed, there may still be some phonetic and typographical errors. These areas are purely typographical due to imperfections of the software programs, and do not reflect any compromise in the patient's medical care.. Plan discussed with: Patient, Spouse My Orders Orders - MARCELLO GU MD Procedure Category Date Status Time Chest Portable XY 08/19/24 Resulted 14:34 Date of Service: Aug 19, 2024 Billing Provider: MARCELLO GU MD Common Visit Codes: [id number] INP/OBS CARE(HIGH) MARCELLO GU MD Aug 19, 2024 21:14"
--- NOTE | 2024-08-19 23:07 | DVHPN2 ---
Progress Note - Dictate Date Seen: Aug 19, 2024 Medical Necessity Reason Pt with a Central, PICC or Fol: Yes The following are medically ne: Griffin Catheter Reason for griffin catheter: Strict I&O Subjective Patient seen and examined at bedside. Remains on supplemental oxygen Overnight events reviewed. vital signs Vital Sign Date Time Temp Pulse Resp B/P (MAP) Pulse Ox O2 Delivery O2 Flow Rate FiO2 08/19/24 22:53 94 99 Facial BiPAP Mask 30 08/19/24 20:20 26 08/19/24 20:12 2.0 08/19/24 17:01 97.5 133/79 (97) 97.5 Total Intake and Output 08/18/24 08/18/24 08/19/24 15:00 23:00 07:00 Intake Total 50 ml 925 ml 600 ml Output Total 1700 ml 1500 ml Balance 50 ml -775 ml -900 ml medications Current Medications Medications Dose Ordered Sig/Marcello Route Start Time Stop Time Status Last Admin Dose Admin Aspirin 81 mg DAILY PO 08/07/24 10:00 08/19/24 10:05 81 MG Tamsulosin HCl 0.4 mg QPM PO 08/07/24 18:00 08/19/24 17:22 0.4 MG Ondansetron HCl 4 mg Q4HP PRN IV 08/06/24 21:30 Acetaminophen 650 mg Q6HP PRN PO 08/06/24 21:30 Albuterol 2.5 mg Q4HP PRN NEB 08/07/24 12:00 08/15/24 22:25 2.5 MG Albuterol 2.5 mg Q6HWA NEB 08/07/24 12:00 08/19/24 20:12 2.5 MG Ipratropium [place] 0.5 mg Q6HWA NEB 08/07/24 12:00 08/19/24 20:12 0.5 MG Montelukast Sodium 10 mg HS PO 08/08/24 22:00 08/19/24 21:56 10 MG Alprazolam 0.25 mg Q12HP PRN PO 08/09/24 12:00 08/16/24 08:06 0.25 MG Hydralazine HCl 10 mg Q6HP PRN IV 08/09/24 12:00 08/11/24 06:15 10 MG Enteral Nutritional Formula 240 ml TIDWM PO 08/09/24 12:00 08/19/24 17:22 240 ML Budesonide 0.5 mg BID NEB 08/11/24 22:00 08/19/24 20:12 0.5 MG Azithromycin 500 mg DAILY PO 08/14/24 10:00 08/19/24 10:05 500 MG Guaifenesin 200 mg Q4HP PRN PO 08/15/24 11:00 08/15/24 11:11 200 MG Furosemide 40 mg DAILY PO 08/17/24 10:00 08/19/24 10:05 40 MG Potassium Chloride 10 meq DAILY PO 08/17/24 10:00 08/19/24 10:05 10 MEQ Methylprednisolone Sodium Succinate 60 mg BID IV 08/18/24 22:00 08/19/24 21:59 60 MG objective Gen.: Patient lying in bed in no apparent distress. On supplemental oxygen. Head: Normocephalic, atraumatic. Eyes: EOMI/PERRLA. Ears: Normal hearing. Normal anatomy. Neck/trachea: Trachea midline, supple. Nose: Normal external anatomy. Mouth: Moist mucous membranes. Chest: Decreased air entry bilaterally. No wheezing or rhonchi. Cardiovascular: Positive S1, positive S2. Regular rate and rhythm. Abdomen: Positive bowel sounds in all 4 quadrants. Soft, non-tender, non- distended. : Deferred. Rectal: Deferred. Skin: Warm, dry. Intact. Extremities: 2+ radial pulses bilaterally. No lower extremity edema. Neuro: Awake, alert, oriented x3. No gross motor or sensory deficits. Cranial nerves II through XII intact. Gait not assessed. laboratory and microbiology Laboratory Tests 08/17/24 07:17 08/16/24 06:17 Test 08/17/24 07:17 Range/Units Serum Glucose 121 H 74-106 mg/dL Assessment/Plan Impression: Acute on chronic hypoxic respiratory failure Dependence on supplemental oxygen Acute COPD exacerbation Congestive heart failure Hypertension BPH Hx of prostate cancer Events: Remains on supplemental oxygen, 2 LPM NC Taper O2 as tolerated Chest x-ray reviewed, demonstrates bibasilar atelectasis, hazy opacities at the bases. Continue bronchodilators Continue IV steroids Continue antibiotics On Montelukast Incentive spirometry Diurese to euvolemia w/ Lasix Monitor renal function. Monitor electrolytes. Supplement as necessary. Labs and imaging reviewed. Rest of plan as noted below. Plan: Supplemental oxygen Titrate to keep O2 sats above 92%. Continue bronchodilators/Pulmicort Continue antibiotics IV steroids - Solu-Medrol to 60 mg BID Diurese to euvolemia w/ Lasix Monitor renal function. Monitor electrolytes. Supplement as necessary. Monitor ins and outs. DVT prophylaxis - Lovenox SC Prognosis: Guarded given patient's multiple co-morbidities. Rest of plan per hospitalist and other consultants. Thank you Dr Mara Reese for allowing me to participate in this patient's care. Further recommendations will depend on the patient's clinical course. Please do not hesitate to contact me if you have any questions or concerns. This medical document was created using an electronic medical record system with [employer] dictation system. Although these documentations are being carefully reviewed, there may still be some phonetic and typographical changes. The errors are purely typographical, due to imperfection on the software program, and do not reflect any compromise in the patient's medical care. Dietary Evaluation Review Comments: 1.Continue diet regime 2. Continue Ensure HP protein TID Expected Outcomes/Goals: 1. Pt will continue to meet >75% of estimated needs within 3-5 days Plan discussed with: Patient, Other (RN) AMELIE SHAH MD Aug 19, 2024 23:07
[2024-08-20] VITALS (17 sets, daily range): BP systolic 109–136; BP diastolic 76–82; PULSE 72–95; RESP 14–19; TEMP 97.3–98.1; O2SAT 96–100
[2024-08-20 06:48] LABS: Basophils # (auto) 0 10 ^3/uL (0-0.2); Basophils % (auto) 0.4 % (0.0-2.0); Eosinophils # (auto) 0 10 ^3/uL (0-0.8); Hematocrit 37.2 % (41.0-53.0); Hemoglobin 12.8 g/dL (13.5-17.5); Lymphocytes # (auto) 0.4 10 ^3/uL (0.4-5.4); Lymphocytes % (auto) 4.2 % (10.0-50.0); Mean Corpuscular Hgb Conc. 34.4 g/dL (32.0-36.0); Mean Corpuscular Volume 98.9 fL (80.0-100.0); Monocytes # (auto) 0.4 10 ^3/uL (0-1.3); Monocytes % (auto) 4.5 % (0.0-12.0); Neutrophils % (auto) 90.9 % (37.0-80.0); Platelet Count (auto) 193 10^3/uL (140-450); Red Blood Cells 3.76 10^6/uL (4.5-5.90); Red Cell Distribution Width 14.2 % (11.8-14.3); White Blood Cell 9.8 10^3/uL (4.4-10.8)
[2024-08-20 07:03] LABS: Potassium 4.4 mmol/L (3.5-5.1)
[2024-08-20 07:04] LABS: Anion Gap 5 (5-15); Calcium 9.3 mg/dL (8.7-10.4); Carbon Dioxide 31 mmol/L (20-31)
[2024-08-20 07:09] LABS: BUN/Creatinine Ratio 29.6 (10.0-20.0); Blood Urea Nitrogen 21 mg/dL (9-23)
[2024-08-20 07:10] LABS: Chloride 93 mmol/L (98-107); Glucose 126 mg/dL (74-106); Sodium 129 mmol/L (136-145)
--- NOTE | 2024-08-20 11:08 | DVHPN2 ---
Progress Note Date Seen: Aug 20, 2024 Medical Necessity Reason Pt with a Central, PICC or Fol: Yes The following are medically ne: Griffin Catheter Reason for griffin catheter: Strict I&O Subjective Patient reports: No new complaints Review of Systems: HEENT:Normal, CVS:Normal, RESPIRATORY:Normal, GI:Normal, :Normal, MSK:Normal, NEURO:Normal Objective vital signs Vital Sign Date Time Temp Pulse Resp B/P (MAP) Pulse Ox O2 Delivery O2 Flow Rate FiO2 08/20/24 10:00 96 Nasal Cannula* 2 08/20/24 09:01 138/70 08/20/24 09:00 97.6 88 19 97.6 Total Intake and Output 08/19/24 08/19/24 08/20/24 15:00 23:00 07:00 Intake Total 50 ml 625 ml 600 ml Output Total 1800 ml 900 ml Balance 50 ml -1175 ml -300 ml medications Current Medications Medications Dose Ordered Sig/Marcello Route Start Time Stop Time Status Last Admin Dose Admin Aspirin 81 mg DAILY PO 08/07/24 10:00 08/20/24 09:00 81 MG Tamsulosin HCl 0.4 mg QPM PO 08/07/24 18:00 08/19/24 17:22 0.4 MG Ondansetron HCl 4 mg Q4HP PRN IV 08/06/24 21:30 Acetaminophen 650 mg Q6HP PRN PO 08/06/24 21:30 Albuterol 2.5 mg Q4HP PRN NEB 08/07/24 12:00 08/15/24 22:25 2.5 MG Albuterol 2.5 mg Q6HWA NEB 08/07/24 12:00 08/20/24 06:24 2.5 MG Ipratropium [place] 0.5 mg Q6HWA NEB 08/07/24 12:00 08/20/24 06:24 0.5 MG Montelukast Sodium 10 mg HS PO 08/08/24 22:00 08/19/24 21:56 10 MG Alprazolam 0.25 mg Q12HP PRN PO 08/09/24 12:00 08/16/24 08:06 0.25 MG Hydralazine HCl 10 mg Q6HP PRN IV 08/09/24 12:00 08/11/24 06:15 10 MG Enteral Nutritional Formula 240 ml TIDWM PO 08/09/24 12:00 08/20/24 08:00 240 ML Budesonide 0.5 mg BID NEB 08/11/24 22:00 08/20/24 06:24 0.5 MG Azithromycin 500 mg DAILY PO 08/14/24 10:00 08/20/24 09:01 500 MG Guaifenesin 200 mg Q4HP PRN PO 08/15/24 11:00 08/15/24 11:11 200 MG Furosemide 40 mg DAILY PO 08/17/24 10:00 08/20/24 09:01 40 MG Potassium Chloride 10 meq DAILY PO 08/17/24 10:00 08/20/24 09:01 10 MEQ Methylprednisolone Sodium Succinate 60 mg BID IV 08/18/24 22:00 08/20/24 08:59 60 MG Examination: GENERAL:Normal, HEENT:Normal, NECK:Normal, LUNGS:Normal, LUNGS:Abnormal (on oxygen), CVS:Normal, ABDOMEN:Normal, MSK:Normal, SKIN:Normal, NEURO:Normal, :Normal laboratory and microbiology Laboratory Tests 08/20/24 06:30 Test 08/20/24 06:30 Range/Units Serum Glucose 126 H 74-106 mg/dL Problem List/Assessment/Plan Problem List/Assessment/Plan #1 copd with exacerbation: steroids, bronchodilators #2 ?pneumonia- gram positive/neg: antibiotics #3 acute on chronic diastolic heart failure: lasix, xray #4 bph #5 h/o prostate cancer: dc griffin #6 acute resp failure: on oxygen/bipap unstable for transfer advance care planning- full code- time spent 19 mins long dw daughter Frances Plan discussed with: Patient, Daughter Dietary Evaluation Review Comments: 1.Continue diet regime 2. Continue Ensure HP protein TID Expected Outcomes/Goals: 1. Pt will continue to meet >75% of estimated needs within 3-5 days Date of Service: Aug 20, 2024 Billing Provider: MONICA DODGE MD Common Visit Codes: [id number] INP/OBS CARE(HIGH) MONICA DODGE MD Aug 20, 2024 11:08
[2024-08-20] MEDS: methylPREDNISolone SOD SUCC 125 MG/2 ML VL IV SCH (21:29)
[2024-08-21] VITALS (18 sets, daily range): BP systolic 120–145; BP diastolic 56–78; PULSE 71–98; RESP 16–20; TEMP 97.3–99.1; O2SAT 91–100
[2024-08-21 07:37] LABS: Anion Gap 4 (5-15); Potassium 4.9 mmol/L (3.5-5.1)
[2024-08-21 07:38] LABS: Calcium 9.7 mg/dL (8.7-10.4)
[2024-08-21 07:43] LABS: BUN/Creatinine Ratio 25.7 (10.0-20.0); Blood Urea Nitrogen 19 mg/dL (9-23)
[2024-08-21 07:44] LABS: Magnesium 2.2 mg/dL (1.6-2.6)
[2024-08-21 07:46] LABS: Carbon Dioxide 33 mmol/L (20-31); Chloride 92 mmol/L (98-107); Glucose 116 mg/dL (74-106); Sodium 129 mmol/L (136-145)
[2024-08-21] MEDS: FUROSEMIDE 20 MG TAB PO SCH (08:49)
--- NOTE | 2024-08-21 10:07 | DVHPN2 ---
Progress Note Date Seen: Aug 21, 2024 Medical Necessity Reason Pt with a Central, PICC or Fol: No Subjective Patient reports: No new complaints Review of Systems: HEENT:Normal, CVS:Normal, RESPIRATORY:Normal, GI:Normal, :Normal, MSK:Normal, NEURO:Normal Objective vital signs Vital Sign Date Time Temp Pulse Resp B/P (MAP) Pulse Ox O2 Delivery O2 Flow Rate FiO2 08/21/24 08:49 132/74 08/21/24 06:50 77 18 100 08/21/24 06:44 Nasal Cannula 2.0 08/21/24 06:44 28 08/21/24 05:00 98.3 98.3 Total Intake and Output 08/20/24 08/20/24 08/21/24 15:00 23:00 07:00 Intake Total 725 ml 800 ml Output Total 1100 ml 500 ml Balance -375 ml 300 ml medications Current Medications Medications Dose Ordered Sig/Marcello Route Start Time Stop Time Status Last Admin Dose Admin Aspirin 81 mg DAILY PO 08/07/24 10:00 08/21/24 08:48 81 MG Tamsulosin HCl 0.4 mg QPM PO 08/07/24 18:00 08/20/24 17:28 0.4 MG Ondansetron HCl 4 mg Q4HP PRN IV 08/06/24 21:30 Acetaminophen 650 mg Q6HP PRN PO 08/06/24 21:30 Albuterol 2.5 mg Q4HP PRN NEB 08/07/24 12:00 08/15/24 22:25 2.5 MG Albuterol 2.5 mg Q6HWA NEB 08/07/24 12:00 08/21/24 06:39 2.5 MG Ipratropium [place] 0.5 mg Q6HWA NEB 08/07/24 12:00 08/21/24 06:39 0.5 MG Montelukast Sodium 10 mg HS PO 08/08/24 22:00 08/20/24 21:28 10 MG Alprazolam 0.25 mg Q12HP PRN PO 08/09/24 12:00 08/16/24 08:06 0.25 MG Hydralazine HCl 10 mg Q6HP PRN IV 08/09/24 12:00 08/11/24 06:15 10 MG Enteral Nutritional Formula 240 ml TIDWM PO 08/09/24 12:00 08/21/24 08:00 240 ML Budesonide 0.5 mg BID NEB 08/11/24 22:00 08/21/24 06:39 0.5 MG Azithromycin 500 mg DAILY PO 08/14/24 10:00 08/21/24 08:48 500 MG Guaifenesin 200 mg Q4HP PRN PO 08/15/24 11:00 08/15/24 11:11 200 MG Potassium Chloride 10 meq DAILY PO 08/17/24 10:00 08/21/24 08:48 10 MEQ Methylprednisolone Sodium Succinate 40 mg BID IV 08/20/24 22:00 08/21/24 08:44 40 MG Examination: GENERAL:Normal, HEENT:Normal, NECK:Normal, LUNGS:Normal, LUNGS:Abnormal (on oxygen), CVS:Normal, ABDOMEN:Normal, MSK:Normal, SKIN:Normal, NEURO:Normal, :Normal laboratory and microbiology Laboratory Tests 08/21/24 06:51 08/20/24 06:30 Test 08/21/24 06:51 Range/Units Serum Glucose 116 H 74-106 mg/dL Problem List/Assessment/Plan Problem List/Assessment/Plan #1 copd with exacerbation: steroids, bronchodilators #2 ?pneumonia- gram positive/neg: antibiotics #3 acute on chronic diastolic heart failure: dc lasix, xray #4 bph #5 h/o prostate cancer: dc griffin #6 acute resp failure: on oxygen/bipap advance care planning- full code- time spent 19 mins long dw daughter Frances Plan discussed with: Patient My Orders My Orders Orders - MONICA DODGE MD Procedure Category Date Status Time Methylprednisolone PHA 08/20/24 In Process Sod Succ (Solu Medrol 22:00 D/C [place] SILVIA 08/20/24 In Process 11:00 Dietary Evaluation Review Comments: 1.Continue diet regime 2. Continue Ensure HP protein TID Expected Outcomes/Goals: 1. Pt will continue to meet >75% of estimated needs within 3-5 days Date of Service: Aug 21, 2024 Billing Provider: MONICA DODGE MD Common Visit Codes: [id number] INP/OBS CARE(HIGH) MONICA DODGE MD Aug 21, 2024 10:07
[2024-08-22] VITALS (14 sets, daily range): BP systolic 114–133; BP diastolic 61–75; PULSE 73–104; RESP 16–22; TEMP 97.8–98.7; O2SAT 94–100
[2024-08-22 07:13] LABS: Anion Gap 5 (5-15); Potassium 4.4 mmol/L (3.5-5.1)
[2024-08-22 07:14] LABS: Calcium 9.1 mg/dL (8.7-10.4)
[2024-08-22 07:19] LABS: BUN/Creatinine Ratio 23.6 (10.0-20.0); Blood Urea Nitrogen 17 mg/dL (9-23); Glucose 87 mg/dL (74-106)
[2024-08-22 07:27] LABS: Carbon Dioxide 31 mmol/L (20-31); Chloride 94 mmol/L (98-107); Sodium 130 mmol/L (136-145)
[2024-08-22] MEDS: predniSONE 20 MG TAB PO SCH (09:50)
--- NOTE | 2024-08-22 10:42 | DVHPN2 ---
Progress Note Date Seen: Aug 22, 2024 Medical Necessity Reason Pt with a Central, PICC or Fol: No Subjective Patient reports: No new complaints Review of Systems: HEENT:Normal, CVS:Normal, RESPIRATORY:Normal, GI:Normal, :Normal, MSK:Normal, NEURO:Normal Objective vital signs Vital Sign Date Time Temp Pulse Resp B/P (MAP) Pulse Ox O2 Delivery O2 Flow Rate FiO2 08/22/24 08:36 97.8 78 16 114/75 (88) 95 97.8 08/22/24 08:00 Nasal Cannula* 2 28 Total Intake and Output 08/21/24 08/21/24 08/22/24 15:00 23:00 07:00 Intake Total 750 ml 400 ml Output Total 901 ml 800 ml Balance -151 ml -400 ml medications Current Medications Medications Dose Ordered Sig/Marcello Route Start Time Stop Time Status Last Admin Dose Admin Aspirin 81 mg DAILY PO 08/07/24 10:00 08/22/24 09:51 81 MG Tamsulosin HCl 0.4 mg QPM PO 08/07/24 18:00 08/21/24 17:53 0.4 MG Ondansetron HCl 4 mg Q4HP PRN IV 08/06/24 21:30 Acetaminophen 650 mg Q6HP PRN PO 08/06/24 21:30 Albuterol 2.5 mg Q4HP PRN NEB 08/07/24 12:00 08/15/24 22:25 2.5 MG Albuterol 2.5 mg Q6HWA NEB 08/07/24 12:00 08/22/24 06:23 2.5 MG Ipratropium [place] 0.5 mg Q6HWA NEB 08/07/24 12:00 08/22/24 06:22 0.5 MG Montelukast Sodium 10 mg HS PO 08/08/24 22:00 08/21/24 21:30 10 MG Alprazolam 0.25 mg Q12HP PRN PO 08/09/24 12:00 08/16/24 08:06 0.25 MG Hydralazine HCl 10 mg Q6HP PRN IV 08/09/24 12:00 08/11/24 06:15 10 MG Enteral Nutritional Formula 240 ml TIDWM PO 08/09/24 12:00 08/22/24 08:00 240 ML Budesonide 0.5 mg BID NEB 08/11/24 22:00 08/22/24 06:22 0.5 MG Azithromycin 500 mg DAILY PO 08/14/24 10:00 08/22/24 09:50 500 MG Guaifenesin 200 mg Q4HP PRN PO 08/15/24 11:00 08/15/24 11:11 200 MG Examination: GENERAL:Normal, HEENT:Normal, NECK:Normal, LUNGS:Normal, CVS:Normal, ABDOMEN:Normal, MSK:Normal, SKIN:Normal, NEURO:Normal, :Normal laboratory and microbiology Laboratory Tests 08/22/24 06:21 08/20/24 06:30 Test 08/22/24 06:21 Range/Units Serum Glucose 87 74-106 mg/dL Problem List/Assessment/Plan Problem List/Assessment/Plan #1 copd with exacerbation: steroids, bronchodilators #2 ?pneumonia- gram positive/neg: antibiotics #3 acute on chronic diastolic heart failure: dc lasix, xray #4 bph #5 h/o prostate cancer: dc griffin #6 acute resp failure: on oxygen/bipap advance care planning- full code- time spent 19 mins long dw daughter Frances Plan discussed with: Patient My Orders My Orders Orders - MONICA DODGE MD Procedure Category Date Status Time Prednisone Tablet PHA 08/23/24 Transmitted 10:00 * [facility] CONS 08/22/24 Transmitted Consult Discontinue Tele SILVIA 08/22/24 Verified 10:41 Transfer Orders XFER 08/22/24 Verified 10:41 Dietary Evaluation Review Comments: 1.Continue diet regime 2. Continue Ensure HP protein TID Expected Outcomes/Goals: 1. Pt will continue to meet >75% of estimated needs within 3-5 days Date of Service: Aug 22, 2024 Billing Provider: MONICA DODGE MD Common Visit Codes: [id number] INP/OBS CARE(HIGH) MONICA DODGE MD Aug 22, 2024 10:42
[2024-08-23] VITALS (11 sets, daily range): BP systolic 108–132; BP diastolic 55–87; PULSE 76–93; RESP 16–20; TEMP 97.3–97.9; O2SAT 93–99
[2024-08-23] MEDS: predniSONE 20 MG TAB PO SCH (09:28)
--- NOTE | 2024-08-23 11:18 | DVHDS2 ---
Discharge Summary Date of Admission Aug 06, 2024 at 21:30 Date of Discharge: Aug 23, 2024 Labs/Diagnostic Data: Laboratory Results Test 08/22/24 06:21 08/21/24 06:51 08/20/24 06:30 08/14/24 06:54 Sodium Level 130 mmol/L (136-145) Potassium Level 4.4 mmol/L (3.5-5.1) Chloride Level 94 mmol/L (98-107) Carbon Dioxide Level 31 mmol/L (20-31) Anion Gap 5 (5-15) Blood Urea Nitrogen 17 mg/dL (9-23) Creatinine 0.72 mg/dL (0.700-1.30) Glomerular Filtration Rate Calc 87 mL/min (>90) BUN/Creatinine Ratio 23.6 (10.0-20.0) Serum Glucose 87 mg/dL (74-106) Calcium Level 9.1 mg/dL (8.7-10.4) Magnesium Level 2.2 mg/dL (1.6-2.6) White Blood Count 9.8 10^3/uL (4.4-10.8) Red Blood Count 3.76 10^6/uL (4.5-5.90) Hemoglobin 12.8 g/dL (13.5-17.5) Hematocrit 37.2 % (41.0-53.0) Mean Corpuscular Volume 98.9 fL (80.0-100.0) Mean Corpuscular Hemoglobin 34.0 pg (28.0-32.0) Mean Corpuscular Hemoglobin Concent 34.4 g/dL (32.0-36.0) Red Cell Distribution Width 14.2 % (11.8-14.3) Platelet Count 193 10^3/uL (140-450) Mean Platelet Volume 6.9 fL (6.9-10.8) Neutrophils (%) (Auto) 90.9 % (37.0-80.0) Lymphocytes (%) (Auto) 4.2 % (10.0-50.0) Monocytes (%) (Auto) 4.5 % (0.0-12.0) Eosinophils (%) (Auto) 0.0 % (0.0-7.0) Basophils (%) (Auto) 0.4 % (0.0-2.0) Neutrophils # (Auto) 9.0 10 ^3/uL (1.6-8.6) Lymphocytes # (Auto) 0.4 10 ^3/uL (0.4-5.4) Monocytes # (Auto) 0.4 10 ^3/uL (0-1.3) Eosinophils # (Auto) 0 10 ^3/uL (0-0.8) Basophils # (Auto) 0 10 ^3/uL (0-0.2) Nucleated Red Blood Cells 0.0 % Total Bilirubin 0.9 mg/dL (0.2-1.0) Aspartate Amino Transferase (AST) 19 U/L (13-40) Alanine Aminotransferase (ALT) 21 U/L (7-40) Alkaline Phosphatase 50 U/L (46-116) Total Protein 5.3 g/dL (5.7-8.2) Albumin 3.3 g/dL (3.2-4.8) Test 08/12/24 17:13 08/09/24 02:50 08/07/24 20:44 08/06/24 22:30 Erythrocyte Sedimentation Rate 10 mm/hr (0-20) C-Reactive Protein High Sensitivity 0.07 mg/dL (<1.0) Blood Gas Specimen Type Arterial Blood Gas Sample Site Right radial Blood Gas Patient Temperature 37.0 Arterial Blood Date Drawn [id number] Arterial Blood pH 7.438 (7.350-7.450) Arterial Blood Partial Pressure CO2 41.2 mmHg (35.0-48.0) Arterial Blood Partial Pressure O2 85.7 mmHg (83.0-108.0) Arterial Blood HCO3 27.2 mmol/L (21.0-28.0) Arterial Blood Oxygen Saturation 95.6 % (94.0-98.0) Arterial Blood Base Excess 2.8 mmol/L (-2.0-3.0) Arterial Blood Oxyhemoglobin 94.7 % (94.0-98.0) Arterial Blood Carboxyhemoglobin 0.6 % (0.5-1.5) Arterial Blood Methemoglobin 0.3 % (0.0-1.5) Travis Test Modified Blood Gas Total Hemoglobin 14.00 g/dL (13.5-17.5) Blood Gas Liter Flow 4.00 Blood Gas Modality Nasal cannula FiO2 % 36.0 Urine Color Light-yellow (Yellow) Urine Clarity Clear (Clear) Urine pH 6.5 (5.0-9.0) Urine Specific [place] 1.007 (1.001-1.035) Urine Protein Negative (Negative) Urine Ketones Negative (Negative) Urine Blood Negative /uL (Negative) Urine Nitrite Negative (Negative) Urine Bilirubin Negative (Negative) Urine Urobilinogen Normal mg/dL (Negative) Urine Leukocyte Esterase Negative /uL (Negative) Urine RBC 1 /hpf (0 - 3) Urine Microscopic WBC < 1 /HPF (0-3) Urine Squamous Epithelial Cells Few /hpf (<5) Urine Bacteria None seen /hpf (None Seen) Urine Glucose Normal mg/dL (Normal) Influenza Type A Antigen Negative (Negative) Influenza Type B Antigen Negative (Negative) SARS-CoV-2 Antigen (Rapid) Negative (NEGATIVE) Test 08/06/24 18:31 D-Dimer, Quantitative 0.25 mg/L FEU (0.0-0.49) B-Type Natriuretic Peptide 89.10 pg/mL (0-100) Other Laboratory Tests 08/22/24 06:21 08/20/24 06:30 Brief Hx & Hospital Course: SEE ATTACHED NOTE Condition at Discharge: Fair Final Diagnosis/Problems List chf Discharge Disposition: Home Discharge Instruct/Medications Diet: Cardiac 2g Na,low cholest Activity: No Restrictions, As Tolerated Follow Up/Referral: fu with pcp in 1 wk Medications: RESUME HOME MEDS SCRIPT TO PHARMACY Discharge Statement: "Patient was advised to return to the ER or call 911 if any headaches, dizziness, shortness of breath, chest pain, abdominal pain, bleeding, fevers, or worsening of medical condition. Patient was counseled about treatment plan, medications, possible side effects, patientverbalized understanding. All questions were answered to the best of my ability. This discharge took greater then 30 minutes in planning, reviewing documentation, counseling the patient, and discussing with other team members." ASSESSMENT ASSESSMENT Assessment chf Date of Service: Aug 23, 2024 Billing Provider: MONICA DODGE MD Common Visit Codes: [id number] DISCH DAY >30min MONICA DODGE MD Aug 23, 2024 11:18
[2024-08-23] MEDS ORDERED: PRED10TA PO (11:20)
[2024-08-23] MEDS ORDERED: PRED20TA2 PO (11:20)
--- NOTE | 2024-08-23 11:41 | DVHDS ---
DATE OF DISCHARGE: 08/23/2024 HISTORY OF PRESENT ILLNESS: The patient is an 89-year-old gentleman who was admitted with history of increasing shortness of breath and has history of asthma, previous prostate cancer and hypertension. HOSPITAL COURSE: The patient had a CT angiography that showed no pulmonary embolism. The patient had a chest x-ray that showed no acute infiltrates. The patient's tests were COVID-19 and influenza negative. The patient was initially diuresed with intravenous Lasix, placed on antibiotics as well as given steroids. The patient was in acute respiratory failure. The patient's symptoms have now improved and he has been breathing well on room air. He will be discharged to resume his home medications as well as to be on prednisone 20 mg daily for 5 days, followed by 10 mg daily for 5 days. Echocardiogram done showed ejection fraction of 60%. I have discussed the plan of care with his daughter Shawanda as well. The patient will have home physical therapy as well as a home shower chair. FINAL DIAGNOSES: Therefore, * Acute respiratory failure. * Chronic obstructive pulmonary disease exacerbation. * Questionable acute diastolic heart failure. * Questionable pneumonia, gram-positive, gram-negative. * Benign prostatic hypertrophy. * History of prostate cancer. Time spent in discharge planning and review of plan with the patient and family and nursing was 41 minutes. MD JACQUELINE Packer/PING TID: [id number] RECEIPT: [id number]
== END 2024-08-23 13:15 | disposition home health service (06) | DRG 177 ==
LOC: ER 16:11 → OVERFLOW 21:30 → EAST 08-07 01:29 → TELE-EAST 08-08 12:30 → OVERFLOW 08-21 15:16 → EAST 08-21 15:25 → OVERFLOW 08-22 13:02 → TELE-EAST 08-22 13:12
PROVIDERS: ADMIT Internal Medicine; ATTEND Internal Medicine
PROC: 5A09357 Assistance with Respiratory Ventilation, Less than 24 Consecutive Hours, Continuous Positive Airway Pressure (ICD-10-PCS; principal; 2024-08-09)
PROC: 5A09357 Assistance with Respiratory Ventilation, Less than 24 Consecutive Hours, Continuous Positive Airway Pressure (ICD-10-PCS; 2024-08-10)
PROC: 5A09357 Assistance with Respiratory Ventilation, Less than 24 Consecutive Hours, Continuous Positive Airway Pressure (ICD-10-PCS; 2024-08-19)
PROC: 5A09357 Assistance with Respiratory Ventilation, Less than 24 Consecutive Hours, Continuous Positive Airway Pressure (ICD-10-PCS; 2024-08-20)
DX: J15.69 Pneumonia due to other Gram-negative bacteria (principal); I50.33 Acute on chronic diastolic (congestive) heart failure; J96.21 Acute and chronic respiratory failure with hypoxia; J44.1 Chronic obstructive pulmonary disease with (acute) exacerbation; J45.901 Unspecified asthma with (acute) exacerbation; J15.9 Unspecified bacterial pneumonia; J98.4 Other disorders of lung; Z20.822 Contact with and (suspected) exposure to COVID-19; N40.0 Benign prostatic hyperplasia without lower urinary tract symptoms; I11.0 Hypertensive heart disease with heart failure; Z83.3 Family history of diabetes mellitus; Z85.46 Personal history of malignant neoplasm of prostate; Z99.81 Dependence on supplemental oxygen; Z79.899 Other long term (current) drug therapy
CPT/HCPCS: 36415; 36600; 71045; 71275; 80048; 80053; 81001; 82805; 83735; 83880; 85025; 85379; 85652; 86141; 87426; 87804; 93005; 93306; 94640; 94660; 97110; 97116; 97163; 97530; 99291; G0378

== ENCOUNTER 2024-10-20 06:04 | Inpatient (IN) | payer MEDICARE, OTHER ==
[~2024-10-20] VITALS: Ht 167.6 cm; Wt 68.5 kg
[2024-10-20] VITALS (7 sets, daily range): BP systolic 114–129; BP diastolic 60–75; PULSE 65–72; RESP 14–20; TEMP 97–99.8; O2SAT 94–99
[~2024-10-20 06:04] MED LIST changes: +PRED10TA PO; +PRED20TA2 PO
--- NOTE | 2024-10-20 06:49 | ED.PDOC ---
History of Present Illness HPI Comments 89 year old male presents to the ED via EMS with a chief complaint of syncopal episode onset today (10/20/24). Patient states he went to the restroom, got up, felt dizzy, weak and felt like he was going to experience syncopal episode, sat down and called 911. Last night, patient was taking a shower began experiencing dizziness, weakness, try to get out of the shower and hold onto towel pole when it broke, he fell,landing on back and hitting his head. Upon EMS arrival BP was 148 systolic, orthostat was 115 systolic, blood sugar was 84. PMHx HTN, COPD, asthma, cancer. Denies chest pain, shortness of breath, nausea, vomiting, diarrhea, abdominal pain, fevers, chills. No other symptoms or modifying factors present at this time. Chief Complaint: Syncope Time Seen by MD: 06:20 Primary Care Provider: LIO Reviewed Notes: Medications, Allergies Allergies: Coded Allergies: NO KNOWN ALLERGIES (Unverified , 07/17/20) Home Meds Active Scripts Prednisone (Prednisone) 20 Mg Tab, 20 MG PO QAM for 5 Days, #10 MG Prov:MONICA DODGE MD 08/23/24 Prednisone (Prednisone) 10 Mg Tab, 10 MG PO QAM for 5 Days, #5 MG Prov:MONICA DODGE MD 08/23/24 Furosemide (Lasix) 20 Mg Tb, 1 TAB PO DAILY for 7 Days, #7 TAB 1 Refill Prov:ANDRZEJ MALDONADO MD 06/10/24 Ipratropium Riparius (Ipratropium Riparius) 0.02 % Paz, 0.5 % HHN TID PRN, #120 ML Prov:GUILLERMO CARPENTER 04/23/24 Ciprofloxacin Hcl (Ciprofloxacin Hcl) 500 Mg Tab, 500 MG PO Q12HR for 7 Days, #14 MG Prov:AGUSTIN VALLEJO MD 07/20/21 Oxymetazoline HCl (Afrin Nasal [place]) 0.05 % Spr, 0.05 % NA BID for 2 Days, #2 SPRAYS Prov:ANNE MARIE RING MD 05/24/21 Reported Medications Multiple Vitamin (Multivitamins) Cap, 1 CAP PO DAILY, #30 CAP 3 Refills 07/19/20 Aspirin (Aspir-Low) 81 Mg Tab, 81 MG PO DAILY for 30 Days, MG 07/19/20 Albuterol Sulfate (VENTOLIN MDI) 90 Mcg Ih, 180 MCG IN Q4HPRN PRN for SHORTNESS OF BREATH for 30 Days, MCG 07/19/20 Tiotropium Riparius Monohydrate (Spiriva Respimat) 2.5 Mcg/Act Spr, 2.5 MCG IN DAILY, SPRAY 07/19/20 Fluticasone-Salmeterol (Advair Diskus 500/50) 1 Puff Ih, 1 PUFF INH BID, #1 INHALER 5 Refills 07/19/20 Montelukast Sodium (Singulair) 5 Mg Chw, 10 MG PO HS, TAB.CHEW 07/19/20 Nitrofurantoin Monohydrate Mac (Macrobid) 100 Mg Cap, 100 MG PO BID, CAP 07/19/20 Tamsulosin Hcl (Flomax) 0.4 Mg Cap, 1 CAP PO DAILY, #90 CAP 3 Refills 07/19/20 Prednisone (Prednisone) 10 Mg Ritesh, 10 MG PO DAILY, PACK 07/19/20 Information Source: Patient, Emergency Med Personnel Mode of Arrival: EMS Severity: Moderate Timing: Hours Duration: Since onset Prehospital treatment: None Past Medical History PAST MEDICAL HISTORY: Asthma, Cancer, COPD, HTN Surgical History: Denies all surgeries Family History Family History: Reviewed,noncontributory to illness Social History Smoker: Non-Smoker Alcohol: Occasionally Drugs: Denies Drug Use Lives In: Home Constitutional: reports: weakness; denies: chills, diaphoresis, fatigue, fever, malaise, sweats, others EENTM: denies: blurred vision, double vision, ear bleeding, ear discharge, ear drainage, ear pain, ear ringing, eye pain, eye redness, hearing loss, mouth pain, mouth swelling, nasal discharge, nose bleeding, nose congestion, nose pain, photophobia, tearing, throat pain, throat swelling, voice changes, others Respiratory: denies: cough, hemoptysis, orthopnea, SOB at rest, shortness of breath, SOB with excertion, stridor, wheezing, others Cardiovascular: denies: chest pain, dizzy spells, diaphoresis, Dyspnea on exertion, edema, irregular heart beat, left arm pain, lightheadedness, palpitations, PND, syncope, others Gastrointestinal: denies: abdomen distended, abdominal pain, blood streaked bowels, constipated, diarrhea, dysphagia, difficulty swallowing, hematemesis, melena, nausea, poor appetite, poor fluid intake, rectal bleeding, rectal pain, vomiting, others Genitourinary: denies: burning, dysuria, flank pain, frequency, hematuria, incontinence, penile discharge, penile sore, pain, testicle pain, testicle swelling, urgency, others Neurological: reports: dizziness, weakness, others (syncope); denies: fainting, headache, left sided numbness, left sided weakness, numbness, paresthesia, pre- existing deficit, right sided numbness, right sided weakness, seizure, speech problems, tingling, tremors Musculoskeletal: denies: back pain, gout, joint pain, joint swelling, muscle pain, muscle stiffness, neck pain, others Integumetry: denies: bruises, change in color, change in hair/nails, dryness, laceration, lesions, lumps, rash, wounds, others Allergic/Immunocompromised: denies: Difficulty Healing, Frequent Infections, Hives, Itching, others Hematologic/Lymphatic: denies: anemia, blood clots, easy bleeding, easy bruising, swollen glands, others Endocrine: denies: excessive hunger, excessive sweating, excessive thirst, excessive urination, flushing, intolerance to cold, intolerance to heat, unexplained weight gain, unexplained weight loss, others Psychiatric: denies: anxiety, bipolar disorder, depression, hopeless, panic disorder, schizophrenia, sleepless, suicidal, others All Other Systems: Reviewed and Negative Physical Exam General Appearance: Moderate Distress, Normal HEENT: Normal ENT Inspection, Pharynx Normal, TMs Normal Neck: Full Range of Motion, Non-Tender, Normal, Normal Inspection Respiratory: Accessory Muscle Use, Chest Non-Tender, Respiratory Distress, Wheezing Cardiovascular: No Edema, No JVD, No Murmur, No Gallop, Normal Peripheral Pulses, Regular Rate/Rhythm Breast Exam: Deferred Gastrointestinal: No Organomegaly, Non Tender, No Pulsatile Mass, Normal Bowel Sounds, Soft Genitalia: Deferred Pelvic: Deferred Rectal: Deferred Extremities: No calf tenderness, Normal capillary refill, Normal inspection, N ormal range of motion, Non-tender, No pedal edema Musculoskeletal : Apperance: Normal Neurologic: Alert, fine sander II-XII nml as Tested, No Motor Deficits, Normal Affect, Normal Mood, No Sensory Deficits Cerebellar Function: NOT DONE Reflexes: NOT DONE Skin: Dry, Normal Color, Warm Peripheral Pulses: 3+ Radial (R), 3+ Radial (L) Lymphatic: No Adenopathy Was a procedure done? Was a procedure done?: No EKG EKG : Pulse Rate (adult): 75 Cardiac Rhythm: NSR (75 bpm) Differential Dx Considerations may include: CHF Electrolyte imbalance X-Ray, Labs, Meds, VS Vital Signs Date Time Temp Pulse Resp B/P (MAP) Pulse Ox O2 Delivery O2 Flow Rate FiO2 10/20/24 09:12 74 13 129/75 10/20/24 08:42 79 15 125/78 10/20/24 07:35 99.8 78 15 138/56 (83) 99 99.8 10/20/24 07:35 Room Air* 0 21 10/20/24 07:26 75 10/20/24 07:14 16 100 Nasal Cannula* 2 28 10/20/24 06:12 75 10/20/24 06:04 98.4 76 25 138/72 (94) 100 98.4 Lab Test 10/20/24 08:08 10/20/24 06:45 Range/Units Troponin I High Sensitivity 18 17 </=54 ng/L C-Reactive Protein High Sensitivity 0.18 <1.0 mg/dL White Blood Count 8.6 4.4-10.8 10^3/uL Red Blood Count 3.90 L 4.5-5.90 10^6/uL Hemoglobin 12.8 L 13.5-17.5 g/dL Hematocrit 38.8 L 41.0-53.0 % Mean Corpuscular Volume 99.6 80.0-100.0 fL Mean Corpuscular Hemoglobin 32.8 H 28.0-32.0 pg Mean Corpuscular Hemoglobin Concent 32.9 32.0-36.0 g/dL Red Cell Distribution Width 16.5 H 11.8-14.3 % Platelet Count 178 140-450 10^3/uL Mean Platelet Volume 7.7 6.9-10.8 fL Neutrophils (%) (Auto) 72.9 37.0-80.0 % Lymphocytes (%) (Auto) 16.4 10.0-50.0 % Monocytes (%) (Auto) 8.8 0.0-12.0 % Eosinophils (%) (Auto) 1.4 0.0-7.0 % Basophils (%) (Auto) 0.5 0.0-2.0 % Neutrophils # (Auto) 6.3 1.6-8.6 10 ^3/uL Lymphocytes # (Auto) 1.4 0.4-5.4 10 ^3/uL Monocytes # (Auto) 0.8 0-1.3 10 ^3/uL Eosinophils # (Auto) 0.1 0-0.8 10 ^3/uL Basophils # (Auto) 0 0-0.2 10 ^3/uL Nucleated Red Blood Cells 0.1 % Sodium Level 140 136-145 mmol/L Potassium Level 4.2 3.5-5.1 mmol/L Chloride Level 105 98-107 mmol/L Carbon Dioxide Level 27 20-31 mmol/L Anion Gap 8 5-15 Blood Urea Nitrogen 13 9-23 mg/dL Creatinine 0.87 0.700-1.30 mg/dL Glomerular Filtration Rate Calc 82 >90 mL/min BUN/Creatinine Ratio 14.9 10.0-20.0 Serum Glucose 94 74-106 mg/dL Calcium Level 9.7 8.7-10.4 mg/dL Current Medications Medications (Trade) Dose Ordered Sig/Marcello Route Start Time Stop Time Status Last Admin Magnesium Sulfate/ Dextrose 100 ml @ 100 mls/hr ONCE ONCE IV 10/20/24 06:30 10/20/24 07:29 DC 10/20/24 07:26 Albuterol (Ventolin Medneb) 5 mg ONCE ONCE NEB 10/20/24 06:30 10/20/24 06:31 DC 10/20/24 07:26 Ipratropium Riparius (Atrovent Medneb) 0.5 mg ONCE ONCE NEB 10/20/24 06:30 10/20/24 06:31 DC 10/20/24 07:26 Sodium Chloride 1,000 ml @ 1,000 mls/hr Q1H ONCE IV 10/20/24 06:30 10/20/24 07:29 DC 10/20/24 07:28 Methylprednisolone Sodium Succinate (Solu Medrol) 125 mg ONCE ONCE IV 10/20/24 06:30 10/20/24 06:31 DC 10/20/24 07:26 Ceftriaxone Sodium 50 ml @ 100 mls/hr ONCE ONCE IV 10/20/24 07:30 10/20/24 07:59 DC 10/20/24 08:19 Azithromycin 250 ml @ 125 mls/hr ONCE ONCE IV 10/20/24 07:30 10/20/24 09:29 DC 10/20/24 08:35 Morphine Sulfate 2 mg ONCE ONCE IV 10/20/24 08:30 10/20/24 08:31 DC 10/20/24 08:42 Ondansetron HCl (Zofran) 4 mg ONCE ONCE IV 10/20/24 08:30 10/20/24 08:31 DC 10/20/24 08:42 Patient alert. Possible syncope. Falling frequently. Placed on oxygen. Shortness a breath. Was given steroid. Was given breathing treatment. Continues to use accessory muscles. Was given magnesium. Unstable for transfer. Explained to the family. Continue monitoring. EKG reviewed does not show any acute changes. Chest x-ray reviewed does show pneumonitis. [facility] approved inpatient [id number]. [place] [address] Ph: [phone] DIAGNOSTIC IMAGING Diagnostic Imaging Report : [id number] Signed PATIENT: JAS CASTELLONT: [id number] UNIT: [id number] : 1935 LOC: ER ROOM / BED: / AGE / SEX: 89 / M ADM STATUS: REG ER SERVICE 5 ORDERING PHYSICIAN: JO CUMMINS MD PROCEDURE(s): HWOCT - HEAD WITHOUT CONTRAST REASON: fall ORDER NUMBER(s): [id number], ACCESSION NUMBER(s): [id number] EXAM: CT HEAD WITHOUT CONTRAST INDICATION: fall TECHNIQUE: CT of the head without intravenous contrast. Coronal and sagittal reformatted images are submitted. Radiation Dose : 1. Head: CT Dose: CTDI volume is 48.4 mGy. Dose-length product is 826.2 mGy*cm The dose indicators for CT are the volume Computed Tomography (CT) Dose Index (CTDIvol) and the Dose Length Product (DLP), and are measured in units of mGy and mGy-cm, respectively. These indicators are not patient dose, but values generated from the CT scanner acquisition factors. The report includes radiation exposure data for exposures received during this examination. All CT scans at this medical facility are performed using dose modulation techniques as appropriate to a performed exam including the following: Automated exposure control was utilized; adjustment of the MA and/or KV according to patient size; and use of iterative reconstruction technique. COMPARISON: HEAD WITHOUT CONTRAST on DOS: 01/13/22 FINDINGS: There is no evidence of acute intracranial hemorrhage, extra-axial collection, mass effect, midline shift, herniation or hydrocephalus. Age-appropriate volume loss. The ventricles, sulci and cisterns are age appropriate. The langley-white differentiation is intact. The mastoid air cells are clear. Mucosal thickening in the right maxillary sinus. No depressed calvarial fracture. The surrounding soft tissues are unremarkable. IMPRESSION: 1. No evidence of acute intracranial abnormality. ATED BY: FERNANDA VIRAMONTES MD DICTATED DATE/TIME: 10/20/24718 SIGNED BY: FERNANDA VIRAMONTES MD SIGNED DATE/TIME: 10/20/24718 CC: [place] [address] Ph: [phone] DIAGNOSTIC IMAGING Diagnostic Imaging Report : [id number] Signed PATIENT: JAS CASTELLONT: [id number] UNIT: [id number] : 1935 LOC: ER ROOM / BED: / AGE / SEX: 89 / M ADM STATUS: REG ER SERVICE 5 ORDERING PHYSICIAN: JO CUMMINS MD PROCEDURE(s): CXRP - CHEST PORTABLE REASON: sob ORDER NUMBER(s): [id number], ACCESSION NUMBER(s): [id number] CHEST RADIOGRAPH Indication: sob Technique: Single frontal view of the chest was obtained Comparison: XY CHEST PORTABLE on DOS: 08/19/24 FINDINGS: Lines and Tubes: None Lungs: Bibasilar opacities are similar to prior study. The left hemidiaphragm is elevated. Pleura: No effusion. No pneumothorax. Cardiomediastinal contours: Cardiomegaly. Uncoiled thoracic aorta. Bones: No acute osseous abnormality. IMPRESSION: 1. Similar bibasilar airspace disease which may reflect atelectasis or pneumonia. ATED BY: FERNANDA VIRAMONTES MD DICTATED DATE/TIME: 10/20/24 0717 SIGNED BY: FERNANDA VIRAMONTES MD SIGNED DATE/TIME: 10/20/24 071 Time of 1ST Reevaluation: 06:50 Reevaluation 1ST: Unchanged Patient Education/Counseling: Diagnosis, Treatment, Prognosis Family Education/Counseling: No Family Present Additional Information The following tests were ordered, and results were reviewed by me: CT HEAD WO CON, TROP -x3, XY CHEST, CBC, BMP Additional Information was gathered from interviewing the following independent historians: EMS I reviewed and agreed with the following test results read by other providers: XY CHEST, CT HEAD WO CON I discussed treatment and results with medical personnel and: Patient Comprehensive systems review obtained and negative except for what is stated in the HPI. Departure 1 Departure Time of Disposition: 07:28 Impression: Primary Impression: CHF (congestive heart failure) Qualified Codes: I50.43 - Acute on chronic combined systolic (congestive) and diastolic (congestive) heart failure Additional Impression: COPD exacerbation Disposition: ADMITTED INPATIENT Admit to: Med Surg Condition: Guarded Critical Care Note Critical Care Time?: Yes (90 min-critical care time only) Critical care comment: Placed on oxygen Stability Stability form required: No Heart Score Heart Score: Heart Score Response (Comments) Value History Slightly Suspicious 0 EKG Normal 0 Age >65 2 Risk Factors >3 or Hx ASHD 2 Troponin Normal limit 0 Total 4 I personally scribed for JO CUMMINS MD ([email or web address]) on 10/20/24 at 06:49. Electronically submitted by Jossy Garsia ([email or web address]). I personally scribed for JO CUMMINS MD ([email or web address]) on 10/20/24 at 06:53. Electronically submitted by Jossy Garsia ([email or web address]). I personally scribed for JO CUMMINS MD ([email or web address]) on 10/20/24 at 07:56. Electronically submitted by Jossy Garsia ([email or web address]). JO CUMMINS MD Oct 20, 2024 06:49
--- NOTE | 2024-10-20 06:58 | ECG ---
[facility] Test Date: 2024-10-20 Test Time: 06:12:27 Pat Name: JIMMIE CASTELLON Department: ED Room: 0277 Gender: M Cab Starter: EDDIE : 1935 Requested By: JO CUMMINS Order Number: [id number] Reading MD: Manan Otero Measurements Intervals [place] Rate: 75 P: 82 OK: 172 QRS: 15 QRSD: 119 T: 44 QT: 412 QTc: 461 Interpretive Statements Sinus rhythm Nonspecific intraventricular conduction delay Baseline wander in lead(s) I,III,aVL,aVF Electronically Signed On 10-24-2024 20:51:17 PDT by Manan Otero Please click the below link to view image of tracing.
--- NOTE | 2024-10-20 07:19 | DVH ---
CHEST RADIOGRAPH Indication: sob Technique: Single frontal view of the chest was obtained Comparison: XY CHEST PORTABLE on DOS: 08/19/24 FINDINGS: Lines and Tubes: None Lungs: Bibasilar opacities are similar to prior study. The left hemidiaphragm is elevated. Pleura: No effusion. No pneumothorax. Cardiomediastinal contours: Cardiomegaly. Uncoiled thoracic aorta. Bones: No acute osseous abnormality. IMPRESSION: 1. Similar bibasilar airspace disease which may reflect atelectasis or pneumonia.
--- NOTE | 2024-10-20 07:21 | DVH ---
EXAM: CT HEAD WITHOUT CONTRAST INDICATION: fall TECHNIQUE: CT of the head without intravenous contrast. Coronal and sagittal reformatted images are s ubmitted. Radiation Dose : 1. Head: CT Dose: CTDI volume is 48.4 mGy. Dose-length product is 826.2 mGy*cm The dose indicators for CT are the volume Computed Tomography (CT) Dose Index (CTDIvol) and the Dose Length Product (DLP), and are measured in units of mGy and mGy-cm, respectively. These indicators are not patient dose, but values generated from the CT scanner acquisition factors. The report includes radiation exposure data for exposures received during this examination. All CT scans at this medical facility are performed using dose modulation techniques as appropriate to a performed exam including the following: Automated exposure control was utilized; adjustment of the MA and/or KV according to patient size; and use of iterative reconstruction technique. COMPARISON: HEAD WITHOUT CONTRAST on DOS: 01/13/22 FINDINGS: There is no evidence of acute intracranial hemorrhage, extra-axial collection, mass effect, midline s hift, herniation or hydrocephalus. Age-appropriate volume loss. The ventricles, sulci and cisterns are age appropriate. The lnagley-white differentiation is intact. The mastoid air cells are clear. Mucosal thickening in the right maxillary sinus. No depressed calvarial fracture. The surrounding soft tissues are unremarkable. IMPRESSION: 1. No evidence of acute intracranial abnormality.
[2024-10-20] MEDS: MAGNESIUM SULFATE 1GM/100ML 100 ML IV ONE (07:26)
[2024-10-20] MEDS: IPRATROPIUM BROM 0.5 MG/2.5ML INH SOL NEB ONE (07:26)
[2024-10-20] MEDS: methylPREDNISolone SOD SUCC 125 MG/2 ML VL IV ONE (07:26)
[2024-10-20] MEDS: ALBUTEROL SULF 2.5 MG/0.5ML(0.5%) NEB SOLN NEB ONE (07:26)
[2024-10-20 07:28] LABS: Basophils # (auto) 0 10 ^3/uL (0-0.2); Basophils % (auto) 0.5 % (0.0-2.0); Eosinophils # (auto) 0.1 10 ^3/uL (0-0.8); Eosinophils % (auto) 1.4 % (0.0-7.0); Hematocrit 38.8 % (41.0-53.0); Hemoglobin 12.8 g/dL (13.5-17.5); Lymphocytes # (auto) 1.4 10 ^3/uL (0.4-5.4); Lymphocytes % (auto) 16.4 % (10.0-50.0); Mean Corpuscular Hemoglobin 32.8 pg (28.0-32.0); Mean Corpuscular Hgb Conc. 32.9 g/dL (32.0-36.0); Mean Corpuscular Volume 99.6 fL (80.0-100.0); Monocytes # (auto) 0.8 10 ^3/uL (0-1.3); Monocytes % (auto) 8.8 % (0.0-12.0); Neutrophils # (auto) 6.3 10 ^3/uL (1.6-8.6); Neutrophils % (auto) 72.9 % (37.0-80.0); Nucleated Red Blood Cells % 0.1 %; Platelet Count (auto) 178 10^3/uL (140-450); Red Cell Distribution Width 16.5 % (11.8-14.3); White Blood Cell 8.6 10^3/uL (4.4-10.8)
[2024-10-20] MEDS: SODIUM CHLORIDE 0.9% 1,000 ML IV ONE (07:28)
[2024-10-20 07:29] LABS: Chloride 105 mmol/L (98-107); Potassium 4.2 mmol/L (3.5-5.1); Sodium 140 mmol/L (136-145)
[2024-10-20 07:30] LABS: Anion Gap 8 (5-15); Carbon Dioxide 27 mmol/L (20-31)
[2024-10-20 07:31] LABS: Calcium 9.7 mg/dL (8.7-10.4)
[2024-10-20 07:35] LABS: BUN/Creatinine Ratio 14.9 (10.0-20.0); Blood Urea Nitrogen 13 mg/dL (9-23); Glucose 94 mg/dL (74-106)
[2024-10-20] MEDS: cefTRIAXone 1GM/50ML D5W 50 ML IV ONE (08:19)
[2024-10-20] MEDS: AZITHROMYCIN 500MG/ 250ML 250 ML IV ONE (08:35)
[2024-10-20] MEDS: MORPHINE SULFATE INJ 2 MG/ml SYRG IV ONE (08:42)
[2024-10-20] MEDS: ONDANSETRON HCL 4 MG/2 ML VIAL IV ONE (08:42)
[2024-10-20] MEDS ORDERED: ACETAMINOPHEN 325 MG TAB PO PRN (10:15)
[2024-10-20] MEDS ORDERED: IPRATROPIUM BROM 0.5 MG/2.5ML INH SOL NEB SCH (10:15)
[2024-10-20] MEDS ORDERED: ALBUTEROL SULF 2.5 MG/0.5ML(0.5%) NEB SOLN NEB SCH (10:15)
[2024-10-20] MEDS ORDERED: HYDROmorphone HCL 2 MG/ML VL/or syr IV PRN (10:15)
[2024-10-20] MEDS ORDERED: HYDROcodone-ACET 5/325MG TAB PO PRN (10:15)
[2024-10-20] MEDS ORDERED: ONDANSETRON HCL 4 MG/2 ML VIAL IV PRN (10:15)
--- NOTE | 2024-10-20 10:18 | DVHHP2 ---
Admitting Diagnosis: Shortness of breaths History of Present Illness 89 year old male presents to the ED via EMS with a chief complaint of syncopal episode onset today (10/20/24). Patient states he went to the restroom, got up, felt dizzy, weak and felt like he was going to experience syncopal episode, sat down and called 911. Last night, patient was taking a shower began experiencing dizziness, weakness, try to get out of the shower and hold onto towel pole when it broke, he fell,landing on back and hitting his head. Upon EMS arrival BP was 148 systolic, orthostat was 115 systolic, blood sugar was 84. PMHx HTN, COPD, asthma, cancer. Denies chest pain, shortness of breath, nausea, vomiting, diarrhea, abdominal pain, fevers, chills. No other symptoms or modifying factors present at this time. PAST MEDICAL HISTORY: Asthma, Cancer, COPD, HTN Surgical History: Denies all surgeries Family History Family History: Reviewed,noncontributory to illness Social History Smoker: Non-Smoker Alcohol: Occasionally Drugs: Denies Drug Use Lives In: Home Patient Family History: Diabetes mellitus GRANDMOTHER FH: cancer 19 CHILD Glaucoma GRANDMOTHER Allergies: Coded Allergies: NO KNOWN ALLERGIES (Unverified , 07/17/20) Home Meds Active Scripts Prednisone (Prednisone) 20 Mg Tab, 20 MG PO QAM for 5 Days, #10 MG Prov:MONICA DODGE MD 08/23/24 Prednisone (Prednisone) 10 Mg Tab, 10 MG PO QAM for 5 Days, #5 MG Prov:MONICA DODGE MD 08/23/24 Furosemide (Lasix) 20 Mg Tb, 1 TAB PO DAILY for 7 Days, #7 TAB 1 Refill Prov:ANDRZEJ MALDONADO MD 06/10/24 Ipratropium [place] (Ipratropium [place]) 0.02 % Paz, 0.5 % HHN TID PRN, #120 ML Prov:GUILLERMO CARPENTER 04/23/24 Ciprofloxacin Hcl (Ciprofloxacin Hcl) 500 Mg Tab, 500 MG PO Q12HR for 7 Days, #14 MG Prov:AGUSTIN VALLEJO MD 07/20/21 Oxymetazoline HCl (Afrin Nasal [place]) 0.05 % Spr, 0.05 % NA BID for 2 Days, #2 SPRAYS Prov:ANNE MARIE RING MD 05/24/21 Reported Medications Multiple Vitamin (Multivitamins) Cap, 1 CAP PO DAILY, #30 CAP 3 Refills 07/19/20 Aspirin (Aspir-Low) 81 Mg Tab, 81 MG PO DAILY for 30 Days, MG 07/19/20 Albuterol Sulfate (VENTOLIN MDI) 90 Mcg Ih, 180 MCG IN Q4HPRN PRN for SHORTNESS OF BREATH for 30 Days, MCG 07/19/20 Tiotropium [place] Monohydrate (Spiriva Respimat) 2.5 Mcg/Act Spr, 2.5 MCG IN DAILY, SPRAY 07/19/20 Fluticasone-Salmeterol (Advair Diskus 500/50) 1 Puff Ih, 1 PUFF INH BID, #1 INHALER 5 Refills 07/19/20 Montelukast Sodium (Singulair) 5 Mg Chw, 10 MG PO HS, TAB.CHEW 07/19/20 Nitrofurantoin Monohydrate Mac (Macrobid) 100 Mg Cap, 100 MG PO BID, CAP 07/19/20 Tamsulosin Hcl (Flomax) 0.4 Mg Cap, 1 CAP PO DAILY, #90 CAP 3 Refills 07/19/20 Prednisone (Prednisone) 10 Mg Ritesh, 10 MG PO DAILY, PACK 07/19/20 Vital Signs Vital Signs Date Time Temp Pulse Resp B/P (MAP) Pulse Ox O2 Delivery O2 Flow Rate FiO2 10/20/24 09:12 74 13 129/75 10/20/24 07:35 99.8 99 99.8 10/20/24 07:35 Room Air* 0 21 Physical Exam Generally-89 years old male, well nourished well developed. No apparent distress HEENT-atraumatic, normocephalic Heart-regular rate and rhythm Lungs decreased breath sounds bilaterally Abdomen soft nontender nondistended Musculoskeletal-no edema cyanosis Neuro-AO x3, no focal deficits Results Labs Test 10/20/24 08:08 10/20/24 06:45 Range/Units Troponin I High Sensitivity 18 </=54 ng/L White Blood Count 8.6 4.4-10.8 10^3/uL Red Blood Count 3.90 L 4.5-5.90 10^6/uL Hemoglobin 12.8 L 13.5-17.5 g/dL Hematocrit 38.8 L 41.0-53.0 % Mean Corpuscular Volume 99.6 80.0-100.0 fL Mean Corpuscular Hemoglobin 32.8 H 28.0-32.0 pg Mean Corpuscular Hemoglobin Concent 32.9 32.0-36.0 g/dL Red Cell Distribution Width 16.5 H 11.8-14.3 % Platelet Count 178 140-450 10^3/uL Mean Platelet Volume 7.7 6.9-10.8 fL Neutrophils (%) (Auto) 72.9 37.0-80.0 % Lymphocytes (%) (Auto) 16.4 10.0-50.0 % Monocytes (%) (Auto) 8.8 0.0-12.0 % Eosinophils (%) (Auto) 1.4 0.0-7.0 % Basophils (%) (Auto) 0.5 0.0-2.0 % Neutrophils # (Auto) 6.3 1.6-8.6 10 ^3/uL Lymphocytes # (Auto) 1.4 0.4-5.4 10 ^3/uL Monocytes # (Auto) 0.8 0-1.3 10 ^3/uL Eosinophils # (Auto) 0.1 0-0.8 10 ^3/uL Basophils # (Auto) 0 0-0.2 10 ^3/uL Nucleated Red Blood Cells 0.1 % Sodium Level 140 136-145 mmol/L Potassium Level 4.2 3.5-5.1 mmol/L Chloride Level 105 98-107 mmol/L Carbon Dioxide Level 27 20-31 mmol/L Anion Gap 8 5-15 Blood Urea Nitrogen 13 9-23 mg/dL Creatinine 0.87 0.700-1.30 mg/dL Glomerular Filtration Rate Calc 82 >90 mL/min BUN/Creatinine Ratio 14.9 10.0-20.0 Serum Glucose 94 74-106 mg/dL Calcium Level 9.7 8.7-10.4 mg/dL Primary Diagnosis Acute COPD exacerbation Plan Status post ceftriaxone azithromycin in ED. check procalcitonin and CRP . If negative discontinue antibiotics Status post Solu-Medrol 125 mg in ED Continue Solu-Medrol 60 mg q.6 hours Duo nebs q.6 hours standing Monitor saturation Saturation goal greater than 92% Resume home meds Cardiac diet Full code Lovenox for DVT prophylaxis PPI while on steroids Plan discussed with: Patient Problems List: (1) COPD exacerbation Status: Acute Date of Service: Oct 20, 2024 Billing Provider: ALEJANDRO ROMO MD Common Visit Codes: [id number] INP/OBS CARE (HIGH) ALEJANDRO ROMO MD Oct 20, 2024 10:18
[2024-10-20] MEDS: PANTOPRAZOLE 40 MG/10 ML VIAL INJ IV SCH (10:31)
[2024-10-20] MEDS: methylPREDNISolone SOD SUCC 125 MG/2 ML VL IV SCH (10:31)
[2024-10-20] MEDS: MULTIPLE VITAMIN TAB PO SCH (10:35)
[2024-10-20] MEDS: ASPirin-EC 81 mg tab PO SCH (12:45)
[2024-10-20] MEDS: SODIUM CHLOR 0.9% PF (SALINE LOCK) 10ML VIAL/SYR IV SCH (14:02)
[2024-10-20] MEDS: ALBUTEROL SULF 2.5 MG/0.5ML(0.5%) NEB SOLN NEB SCH (18:54)
[2024-10-20] MEDS: IPRATROPIUM BROM 0.5 MG/2.5ML INH SOL NEB SCH (18:54)
[2024-10-20] MEDS: MONTELUKAST SODIUM 10 MG TAB PO SCH (23:09)
[2024-10-21] VITALS (17 sets, daily range): BP systolic 118–162; BP diastolic 58–89; PULSE 61–85; RESP 16–22; TEMP 97.3–98.1; O2SAT 93–100
[2024-10-21 07:13] LABS: Alanine Aminotransferase 16 U/L (7-40); Albumin 3.9 g/dL (3.2-4.8); Alkaline Phosphatase 69 U/L (46-116); Anion Gap 6 (5-15); Aspartate Aminotransferase 19 U/L (13-40); BUN/Creatinine Ratio 15.5 (10.0-20.0); Bilirubin, Total 0.6 mg/dL (0.2-1.0); Blood Urea Nitrogen 11 mg/dL (9-23); Calcium 9.5 mg/dL (8.7-10.4); Carbon Dioxide 24 mmol/L (20-31); Chloride 106 mmol/L (98-107); Potassium 4.5 mmol/L (3.5-5.1); Total Protein 6.2 g/dL (5.7-8.2)
[2024-10-21 07:14] LABS: Glucose 152 mg/dL (74-106); Sodium 136 mmol/L (136-145)
[2024-10-21 07:19] LABS: Basophils # (auto) 0 10 ^3/uL (0-0.2); Basophils % (auto) 0.2 % (0.0-2.0); Eosinophils # (auto) 0 10 ^3/uL (0-0.8); Hematocrit 37.7 % (41.0-53.0); Hemoglobin 12.2 g/dL (13.5-17.5); Lymphocytes # (auto) 0.7 10 ^3/uL (0.4-5.4); Lymphocytes % (auto) 7.6 % (10.0-50.0); Mean Corpuscular Hemoglobin 32.5 pg (28.0-32.0); Mean Corpuscular Hgb Conc. 32.4 g/dL (32.0-36.0); Mean Corpuscular Volume 100.3 fL (80.0-100.0); Monocytes # (auto) 0.4 10 ^3/uL (0-1.3); Monocytes % (auto) 4.3 % (0.0-12.0); Neutrophils # (auto) 8.2 10 ^3/uL (1.6-8.6); Neutrophils % (auto) 87.9 % (37.0-80.0); Platelet Count (auto) 166 10^3/uL (140-450); Red Blood Cells 3.76 10^6/uL (4.5-5.90); Red Cell Distribution Width 16.8 % (11.8-14.3); White Blood Cell 9.3 10^3/uL (4.4-10.8)
[2024-10-21] MEDS: cefTRIAXone 1GM/50ML D5W 50 ML IV SCH (09:19)
[2024-10-21] MEDS: ENOXAPARIN SOD 40 MG/0.4 ML SYRINGE SC SCH (09:23)
[2024-10-21] MEDS: FUROSEMIDE 20 MG TAB PO SCH (09:23)
[2024-10-21] MEDS: TAMSULOSIN HYDROCHLORIDE 0.4 MG CAP PO SCH (10:27)
[2024-10-21] MEDS: AZITHROMYCIN 500MG/ 250ML 250 ML IV SCH (10:28)
[2024-10-21] MEDS ORDERED: APIX5TAB PO (13:09)
[2024-10-21] MEDS ORDERED: FIN5T PO (13:09)
[2024-10-21] MEDS ORDERED: BISO5TAB44 PO (13:09)
[2024-10-21] MEDS ORDERED: RIOC1TAB12 PO (13:10)
--- NOTE | 2024-10-21 13:11 | DVHPN2 ---
Subjective Patient denies headache. Reports that his breathing has improved. Reviewed: Care Plan, Labs, Medications, Previous Orders Changes from previous H/P or p: No Changes General: Per HPI Objective Vitals Vital Signs Date Time Temp Pulse Resp B/P (MAP) Pulse Ox O2 Delivery O2 Flow Rate FiO2 10/21/24 11:22 68 16 100 10/21/24 11:16 Nasal Cannula 2.0 10/21/24 11:16 28 10/21/24 09:23 156/80 10/21/24 09:00 97.5 97.5 Intake/Output Intake and Output 10/21/24 06:59 Intake Total 300 ml Balance 300 ml Intake Oral 300 ml # Voids 1 General Appearance: Alert, Oriented X3, Cooperative, mild distress HEENT: Atraumatic, PERRLA Lungs: Clear to auscultation, Normal air movement Cardiovascular: Normal S1, Normal S2 Back: Flank Tenderness, Midline Tenderness Musculoskeletal: Normal sensory function, Normal motor function Skin: Dry, Intact Psych/Mental Status: Mental status NL, Mood NL Medications Current Medications Medications Dose Ordered Sig/Marcello Route Start Time Stop Time Status Last Admin Dose Admin Aspirin 81 mg DAILY PO 10/20/24 12:15 10/20/24 12:45 81 MG Furosemide 20 mg DAILY PO 10/21/24 10:00 10/21/24 09:23 20 MG Tamsulosin HCl 0.4 mg DAILY PO 10/21/24 10:00 10/21/24 10:27 0.4 MG Patient Own Medication 1 puff BID PO 10/20/24 22:00 Montelukast Sodium 10 mg HS PO 10/20/24 22:00 10/20/24 23:09 10 MG Multivitamins 1 tab DAILY PO 10/20/24 10:31 10/21/24 09:23 1 TAB Methylprednisolone Sodium Succinate 62.5 mg Q6H IV 10/20/24 10:15 10/21/24 09:24 62.5 MG Sodium Chloride 10 ml Q8HR IV 10/20/24 14:00 10/21/24 05:04 10 ML Docusate Sodium 100 mg BIDPRN PRN PO 10/20/24 10:15 Acetaminophen 650 mg Q6HP PRN PO 10/20/24 10:15 Acetaminophen/ Hydrocodone Bitart 1 tab Q4HP PRN PO 10/20/24 10:15 Hydromorphone HCl 0.5 mg Q4HP PRN IV 10/20/24 10:15 Ondansetron HCl 4 mg Q4HP PRN IV 10/20/24 10:15 Enoxaparin Sodium 40 mg DAILY SC 10/21/24 10:00 10/21/24 09:23 40 MG Pantoprazole Sodium 40 mg DAILY IV 10/20/24 10:15 10/21/24 09:20 40 MG Ceftriaxone Sodium 50 ml @ 100 mls/hr DAILY IV 10/21/24 10:00 10/21/24 09:19 100 MLS/HR Azithromycin 250 ml @ 125 mls/hr DAILY IV 10/21/24 10:00 10/21/24 10:28 125 MLS/HR Albuterol 2.5 mg Q6H NEB 10/20/24 18:00 10/21/24 11:16 2.5 MG Ipratropium [place] 0.5 mg Q6H NEB 10/20/24 18:00 10/21/24 11:16 0.5 MG Laboratory Results Laboratory Tests 10/21/24 06:30 Chemistry Test 10/21/24 06:30 Albumin 3.9 g/dL (3.2-4.8) Calcium Level 9.5 mg/dL (8.7-10.4) Total Protein 6.2 g/dL (5.7-8.2) LFT Test 10/21/24 06:30 Alanine Aminotransferase (ALT) 16 U/L (7-40) Alkaline Phosphatase 69 U/L (46-116) Aspartate Amino Transferase (AST) 19 U/L (13-40) Total Bilirubin 0.6 mg/dL (0.2-1.0) Labs and/or images reviewed: Labs reviewed by me, Image(s) reviewed by me Assessment/Plan Assessment/Plan Impression: -acute on chronic hypoxic respiratory failure -syncope -? Left lower lobe pneumonia -COPD with exacerbation -chronic diastolic heart failure -pulmonary hypertension Plan: -continue bronchodilators -decrease Solu-Medrol to 40 mg IV q.8 hours -continue current antibiotic therapy -add Pulmicort -hold anticoagulation given recent fall with head trauma -restart Adempas when family brings prescription in -repeat labs and chest x-ray in a.m. -unstable to transfer to [facility] at this time given respiratory status. Total time spent with patient discussing and formulating plan of care: 35 minutes. This medical document was created using an electronic medical record system with [employer] computerized dictation system. Although this document has been carefully reviewed, there may still be some phonetic and typographical errors. These areas are purely typographical due to imperfections of the software programs, and do not reflect any compromise in the patient's medical care. Plan discussed with: Patient, Other (RN) My Orders Orders - ORTEGA BUITRAGO NP Procedure Category Date Status Time Methylprednisolone PHA 10/21/24 Transmitted Sod Succ (Solu Medrol 18:15 Chest Portable XY 10/22/24 Transmitted 04:00 Budesonide PHA 10/21/24 Verified (Inhalation) 22:00 Date of Service: Oct 21, 2024 Billing Provider: ORTEGA BUITRAGO NP Common Visit Codes: [id number] INP/OBS CARE(HIGH) ORTEGA BUITRAGO NP Oct 21, 2024 13:11
[2024-10-21] MEDS: methylPREDNISolone SOD SUCC 125 MG/2 ML VL IV SCH (18:11)
[2024-10-21] MEDS: BUDESONIDE (INHALATION) 0.5 MG/2 ML NEB NEB SCH (22:18)
[2024-10-22] VITALS (14 sets, daily range): BP systolic 116–155; BP diastolic 55–87; PULSE 70–88; RESP 16–82; TEMP 97.4–97.6; O2SAT 96–100
--- NOTE | 2024-10-22 06:57 | DVH ---
EXAM: XR Chest, 1 View CLINICAL INDICATION: pna TECHNIQUE: Frontal view of the chest. COMPARISON: XY CHEST PORTABLE on DOS: 10/20/24, XY CHEST PORTABLE on DOS: 08/19/24, XY CHEST XRAY 1 EW on DOS: 08/16/24, XY CHEST PORTABLE on DOS: 08/14/24, XY CHEST PORTABLE on DOS: 08/11/24 FINDINGS: LUNGS AND PLEURAL SPACES: Bibasilar atelectasis or pneumonia. No pneumothorax. HEART: Unremarkable. No cardiomegaly. MEDIASTINUM: Unremarkable. Normal mediastinal contour. BONES/JOINTS: Unremarkable. No acute fracture. OTHER FINDINGS: . IMPRESSION: Bibasilar atelectasis or pneumonia.
[2024-10-22 07:16] LABS: Basophils # (auto) 0 10 ^3/uL (0-0.2); Basophils % (auto) 0.2 % (0.0-2.0); Eosinophils # (auto) 0 10 ^3/uL (0-0.8); Hematocrit 37.5 % (41.0-53.0); Hemoglobin 12.2 g/dL (13.5-17.5); Lymphocytes # (auto) 1.1 10 ^3/uL (0.4-5.4); Lymphocytes % (auto) 8.7 % (10.0-50.0); Mean Corpuscular Hemoglobin 32.4 pg (28.0-32.0); Mean Corpuscular Hgb Conc. 32.6 g/dL (32.0-36.0); Mean Corpuscular Volume 99.3 fL (80.0-100.0); Monocytes # (auto) 1.1 10 ^3/uL (0-1.3); Monocytes % (auto) 8.8 % (0.0-12.0); Neutrophils # (auto) 10.6 10 ^3/uL (1.6-8.6); Neutrophils % (auto) 82.3 % (37.0-80.0); Nucleated Red Blood Cells % 0.1 %; Platelet Count (auto) 167 10^3/uL (140-450); Red Blood Cells 3.78 10^6/uL (4.5-5.90); Red Cell Distribution Width 16.4 % (11.8-14.3); White Blood Cell 12.9 10^3/uL (4.4-10.8)
[2024-10-22 07:41] LABS: Alanine Aminotransferase 12 U/L (7-40); Alkaline Phosphatase 63 U/L (46-116); Anion Gap 6 (5-15); Aspartate Aminotransferase 13 U/L (13-40); BUN/Creatinine Ratio 13.9 (10.0-20.0); Blood Urea Nitrogen 10 mg/dL (9-23); Calcium 9.8 mg/dL (8.7-10.4); Carbon Dioxide 31 mmol/L (20-31); Chloride 101 mmol/L (98-107); Potassium 4.2 mmol/L (3.5-5.1); Sodium 138 mmol/L (136-145); Total Protein 6.1 g/dL (5.7-8.2)
[2024-10-22 07:42] LABS: Albumin 3.8 g/dL (3.2-4.8); Bilirubin, Total 0.5 mg/dL (0.2-1.0)
[2024-10-22 07:43] LABS: Glucose 117 mg/dL (74-106)
[2024-10-22] MEDS: ADEMPAS 0.5 MG PO SCH (13:27)
--- NOTE | 2024-10-22 14:24 | DVHPN2 ---
Subjective Subjective dyspnea Reviewed: Care Plan, Labs, Medications, Previous Orders Changes from previous H/P or p: Changes General: Per HPI Objective Vitals Vital Signs Date Time Temp Pulse Resp B/P (MAP) Pulse Ox O2 Delivery O2 Flow Rate FiO2 10/22/24 13:00 97.5 70 16 154/87 (109) 100 97.5 10/22/24 11:53 Nasal Cannula* 2 28 Intake/Output Intake and Output 10/22/24 07:00 Intake Total 1700 ml Output Total 1750 ml Balance -50 ml Intake Oral 1400 ml IV Total 300 ml Output Urine Total 1750 ml General Appearance: Alert, Oriented X3, Cooperative, mild distress HEENT: Atraumatic, PERRLA Lungs: Normal air movement, Other (Inspiratory and expiratory wheezing) Cardiovascular: Normal S1, Normal S2 Back: Flank Tenderness, Midline Tenderness Musculoskeletal: Normal sensory function, Normal motor function Skin: Dry, Intact Psych/Mental Status: Mental status NL, Mood NL Medications Current Medications Medications Dose Ordered Sig/Marcello Route Start Time Stop Time Status Last Admin Dose Admin Aspirin 81 mg DAILY PO 10/20/24 12:15 10/20/24 12:45 81 MG Furosemide 20 mg DAILY PO 10/21/24 10:00 10/22/24 09:30 20 MG Tamsulosin HCl 0.4 mg DAILY PO 10/21/24 10:00 10/22/24 09:30 0.4 MG Patient Own Medication 1 puff BID PO 10/20/24 22:00 Montelukast Sodium 10 mg HS PO 10/20/24 22:00 10/21/24 22:09 10 MG Multivitamins 1 tab DAILY PO 10/20/24 10:31 10/22/24 09:30 1 TAB Sodium Chloride 10 ml Q8HR IV 10/20/24 14:00 10/22/24 06:00 10 ML Docusate Sodium 100 mg BIDPRN PRN PO 10/20/24 10:15 Acetaminophen 650 mg Q6HP PRN PO 10/20/24 10:15 Acetaminophen/ Hydrocodone Bitart 1 tab Q4HP PRN PO 10/20/24 10:15 Hydromorphone HCl 0.5 mg Q4HP PRN IV 10/20/24 10:15 Ondansetron HCl 4 mg Q4HP PRN IV 10/20/24 10:15 Enoxaparin Sodium 40 mg DAILY SC 10/21/24 10:00 10/21/24 09:23 40 MG Pantoprazole Sodium 40 mg DAILY IV 10/20/24 10:15 10/22/24 09:30 40 MG Ceftriaxone Sodium 50 ml @ 100 mls/hr DAILY IV 10/21/24 10:00 10/22/24 08:49 100 MLS/HR Azithromycin 250 ml @ 125 mls/hr DAILY IV 10/21/24 10:00 10/22/24 09:27 125 MLS/HR Albuterol 2.5 mg Q6H NEB 10/20/24 18:00 10/22/24 11:53 2.5 MG Ipratropium [place] 0.5 mg Q6H NEB 10/20/24 18:00 10/22/24 11:52 0.5 MG Methylprednisolone Sodium Succinate 40 mg Q8H IV 10/21/24 18:15 10/22/24 09:33 40 MG Budesonide 0.5 mg BID NEB 10/21/24 22:00 10/22/24 06:39 0.5 MG Patient Own Medication 1 TID PO 10/22/24 14:00 10/22/24 13:28 1 Patient Own Medication 0.5 TID PO 10/22/24 14:00 10/22/24 13:27 0.5 Laboratory Results Laboratory Tests 10/22/24 06:40 Chemistry Test 10/22/24 06:40 Albumin 3.8 g/dL (3.2-4.8) Calcium Level 9.8 mg/dL (8.7-10.4) Total Protein 6.1 g/dL (5.7-8.2) LFT Test 10/22/24 06:40 Alanine Aminotransferase (ALT) 12 U/L (7-40) Alkaline Phosphatase 63 U/L (46-116) Aspartate Amino Transferase (AST) 13 U/L (13-40) Total Bilirubin 0.5 mg/dL (0.2-1.0) Labs and/or images reviewed: Labs reviewed by me, Image(s) reviewed by me Assessment/Plan Assessment/Plan Impression: -acute on chronic hypoxic respiratory failure -syncope -? Left lower lobe pneumonia -COPD with exacerbation -chronic diastolic heart failure -pulmonary hypertension Plan: Events: Patient with persistent subjective dyspnea. Noted audible wheezing. -Adempas restarted -continue bronchodilators -decrease Solu-Medrol to 40 mg IV q.8 hours -continue current antibiotic therapy -add Pulmicort -hold anticoagulation given recent fall with head trauma -repeat labs and chest x-ray in a.m. -unstable to transfer to [facility] at this time given respiratory status. Total time spent with patient discussing and formulating plan of care: 35 minutes. This medical document was created using an electronic medical record system with [employer] dictation system. Although this document has been carefully reviewed, there may still be some phonetic and typographical errors. These areas are purely typographical due to imperfections of the software programs, and do not reflect any compromise in the patient's medical care. Plan discussed with: Patient, Other (RN) My Orders Orders - ORTEGA BUITRAGO NP Procedure Category Date Status Time Patients Own PHA 10/22/24 In Process Medication 14:00 Patients Own PHA 10/22/24 In Process Medication 14:00 Pt Request For Service PT 10/22/24 Logged 14:02 Date of Service: Oct 22, 2024 Billing Provider: ORTEGA BUITRAGO NP Common Visit Codes: [id number] INP/OBS CARE(HIGH) ORTEGA BUITRAGO NP Oct 22, 2024 14:24
[2024-10-22] MEDS: APIXABAN 2.5 MG TAB PO SCH (20:54)
[2024-10-22] MEDS: DOCUSATE SOD 100 MG CAP PO PRN (20:54)
[2024-10-23] VITALS (19 sets, daily range): BP systolic 97–148; BP diastolic 57–81; PULSE 67–94; RESP 16–20; TEMP 97.3–98.2; O2SAT 95–100
[2024-10-23 07:08] LABS: Albumin 3.8 g/dL (3.2-4.8); Alkaline Phosphatase 67 U/L (46-116); Aspartate Aminotransferase 17 U/L (13-40); Bilirubin, Total 0.6 mg/dL (0.2-1.0); Blood Urea Nitrogen 12 mg/dL (9-23); Total Protein 6.1 g/dL (5.7-8.2)
[2024-10-23 07:10] LABS: Basophils # (auto) 0 10 ^3/uL (0-0.2); Basophils % (auto) 0.1 % (0.0-2.0); Eosinophils # (auto) 0 10 ^3/uL (0-0.8); Hematocrit 35.8 % (41.0-53.0); Hemoglobin 12.3 g/dL (13.5-17.5); Lymphocytes # (auto) 1.3 10 ^3/uL (0.4-5.4); Lymphocytes % (auto) 12.2 % (10.0-50.0); Mean Corpuscular Hemoglobin 33.7 pg (28.0-32.0); Mean Corpuscular Hgb Conc. 34.4 g/dL (32.0-36.0); Monocytes # (auto) 0.9 10 ^3/uL (0-1.3); Monocytes % (auto) 8.8 % (0.0-12.0); Neutrophils # (auto) 8.4 10 ^3/uL (1.6-8.6); Neutrophils % (auto) 78.9 % (37.0-80.0); Platelet Count (auto) 170 10^3/uL (140-450); Red Blood Cells 3.65 10^6/uL (4.5-5.90); Red Cell Distribution Width 16.7 % (11.8-14.3); White Blood Cell 10.6 10^3/uL (4.4-10.8)
[2024-10-23 07:12] LABS: Anion Gap 8 (5-15)
[2024-10-23 07:13] LABS: Calcium 9.9 mg/dL (8.7-10.4); Carbon Dioxide 31 mmol/L (20-31); Chloride 99 mmol/L (98-107); Glucose 106 mg/dL (74-106); Potassium 4.2 mmol/L (3.5-5.1); Sodium 138 mmol/L (136-145)
[2024-10-23 07:19] LABS: Alanine Aminotransferase 14 U/L (7-40)
--- NOTE | 2024-10-23 10:27 | DVHPN2 ---
Progress Note Date Seen: Oct 23, 2024 Medical Necessity Reason Pt with a Central, PICC or Fol: No Subjective Patient reports: No new complaints Review of Systems: HEENT:Normal, CVS:Normal, RESPIRATORY:Normal, GI:Normal, :Normal, MSK:Normal, NEURO:Normal Objective vital signs Vital Sign Date Time Temp Pulse Resp B/P (MAP) Pulse Ox O2 Delivery O2 Flow Rate FiO2 10/23/24 09:00 97.8 84 18 136/70 (92) 96 97.8 10/23/24 06:47 2.0 28 10/23/24 06:02 Nasal Cannula* Total Intake and Output 10/22/24 10/22/24 10/23/24 15:00 23:00 07:00 Intake Total 780 ml 800 ml 450 ml Output Total 2000 ml 600 ml Balance 780 ml -1200 ml -150 ml medications Current Medications Medications Dose Ordered Sig/Marcello Route Start Time Stop Time Status Last Admin Dose Admin Aspirin 81 mg DAILY PO 10/20/24 12:15 10/20/24 12:45 81 MG Furosemide 20 mg DAILY PO 10/21/24 10:00 10/22/24 09:30 20 MG Tamsulosin HCl 0.4 mg DAILY PO 10/21/24 10:00 10/22/24 09:30 0.4 MG Patient Own Medication 1 puff BID PO 10/20/24 22:00 Montelukast Sodium 10 mg HS PO 10/20/24 22:00 10/22/24 20:54 10 MG Multivitamins 1 tab DAILY PO 10/20/24 10:31 10/22/24 09:30 1 TAB Sodium Chloride 10 ml Q8HR IV 10/20/24 14:00 10/23/24 05:24 10 ML Docusate Sodium 100 mg BIDPRN PRN PO 10/20/24 10:15 10/22/24 20:54 100 MG Acetaminophen 650 mg Q6HP PRN PO 10/20/24 10:15 Acetaminophen/ Hydrocodone Bitart 1 tab Q4HP PRN PO 10/20/24 10:15 Ondansetron HCl 4 mg Q4HP PRN IV 10/20/24 10:15 Ceftriaxone Sodium 50 ml @ 100 mls/hr DAILY IV 10/21/24 10:00 10/22/24 08:49 100 MLS/HR Albuterol 2.5 mg Q6H NEB 10/20/24 18:00 10/23/24 06:02 2.5 MG Ipratropium [place] 0.5 mg Q6H NEB 10/20/24 18:00 10/23/24 06:02 0.5 MG Budesonide 0.5 mg BID NEB 10/21/24 22:00 10/23/24 06:02 0.5 MG Patient Own Medication 1 TID PO 10/22/24 14:00 10/23/24 05:31 1 Patient Own Medication 0.5 TID PO 10/22/24 14:00 10/23/24 05:30 0.5 Apixaban 2.5 mg BID PO 10/22/24 22:00 10/22/24 20:54 2.5 MG Examination: GENERAL:Normal, HEENT:Normal, NECK:Normal, LUNGS:Normal, LUNGS:Abnormal (on oxygen), CVS:Normal, ABDOMEN:Normal, MSK:Normal, SKIN:Normal, NEURO:Normal, :Normal laboratory and microbiology Laboratory Tests 10/23/24 06:09 Test 10/23/24 06:09 Range/Units Serum Glucose 106 74-106 mg/dL Problem List/Assessment/Plan Problem List/Assessment/Plan * Acute on chronic respiratory failure. * Chronic obstructive pulmonary disease exacerbation. * chronic diastolic heart failure. * Questionable pneumonia, gram-positive, gram-negative. * Benign prostatic hypertrophy. * History of prostate cancer. * near syncopy advance care planning- full code- time spent 18 mins Plan discussed with: Patient, Daughter My Orders My Orders Orders - MONICA DODGE MD Procedure Category Date Status Time Azithromycin Tablet PHA 10/24/24 Transmitted (Zithromax Tablet) 10:00 Pantoprazole Tablet PHA 10/24/24 Transmitted (Protonix Tablet) 06:00 Prednisone Tablet PHA 10/24/24 Transmitted 10:00 * [employer] CONS 10/23/24 Transmitted Consult Date of Service: Oct 23, 2024 Billing Provider: MONICA DODGE MD Common Visit Codes: [id number] INP/OBS CARE(HIGH) Secondary Visit Codes: [id number] CARE PLAN 30 MINUTES MONICA DODGE MD Oct 23, 2024 10:26
[2024-10-24] VITALS (10 sets, daily range): BP systolic 102–130; BP diastolic 59–72; PULSE 76–91; RESP 16–22; TEMP 97.4–98.3; O2SAT 93–100
[2024-10-24] MEDS: PANTOPRAZOLE 40 MG TAB PO SCH (05:27)
--- NOTE | 2024-10-24 10:38 | DVHDS2 ---
Discharge Summary Date of Admission Oct 20, 2024 at 10:12 Date of Discharge: Oct 24, 2024 Labs/Diagnostic Data: Laboratory Results Test 10/23/24 06:09 10/20/24 10:32 10/20/24 08:08 White Blood Count 10.6 10^3/uL (4.4-10.8) Red Blood Count 3.65 10^6/uL (4.5-5.90) Hemoglobin 12.3 g/dL (13.5-17.5) Hematocrit 35.8 % (41.0-53.0) Mean Corpuscular Volume 98.0 fL (80.0-100.0) Mean Corpuscular Hemoglobin 33.7 pg (28.0-32.0) Mean Corpuscular Hemoglobin Concent 34.4 g/dL (32.0-36.0) Red Cell Distribution Width 16.7 % (11.8-14.3) Platelet Count 170 10^3/uL (140-450) Mean Platelet Volume 7.7 fL (6.9-10.8) Neutrophils (%) (Auto) 78.9 % (37.0-80.0) Lymphocytes (%) (Auto) 12.2 % (10.0-50.0) Monocytes (%) (Auto) 8.8 % (0.0-12.0) Eosinophils (%) (Auto) 0.0 % (0.0-7.0) Basophils (%) (Auto) 0.1 % (0.0-2.0) Neutrophils # (Auto) 8.4 10 ^3/uL (1.6-8.6) Lymphocytes # (Auto) 1.3 10 ^3/uL (0.4-5.4) Monocytes # (Auto) 0.9 10 ^3/uL (0-1.3) Eosinophils # (Auto) 0 10 ^3/uL (0-0.8) Basophils # (Auto) 0 10 ^3/uL (0-0.2) Nucleated Red Blood Cells 0.0 % Sodium Level 138 mmol/L (136-145) Potassium Level 4.2 mmol/L (3.5-5.1) Chloride Level 99 mmol/L (98-107) Carbon Dioxide Level 31 mmol/L (20-31) Anion Gap 8 (5-15) Blood Urea Nitrogen 12 mg/dL (9-23) Creatinine 0.75 mg/dL (0.700-1.30) Glomerular Filtration Rate Calc 86 mL/min (>90) BUN/Creatinine Ratio 16.0 (10.0-20.0) Serum Glucose 106 mg/dL (74-106) Calcium Level 9.9 mg/dL (8.7-10.4) Total Bilirubin 0.6 mg/dL (0.2-1.0) Aspartate Amino Transferase (AST) 17 U/L (13-40) Alanine Aminotransferase (ALT) 14 U/L (7-40) Alkaline Phosphatase 67 U/L (46-116) Total Protein 6.1 g/dL (5.7-8.2) Albumin 3.8 g/dL (3.2-4.8) Troponin I High Sensitivity 16 ng/L (</=54) C-Reactive Protein High Sensitivity 0.18 mg/dL (<1.0) Other Laboratory Tests 10/23/24 06:09 Brief Hx & Hospital Course: SEE DICTATED NOTE Condition at Discharge: Fair Final Diagnosis/Problems List COPD Discharge Disposition: Home Discharge Instruct/Medications Diet: Cardiac 2g Na,low cholest Activity: No Restrictions, As Tolerated Follow Up/Referral: AYAN VACA Medications: RESUME HOME MEDS SCRIPT TO PHARMACY Discharge Statement: "Patient was advised to return to the ER or call 911 if any headaches, dizziness, shortness of breath, chest pain, abdominal pain, bleeding, fevers, or worsening of medical condition. Patient was counseled about treatment plan, medications, possible side effects, patientverbalized understanding. All questions were answered to the best of my ability. This discharge took greater then 30 minutes in planning, reviewing documentation, counseling the patient, and discussing with other team members." ASSESSMENT ASSESSMENT Assessment COPD Date of Service: Oct 24, 2024 Billing Provider: MONICA DODGE MD Common Visit Codes: [id number] DISCH DAY >30min MONICA DODGE MD Oct 24, 2024 10:38
[2024-10-24] MEDS ORDERED: PRED20TA2 PO (10:39)
[2024-10-24] MEDS ORDERED: AZIT-185 PO (10:39)
--- NOTE | 2024-10-24 10:49 | DVHDS ---
DATE OF DISCHARGE: 10/24/2024 The patient is an 89-year-old gentleman who was admitted with history of dizziness and near syncopal episode. The patient has history of COPD, chronic respiratory failure, hypertension, prostate cancer. HOSPITAL COURSE: The patient had chest x-ray that showed possible atelectasis versus pneumonia. The patient had a head CT that was unremarkable. The patient was placed on steroids along with antibiotics. The patient's troponin levels were negative. He has since ambulated with physical therapy and is doing well. He will now be discharged home to resume his home medications as well as to be on prednisone 20 mg daily for five days and Zithromax 250 mg daily for five days. He will follow up with his primary at [place]. FINAL DIAGNOSES: * Acute on chronic respiratory failure. * Chronic obstructive pulmonary disease exacerbation. * Chronic diastolic heart failure. * Questionable pneumonia, gram-positive, gram-negative. * Benign prostatic hypertrophy. * Near syncope, questionable autonomic dysfunction. * History of prostate cancer. Time spent in discharge planning and review of plan with the patient and nursing was 38 minutes. MD JACQUELINE Packer/SHIRA TID: [id number] RECEIPT: [id number]
[2024-10-24] MEDS: predniSONE 20 MG TAB PO SCH (11:34)
[2024-10-24] MEDS: AZITHROMYCIN 250 MG TAB PO SCH (11:34)
== END 2024-10-24 13:55 | disposition home or self-care (01) | DRG 177 ==
LOC: EDBD 06:04 → ER 06:04 → OVERFLOW 10:12 → WEST WING 22:23
PROVIDERS: ADMIT Internal Medicine; ATTEND Internal Medicine
DX: J15.69 Pneumonia due to other Gram-negative bacteria (principal); J96.21 Acute and chronic respiratory failure with hypoxia; J44.1 Chronic obstructive pulmonary disease with (acute) exacerbation; I50.32 Chronic diastolic (congestive) heart failure; J44.0 Chronic obstructive pulmonary disease with (acute) lower respiratory infection; G90.89 Other disorders of autonomic nervous system; N40.0 Benign prostatic hyperplasia without lower urinary tract symptoms; I27.20 Pulmonary hypertension, unspecified; I11.0 Hypertensive heart disease with heart failure; Z79.899 Other long term (current) drug therapy; Z79.2 Long term (current) use of antibiotics; Z79.82 Long term (current) use of aspirin; Z83.3 Family history of diabetes mellitus; Z80.8 Family history of malignant neoplasm of other organs or systems; Z85.46 Personal history of malignant neoplasm of prostate
CPT/HCPCS: 36415; 70450; 71045; 80048; 80053; 84484; 85025; 86141; 93005; 94640; 96365; 96375; 97110; 97116; 97163; 97530; 99291; G0378; J2405; J2470